=== PATIENT | male | born 1950 | race Caucasian/White ===

== ENCOUNTER 2016-07-16 19:23 | Emergency (ER) | payer OTHER ==
[~2016-07-16] VITALS: Ht 162.6 cm; Wt 72.6 kg
[2016-07-16 19:32] VITALS: BP 169/89
[2016-07-16] MEDS ORDERED: diphenhydrAMINE INJ 50MG/ML VIAL (J1200) IV STA (19:32)
[2016-07-16] MEDS ORDERED: JANU50TA8 PO (19:42)
[2016-07-16] MEDS ORDERED: RANI1TAB6 PO (19:42)
[2016-07-16] MEDS ORDERED: GLIM2TAB PO (19:42)
[2016-07-16] MEDS ORDERED: dexameTHASONE 20 MG/5 ML VIAL (J1100) IV ONE (19:45)
[2016-07-16] MEDS ORDERED: FLUTISP (19:49)
[2016-07-16] MEDS ORDERED: ASPI325T PO (19:49)
[2016-07-16] MEDS ORDERED: RANI150C PO (19:49)
[2016-07-16] MEDS ORDERED: TYLE500T78 PO (19:49)
[2016-07-16] MEDS ORDERED: MUCUTAB PO (19:49)
[2016-07-16] MEDS ORDERED: PLAV75TA38 PO (19:49)
[2016-07-16] MEDS ORDERED: NORC5TAB PO (19:49)
[2016-07-16] MEDS ORDERED: TIOT18INH INH (19:49)
[2016-07-16] MEDS ORDERED: PRAV80TA2 PO (19:49)
[2016-07-16] MEDS ORDERED: LISI-538 PO (19:49)
[2016-07-16] MEDS ORDERED: ZITHTAB PO (21:51)
[2016-07-16] MEDS ORDERED: AUGM500T34 PO (22:47)
== END 2016-07-16 22:59 | disposition home or self-care (01) ==
LOC: M ED 20:47
DX: L50.0 Allergic urticaria (principal); R22.0 Localized swelling, mass and lump, head; T36.8X5A Adverse effect of other systemic antibiotics, initial encounter; Y92.89 Other specified places as the place of occurrence of the external cause; I25.10 Atherosclerotic heart disease of native coronary artery without angina pectoris; E11.9 Type 2 diabetes mellitus without complications; I10 Essential (primary) hypertension; K21.9 Gastro-esophageal reflux disease without esophagitis; Z95.5 Presence of coronary angioplasty implant and graft; F17.200 Nicotine dependence, unspecified, uncomplicated; Z88.5 Allergy status to narcotic agent; Z88.1 Allergy status to other antibiotic agents; Z88.8 Allergy status to other drugs, medicaments and biological substances; Z79.899 Other long term (current) drug therapy; Z79.84 Long term (current) use of oral hypoglycemic drugs; Z79.02 Long term (current) use of antithrombotics/antiplatelets; Z79.82 Long term (current) use of aspirin
CPT/HCPCS: 96374; 96375; 99282; J1100; J1200

== ENCOUNTER → 2016-10-13 | Outpatient (REF) | payer OTHER ==
[~2016-10-13] MED LIST: ASPI325T PO; AUGM500T34 PO; FLUTISP; GLIM2TAB PO; JANU50TA8 PO; LISI-538 PO; MUCUTAB PO; NORC1TAB4 PO; PLAV75TA38 PO; PRAV80TA2 PO; RANI150C PO; RANI1TAB6 PO; TIOT18INH INH; TYLE500T78 PO; ZITHTAB PO
[2016-10-13 18:04] LABS: ANION GAP 8 MEQ/L (8-16); BLOOD UREA NITROGEN 20 MG/DL (7-18); CALCIUM LEVEL 9.2 MG/DL (8.8-10.2); CARBON DIOXIDE LEVEL 27 MEQ/L (21-32); CHLORIDE LEVEL 103 MEQ/L (98-107); CREATININE FOR GFR 1.13 MG/DL (0.70-1.30); GLOMERULAR FILTRATION RATE > 60.0 (>49); GLUCOSE, FASTING 162 MG/DL (80-110); POTASSIUM SERUM 4.5 MEQ/L (3.5-5.1); SODIUM LEVEL 138 MEQ/L (136-145)
[2016-10-13 18:50] LABS: BASO # 0.1 K/mm3 (0.0-0.2); BASO % 1.1 % (0.0-1.0); EOS # 0.2 K/mm3 (0.0-0.50); EOS % 2.3 % (0.0-3.0); LARGE UNSTAINED CELL # 0.3 K/mm3 (0.0-0.4); LARGE UNSTAINED CELL % 3.2 % (0.0-4.0); LYMPH # 2.7 K/mm3 (1.5-4.5); LYMPH % 31.2 % (24.0-44.0); MEAN CORPUSCULAR HEMOGLOBIN 32.2 pg (27.0-33.0); MEAN CORPUSCULAR VOLUME 94.8 fl (80.0-96.0); MONO # 0.9 K/mm3 (0.0-0.8); MONO % 10.6 % (0.0-5.0); NEUTROPHILS # 4.4 K/mm3 (1.8-7.7); NEUTROPHILS % 51.5 % (36.0-66.0); PLATELET COUNT, AUTOMATED 261 k/mm3 (150-450); RED CELL DISTRIBUTION WIDTH 12.5 % (11.5-14.5); WHITE BLOOD COUNT 8.6 K/mm3 (4.0-10.0)
[2016-10-16 00:06] LABS: Lyme Disease IgG/IgM Antibodie <0.91 ISR (0.00-0.90); Lyme Disease IgM Ab Quantitati <0.80 index (0.00-0.79)
[2016-10-17 00:06] LABS: BABESIOSIS LEVEL IGG <1:10 (Neg:<1:10); BABESIOSIS LEVEL IGM <1:10 (Neg:<1:10)
== END ==
LOC: M LAB REF 16:50
PROVIDERS: ATTEND Physician Assistant
DX: J20.9 Acute bronchitis, unspecified (principal)

== ENCOUNTER → 2018-07-28 | Outpatient (CLI) | payer MEDICARE, OTHER ==
[~2018-07-28] MED LIST changes: +ASPI-1 PO; -ASPI325T PO; -NORC1TAB4 PO; +NORC1TAB7 PO; +PLAV1TAB2 PO; -PLAV75TA38 PO
--- NOTE | 2018-07-28 13:59 | REP ---
Chest two views HISTORY: COPD Comparison: 05/08/1979 Linear density is present in the right upper lobe consistent with scar. The left lung is clear. The heart is normal in size. The pulmonary vasculature is normal in appearance. The bony structure is intact. IMPRESSION: No acute disease. Electronically Signed by Lester Hauser MD 07/28/2018 01:50 P
== END ==
LOC: M SMT 11:47
PROVIDERS: ATTEND Internal Medicine Pulmonary Disease
DX: Z87.09 Personal history of other diseases of the respiratory system (principal)

== ENCOUNTER → 2019-06-21 | Outpatient (REF) | payer MEDICARE, OTHER ==
[~2019-06-21] MED LIST changes: -GLIM2TAB PO; +GLIM2TAB4 PO; +RANI-397 PO; -RANI1TAB6 PO
[2019-06-21 13:54] LABS: INFLUENZA A AMPLIFICATION NEGATIVE (NEGATIVE); INFLUENZA B AMPLIFICATION NEGATIVE (NEGATIVE)
== END ==
LOC: M LAB REF 12:17
PROVIDERS: ATTEND Registered Nurse
DX: R50.9 Fever, unspecified (principal); R11.2 Nausea with vomiting, unspecified; R19.7 Diarrhea, unspecified

== ENCOUNTER → 2019-08-11 | Outpatient (REF) | payer MEDICARE, OTHER | LOC: M LAB REF 16:20 | PROVIDERS: ATTEND Family Medicine | DX: E78.5 Hyperlipidemia, unspecified (principal) ==

== ENCOUNTER → 2019-09-26 | Outpatient (CLI) | payer MEDICARE, OTHER ==
[~2019-09-26] MED LIST changes: +AZEL0.055 NARES; +BREO1INH3 INH; +FAMO20TA PO; +MAPA500C PO; +MUCI600T31 PO; +TRES100I SC
== END ==
LOC: M LABSMTC 10:14
PROVIDERS: ATTEND Anesthesiology
DX: Z01.818 Encounter for other preprocedural examination (principal); Z11.59 Encounter for screening for other viral diseases
CPT/HCPCS: C9803; U0003

== ENCOUNTER 2019-09-29 10:07 | Day surgery (SDC) | payer MEDICARE, OTHER ==
[~2019-09-29] VITALS: Ht 162.6 cm; Wt 73.9 kg
[~2019-09-29 10:07] MED LIST changes: +NS 1,000 ML IV ONE
[2019-09-29] MEDS ORDERED: LIDOCAINE 2% 100MG/5ML SDV (FOR ANES.) As Ordered ONE (12:16)
[2019-09-29] MEDS ORDERED: propofoL 200 MG/20 ML VIAL As Ordered ONE (12:16)
--- NOTE | 2019-09-29 12:32 | ROOR ---
Patient Name: Lester Reynaga Procedure Date: 09/29/2019 12:06 PM Date of : 1950 Age: 69 Room: [facility] Gender: Male Note Status: Finalized Procedure: Colonoscopy Indications: High risk colon cancer surveillance: Personal history of colonic polyps Providers: Maciel Cohen Jr, MD Referring MD: Kyle Avelar MD Requesting Provider: Medicines: Propofol per Anesthesia Complications: No immediate complications. Procedure: Pre-Anesthesia Assessment: - Prior to the procedure, a History and Physical was performed, and patient medications and allergies were reviewed. The patient is competent. The risks and benefits of the procedure and the sedation options and risks were discussed with the patient. All questions were answered and informed consent was obtained. Patient identification and proposed procedure were verified by the physician and the nurse in the pre-procedure area and in the procedure room. Mental Status Examination: alert and oriented. Airway Examination: normal oropharyngeal airway and neck mobility. Respiratory Examination: clear to auscultation. CV Examination: normal. ASA Grade Assessment: II - A patient with mild systemic disease. After reviewing the risks and benefits, the patient was deemed in satisfactory condition to undergo the procedure. The anesthesia plan was to use moderate sedation / analgesia (conscious sedation). Immediately prior to administration of medications, the patient was re-assessed for adequacy to receive sedatives. The heart rate, respiratory rate, oxygen saturations, blood pressure, adequacy of pulmonary ventilation, and response to care were monitored throughout the procedure. The physical status of the patient was re-assessed after the procedure. The Colonoscope was introduced through the anus and advanced to the cecum, identified by appendiceal orifice and ileocecal valve. The colonoscopy was performed without difficulty. The patient tolerated the procedure well. The quality of the bowel preparation was poor. Findings: The rectum, recto-sigmoid colon, cecum, appendiceal orifice and ileocecal valve appeared normal. Two sessile polyps were found in the sigmoid colon and descending colon. The polyps were diminutive in size. These polyps were removed with a hot snare. Resection and retrieval were complete. For hemostasis, one hemostatic clip was successfully placed. There was no bleeding at the end of the procedure. Non-bleeding internal hemorrhoids were found during endoscopy. The hemorrhoids were Grade II (internal hemorrhoids that prolapse but reduce spontaneously) and Grade III (internal hemorrhoids that prolapse but require manual reduction). Impression: - Preparation of the colon was poor. - The rectum, recto-sigmoid colon, cecum, appendiceal orifice and ileocecal valve are normal. - Two diminutive polyps in the sigmoid colon and in the descending colon, removed with a hot snare. Resected and retrieved. Clip was placed. - Non-bleeding internal hemorrhoids. Recommendation: - Repeat colonoscopy in 5 years for surveillance. Maciel Cohen MD Maciel Cohen Jr, MD 09/29/2019 12:32:36 PM Electronically signed by Maciel Cohen Jr, MD Number of Addenda: 0 Note Initiated On: 09/29/2019 12:06 PM Estimated Blood Loss: Estimated blood loss: none.
[2019-09-29 12:50] VITALS: BP 130/61
== END 2019-09-29 13:06 | disposition home or self-care (01) ==
LOC: M OPP 10:07
PROVIDERS: ATTEND Surgery
DX: Z12.11 Encounter for screening for malignant neoplasm of colon (principal); Z86.010 Personal history of colon polyps; D12.5 Benign neoplasm of sigmoid colon; D12.4 Benign neoplasm of descending colon; J44.9 Chronic obstructive pulmonary disease, unspecified; E11.9 Type 2 diabetes mellitus without complications; F17.210 Nicotine dependence, cigarettes, uncomplicated; Z79.4 Long term (current) use of insulin; Z79.82 Long term (current) use of aspirin; Z79.899 Other long term (current) drug therapy; Z88.5 Allergy status to narcotic agent; Z88.8 Allergy status to other drugs, medicaments and biological substances; Z95.5 Presence of coronary angioplasty implant and graft

== ENCOUNTER → 2020-01-24 | Outpatient (CLI) | payer MEDICARE, OTHER ==
[~2020-01-24] MED LIST changes: -NS 1,000 ML IV ONE
--- NOTE | 2020-02-01 08:27 | REP ---
CHEST X-RAY: 2-VIEWS HISTORY: Other nonspecific abnormal finding of lung field. COMPARISON: Chest x-ray 07/28/2018. FINDINGS: The lungs are symmetrically aerated and clear. Pleural angles are sharp. Heart size is normal. There is evidence of coronary artery stent material over the anterior margin of the heart on lateral radiograph unchanged. There clips in the right upper quadrant of the abdomen. Pulmonary vasculature is not increased. No significant bony abnormality is seen. IMPRESSION: No acute disease. MTDD
== END ==
LOC: M LAB 07:15
PROVIDERS: ATTEND Internal Medicine Pulmonary Disease
DX: R91.8 Other nonspecific abnormal finding of lung field (principal)

== ENCOUNTER → 2020-01-24 | Outpatient (REF) | payer MEDICARE, OTHER ==
[2020-01-24 18:09] LABS: BASO % 0.3 % (0.0-1.0); EOS # 0.1 10^3/uL (0.0-0.5); EOS % 0.7 % (0.0-3.0); HEMATOCRIT 54.7 % (42.0-52.0); HEMOGLOBIN 17.6 g/dl (13.5-17.5); LYMPH # 2.1 10^3/uL (1.5-5.0); LYMPH % 16.9 % (24.0-44.0); MEAN CORPUSCULAR HEMOGLOBIN 30.4 pg (27.0-33.0); MEAN CORPUSCULAR HGB CONC 32.2 g/dl (32.0-36.5); MEAN CORPUSCULAR VOLUME 94.6 fl (80.0-96.0); MONO # 0.6 10^3/uL (0.0-0.8); NEUTROPHILS # 9.3 10^3/uL (1.5-8.5); NEUTROPHILS % 75.9 % (36.0-66.0); PLATELET COUNT, AUTOMATED 265 10^3/uL (150-450); RED BLOOD COUNT 5.78 10^6/uL (4.30-6.10); WHITE BLOOD COUNT 12.3 10^3/uL (4.0-10.0)
== END ==
LOC: M LAB REF 16:52
PROVIDERS: ATTEND Nurse Practitioner Family
DX: J44.1 Chronic obstructive pulmonary disease with (acute) exacerbation (principal)

== ENCOUNTER → 2020-04-23 | Outpatient (REF) | payer MEDICARE, OTHER | LOC: M LAB REF 11:24 | PROVIDERS: ATTEND Family Medicine | DX: Z01.89 Encounter for other specified special examinations (principal) ==

== ENCOUNTER → 2020-07-20 | Outpatient (CLI) | payer MEDICARE, OTHER ==
[~2020-07-20] MED LIST changes: -LISI-538 PO; +LISI20TA33 PO
--- NOTE | 2020-07-20 15:38 | REP ---
INDICATION: PAIN IN LEG COMPARISON: None. TECHNIQUE: Real time andre scale and Duplex Doppler evaluation of the bilateral lower extremity arterial vasculature using linear high frequency transducer. FINDINGS: Andre scale and duplex doppler images demonstrate slow flow in the proximal right common iliac artery suspicious for stenosis. Common iliac arteries are not well visualized due to bowel gas. There is severe diffuse bilateral plaquing of the lower extremity arterial structures. On the right there are diffuse monophasic waveforms. There is high-grade stenosis with trickle flow of the distal right superficial femoral artery. Diffuse low flow is seen in the calf arteries with high diastolic flow. Approximately 2-1 stenosis is noted of the right profunda. Biphasic waveform is seen in the left common femoral artery and profunda. Monophasic waveforms are seen from the proximal left SFA inferiorly with very slow flow velocities. There is reversal of flow in the left anterior tibial artery, the posterior tibial artery is the only patent artery supplying the foot. AMBROCIO right 0.64 left 0.48. Peak systolic velocities (cm/sec) Distal abdominal aorta: 41 Common iliac artery: Right 47; left 82 External iliac artery: Right 124; left 94 Common femoral artery: Right 169; Left 82 Profunda femoris: Right 293; Left 100 SFA (proximal): Right 70; Left 50 SFA (mid): Right 90; Left 25 SFA (distal): Right 44; Left 32 Popliteal artery: Right 38; Left 13 SHANTA (prox.): Right 18; Left 27 Tibioperoneal trunk: Right 24; Left 27 UTILITY ENGINEER (prox.): Right 76; Left 37 UTILITY ENGINEER (distal): Right 13; Left 20 SHANTA (distal): Right 4; Left reversed, 5 IMPRESSION: Suspect stenosis proximal right common iliac artery. Diffuse severe plaquing bilateral lower extremities. High-grade stenosis with trickle flow distal right SFA. Approximately 2-1 stenosis right profunda. Slow flow velocities throughout the left lower extremity arterial system with reversed flow at the left anterior tibial artery. <Electronically signed by Abelardo Andre > 07/20/20 1832
== END ==
LOC: M RAD 13:06
PROVIDERS: ATTEND Physician Assistant
DX: M79.604 Pain in right leg (principal); M79.605 Pain in left leg; R09.89 Other specified symptoms and signs involving the circulatory and respiratory systems

== ENCOUNTER → 2020-08-01 | Outpatient (CLI) | payer MEDICARE, OTHER ==
[2020-08-01 15:38] LABS: HEMATOCRIT 53.3 % (42.0-52.0); HEMOGLOBIN 17.1 g/dl (13.5-17.5); MEAN CORPUSCULAR HEMOGLOBIN 30.6 pg (27.0-33.0); MEAN CORPUSCULAR HGB CONC 32.1 g/dl (32.0-36.5); MEAN CORPUSCULAR VOLUME 95.3 fl (80.0-96.0); PLATELET COUNT, AUTOMATED 220 10^3/uL (150-450); RED BLOOD COUNT 5.59 10^6/uL (4.30-6.10); WHITE BLOOD COUNT 9.6 10^3/uL (4.0-10.0)
[2020-08-01 16:07] LABS: BLOOD UREA NITROGEN 24 MG/DL (7-18); CALCIUM LEVEL 9.4 MG/DL (8.8-10.2); CARBON DIOXIDE LEVEL 24 MEQ/L (21-32); CHLORIDE LEVEL 106 MEQ/L (98-107); CREATININE FOR GFR 0.98 MG/DL (0.70-1.30); GLOMERULAR FILTRATION RATE > 60.0 (>49); GLUCOSE, FASTING 148 MG/DL (70-100); SODIUM LEVEL 137 MEQ/L (136-145)
== END ==
LOC: M LAB 14:31
PROVIDERS: ATTEND Physician Assistant
DX: I87.2 Venous insufficiency (chronic) (peripheral) (principal)

== ENCOUNTER → 2020-08-08 | Outpatient (CLI) | payer MEDICARE, OTHER ==
[~2020-08-08] MED LIST changes: +ACETAMINOPHEN 325 MG TAB As Ordered ONE; +ISOVUE-300 61% 50ML VIAL As Ordered ONE; +LIDOCAINE 1% MDV 20ML VIAL As Ordered ONE; +MIDAZOLAM INJ 2MG/2ML VIAL (J2250 PER 1MG) As Ordered ONE; +PERCOCET 5MG/325MG TAB As Ordered ONE; +fentaNYL 100 MCG/2 ML INJECTION (J3010) As Ordered ONE
--- NOTE | 2020-08-08 09:52 | ROOPDOC ---
[facility] Report Of Operation Report of Operation DATE OF PROCEDURE: 08/08/20 PREPROCEDURE DIAGNOSES: Atherosclerosis in the [place] arteries with lifestyle limiting claudication, right lower extremity worse than left POSTPROCEDURE DIAGNOSES: Same PROCEDURE: 1. Ultrasound-guided access left common femoral artery 2. Aortoiliofemoral arteriogram 3. Selection left common femoral and superficial femoral artery with left lower extremity runoff 4. Cross chronic total occlusion left superficial femoral artery was selection popliteal artery and arteriogram 5. Selection distal anterior tibial artery and arteriogram 6. Angioplasty left superficial femoral artery with 6 x 200 [place] balloon 7. Stents left superficial femoral artery with 6 x 150 and 7 x 150 Innova stents with 6 x 200 [place] balloon post-dilation 8. Angioplasty left anterior tibial artery and posterior tibial artery with 2.5 x 220 Lenny balloon 9. Angioplasty right common iliac artery and proximal external iliac artery with 8 x 100 [place] balloon 10. Angioplasty left common iliac artery and proximal external iliac artery with 8 x 100 [place] balloon 11. Mynx closure left common femoral artery SURGEON: Conrado Jarrett MD ANESTHESIA: Local anesthesia 8 mL lidocaine. Moderate intravenous conscious sedation was supervised by Dr. Jarrett. The patient was independently monitored by registered nurse under the department of radiology using automated blood pressure, EKG, and pulse oximetry. The detailed sedation record is permanently stored in the hospital information system. The following is a brief sedation record: Start time 08:083, stop time 09:19, Versed 2 mg IV, fentanyl 100 g IV, heparin 4000 units IV. CONTRAST: 46 mL Isovue-300 INDICATION FOR PROCEDURE: This is a very pleasant 70-year-old gentleman with severe atherosclerosis of the bilateral lower extremities, multi-level at the iliacs femorals and tibial vessels. He has lifestyle limiting claudications in both lower extremities, but the right lower extremity is more symptomatic. Risks benefits and alternatives to and arteriogram and potential intervention were explained to the patient and he is agreeable to proceed. Informed consent was obtained. INTERPRETATION: 1. The distal aorta is calcified but widely patent with patent runoff into the bilateral common iliac arteries, but they are both ectatic and mildly stenotic throughout. On the right, there is also heavy plaque but less stenosis through the external iliac artery, but on the left there is heavy plaque and stenosis throughout the left iliac artery, especially near its origin just distal to the bifurcation of the common iliac artery. The hypogastric arteries are diminutive and calcified but patent. 2. The right common femoral artery has heavy calcified plaque and areas of focal stenosis ranging from 30-60%. There is good runoff into a very large profunda which provides extensive collateral flow to the distal superficial femoral artery and the popliteal artery. The SFA is patent proximally but heavily stenotic and has areas of focal stenosis near occlusion throughout the proximal two thirds the vessel. Just distal to the midportion of the vessel it occludes for proximally 4 cm and then has reconstituted flow from collaterals. There is heavy calcified plaque in the area of occlusion and throughout the vessel. The popliteal artery has some mild plaque proximally, but the mid and distal po rtions although somewhat diminutive are patent. The tibial runoff is also compromised. The best of the 3 vessels is the peroneal artery, with good flow all the way to the ankle. However, the right anterior tibial artery and posterior tibial artery has thready flow proximally, and intermittent occlusions with reconstitution all the way to the ankle with scant runoff to the foot. 3. After angioplasty of the superficial femoral artery, there is patent flow in the area of occlusion but multiple flow-limiting areas of residual stenosis and dissection in the areas of heaviest plaque throughout the vessel. After stenting and post dilating with a by 200 balloon, there is widely patent flow through the superficial femoral artery, but it is somewhat slow distally due to poor tibial runoff. 4. After angioplasty of both the posterior tibial artery and anterior tibial artery on the right, there was spasm in the distal vessels and limited runoff. After repeat angioplasty of the very distal right posterior tibial artery into the pedal arch, there is somewhat better flow through this vessel. After selection of the distal anterior tibial artery, we noted that there was no significant pedal runoff at the ankle and we were not able to cross into the dorsal pedis artery. There is a small amount of extravasation at the origin of the dorsal pedis artery after attempts, but this resolved quickly due to lack of flow. Completion tibial arteriogram showed good flow in the proximal aspect of L3 vessels, and good runoff through the posterior tibial and peroneal arteries although some spasm is present in the posterior tibial artery. The anterior tibial artery has sluggish flow but flow does make it to the ankle where there are some collateral vessels proximal to the foot. These collaterals to fill into the more distal foot, although they are very diminutive in size. 5. After angioplasty of the right iliac arteries, there is widely patent flow with minimal residual stenosis, no dissection extravasation noted. After angioplasty of the left iliac arteries, there is still some heavy plaque, but a marked improvement of inflow to the left iliac system. Most likely, we'll make come back to treat the left lower extremity, we will likely need to stents this area, before today the flow was much improved without stenting. No extravasation or embolization. REPORT OF OPERATION: The patient was brought to the angiographic suite in stable condition. His bilateral groins were prepped and draped in a sterile fashion. A timeout was performed. Sedation was administered without complication. His left groin was anesthetized with local anesthesia and a microneedle was used to access left common femoral artery under ultrasound guidance. A wire was passed through this access needle was removed. A 4 Indonesian sheath was placed and flushed with saline. A Glidewire and flushing catheter were advanced into the distal aorta and aortoiliofemoral arteriogram were performed, please interpretation above. With him and up and over the bifurcation selected the right common femoral and superficial femoral artery and right lower extremity arteriograms were performed, please interpretation above. We then advanced a wire down to the occlusion in the right at the vein exchange the sheath for 6 x 45 cm destination taken flushed the sheath was saline. A [place] catheter was used with Glidewire to cross through in the true lumen of the vessel through the occlusion to the popliteal artery. We then confirmed we're in the true lumen with a quick arteriogram at a selection of the popliteal artery. We then advanced the wire and a 6 x 200 [place] balloon was used to three-minute inflations to angioplasty along the length of the vessel. Following this, 6 x 150 Innova stent was placed from the distal SFA to the mid and extended with a 1 cm overlap with a 7 x 150 Innova stent and both stents were postdilated with a 6 x 200 [place] balloon. Following this there is widely patent flow throughout the SFA with no significant residual stenosis noted. No extravasation noted. We then exchange the wire for a 018 wire advantage and advances into the anterior tibial artery. We were able to cross distally and we angioplasty along the length of the vessel with multiple three-minute inflations with a 2-5 x 220 Lenny balloon. Following this, we advanced the wire into the posterior tibial artery and advanced the balloon and did similar three-minute inflations along the length of the vessel. After angioplasty, both vessels were patent, with some spasm, and limited outflow. We then replaced the wire and the posterior tibial artery and advanced and more distally into the pedal arch. We advanced the balloon down further and it is second distal angioplasty. Following this there was definitely improvement in the posterior tibial artery outflow. However, we could not cross into the dorsal pedis from the anterior tibial artery. We tried, and advance the balloon, but upon injection of contrast through the balloon for selection of the distal anterior tibial artery, we saw that there is a small amount of contrast extravasation from our attempts to cross into the dorsal pedis artery and limited collateral flow in the proximal. These collaterals did have minimal outflow more distally in the foot, but not as good as in my dorsal pedis flow would be. Unfortunately, this was as much tibial improvement as we could offer, but it is certainly much better. We then exchange the wire again back to the 035 Glidewire and over this we advanced an 8 x 100 [place] balloon into the right common iliac system and retracted R sheath into the left common iliac system. Three-minute inflation was performed and there was good flow following this with no significant residual stenosis. This seemed to resolve his minimal inflow issues on the right. We then retracted the balloon into the left iliac system and angioplasty for three-minute inflations along the left common iliac artery and external iliac artery proximally. Following this, there was definitely improvement in flow, but still some minimal stenosis at the area of heaviest plaque at the proximal external iliac artery. The more distal external iliac stenoses we did not address today. We will likely need further angioplasty and stenting of the left iliac system which we can do will be come back to treat the left lower extremity arterial disease. We therefore exchange the sheath over the wire for short 6 Indonesian sheath and deployed a Mynx closure device and pressure was held. Good hemostasis was noted. Following this, sterile dressings were applied and the patient was taken to recovery in stable condition. He tolerated the procedure and the sedation well. ESTIMATED BLOOD LOSS: Approximately 4 mL. COMPLICATIONS: none PLAN: It is okay to resume home diet it is okay to resume home diet and medications. Okay to resume Plavix in the morning, 08/09/2020. No lifting greater than 5 pounds for 72 hours, no strenuous exercise for 72 hours. We'll see the patient back in a week to check his groin access site and his perfusion. At that time we will discuss options to set him up for a left lower extremity arteriogram and intervention. We appreciate the opportunity to participate in the care of this patient. CONRADO JARRETT MD Aug 08, 2020 09:52
[2020-08-08 13:47] VITALS: BP 122/55
== END ==
LOC: M IRPRO 06:37
PROVIDERS: ATTEND Surgery Vascular Surgery
DX: I70.213 Atherosclerosis of native arteries of extremities with intermittent claudication, bilateral legs (principal); I70.92 Chronic total occlusion of artery of the extremities
CPT/HCPCS: 37220; 37222; 37226; 37228; 37232; 75630; 75774; 99152; 99153; C1725; C1729; C1760; C1769; C1876; C1887; C1894; J1644; J2250; J3010; Q9967

== ENCOUNTER → 2020-08-09 | Outpatient (CLI) | payer MEDICARE, OTHER ==
[~2020-08-09] MED LIST changes: -ACETAMINOPHEN 325 MG TAB As Ordered ONE; -ISOVUE-300 61% 50ML VIAL As Ordered ONE; +ISOVUE-370 76% 100ML VIAL As Ordered ONE; -LIDOCAINE 1% MDV 20ML VIAL As Ordered ONE; -MIDAZOLAM INJ 2MG/2ML VIAL (J2250 PER 1MG) As Ordered ONE; -PERCOCET 5MG/325MG TAB As Ordered ONE; -fentaNYL 100 MCG/2 ML INJECTION (J3010) As Ordered ONE
--- NOTE | 2020-08-09 11:51 | REP ---
INDICATION: LEG PAIN, S/P FEM LT TIB SHERRY ILIAC ARTERIES. Status post stents. Status post bilateral iliac and right superficial femoral and calf angioplasty on 08 August 2020. COMPARISON: Comparison is made with abdominal CT images from October 28, 2014.. TECHNIQUE: Helical scanning is acquired following the intravenous injection of 100 mL of Isovue 370. 3 mm axial images re-formatted. Coronal and sagittal MPR and coronal MIP images are generated. 3D surface rendered images are generated and reviewed in a rotational format. Curved MPR images are generated and reviewed as well. FINDINGS: Non angiographic incidental abnormalities include bilateral low-density adrenal lesions right larger than left. These are observed on the 2015 study. The left is unchanged the right measures 3.4 cm today and in 2015 it measured 2.6 cm. There are low-density nodules consistent with small benign adrenal adenomas. The gallbladder is surgically absent. There are tiny cortical cysts in each kidney 1 on each side. Dystrophic calcifications are seen in the prostate gland. Arterial vascular findings. The left gastric artery takes a direct aortic origin which is a normal variant. There is a combined celiac, SMA trunk (celiacomesenteric trunk) arising from the aorta several cm distal to the origin of the left gastric artery. There is some atherosclerotic soft plaquing in this common trunk but no high-grade stenosis is seen. The superior mesenteric artery contains some calcification but again no stenosis or occlusion is seen. The inferior mesenteric artery is patent at its origin with evidence of moderate 75-80% stenosis. The renal arteries are duplicated bilaterally. There are small bilateral nonstenotic upper pole branches. Some calcific plaquing is seen at the origin of the lower pole larger renal arteries bilaterally. No high-grade stenosis is seen. The suprarenal and infrarenal abdominal aorta is normal in caliber but heavily calcified. No high-grade aortic stenosis is seen. There is moderate atherosclerotic calcific and soft plaquing of the common iliac arteries bilaterally but no high-grade stenosis is seen. Heavy calcification is seen at the origin of the internal iliac arteries. These arteries are felt to be stenotic bilaterally at their origin but patent. The external iliac arteries are patent. On the right the external iliac artery shows moderate diffuse calcific and soft plaquing. There is approximately 50% narrowing of the external iliac artery in the right groin distally. This continues into the common femoral artery. There is approximately 60% stenosis at the origin of the common femoral artery on the right. Moderate calcific plaquing is seen. A 2nd 50% stenosis is seen in the distal common femoral artery on the right. There is a stent in place in the proximal superficial femoral artery on the right and the vessel appears patent. Patent stented is superficial femoral artery is seen to the popliteal. Popliteal artery is a good caliber and appears patent. There is atherosclerotic calcification at the bifurcation of the tibial-peroneal trunk but the 3 vessel calf runoff is seen to the ankle. On the left, there is atherosclerotic plaquing and calcification in the external iliac artery but no stenotic area greater than 50% is observed. The left common femoral artery is of good caliber although there is calcific plaquing. There is moderate stenosis at the origin of the superficial femoral artery on the left, 50%. The profunda and superficial femoral artery are patent on the left. There is irregular luminal narrowing of the mid superficial femoral artery on the left with 75 80% stenosis. This is somewhat elongate. Below the adductor canal the distal SFA and popliteal are of good caliber. The anterior tibial artery is not opacified in the mid calf. Tibioperoneal trunk and peroneal and posterior tibial arteries are patent to the distal calf. The posterior tibial artery is seen to be patent across the ankle. In general, there is less robust opacification of the calf runoff vessels on the left compared to the right. IMPRESSION: 1. Variant visceral anatomy including direct aortic origin of the left gastric and a celiacomesenteric trunk. Renal arteries are bilaterally duplicated as well. 2. Right lower extremity stenoses including a external iliac artery, right common femoral artery. Patent extensive stent in the right superficial femoral artery with three-vessel runoff. 3. Left common femoral artery stenosis. Multiple superficial femoral artery stenoses expected Ali distally with generally poor distal runoff flow. Anterior tibial artery on the left is not opacified. 4. Bilateral small benign adrenal adenomas and small renal cysts. <Electronically signed by Qasim Lira > 08/09/20 [id number]
== END ==
LOC: M RAD 10:18
PROVIDERS: ATTEND Surgery Vascular Surgery
DX: I70.203 Unspecified atherosclerosis of native arteries of extremities, bilateral legs (principal); N28.1 Cyst of kidney, acquired; M79.606 Pain in leg, unspecified
CPT/HCPCS: 75635; Q9967

== ENCOUNTER → 2020-09-12 | Outpatient (CLI) | payer MEDICARE, OTHER ==
[~2020-09-12] MED LIST changes: -ISOVUE-370 76% 100ML VIAL As Ordered ONE
--- NOTE | 2020-09-12 14:59 | REP ---
INDICATION: ATH DEBRA ART OF EXT WITH INTER JOSUE, SHERRY LEGS COMPARISON: None. TECHNIQUE: Bilateral lower extremity arterial Doppler. FINDINGS: All numeric values represent peak systolic velocities incm/sec. On the right: The ankle brachial index is 1.0 ROLL CUTTER: 236-157 biphasic Profunda: 195 biphasic SFA proximal stent: 108 biphasic SFA mid stent: 12/24/2053 biphasic SFA distal stent: 59-36 biphasic Popliteal :29 biphasic SHANTA proximal: 47 monophasic Tibioperoneal trunk: 58 monophasic SECURITY OPERATIONS MANAGER proximal: 61 monophasic SECURITY OPERATIONS MANAGER distal: 53 monophasic SHANTA distal: 37 monophasic On the left: The ankle brachial index is 0.57 ROLL CUTTER: 84 monophasic Profunda: 54 monophasic SFA proximal: 54 monophasic SFA mid: 12 monophasic SFA distal: 24 monophasic Popliteal: 11 monophasic SHANTA proximal: 44 monophasic Tibioperoneal trunk: 38 monophasic SECURITY OPERATIONS MANAGER proximal: 42 monophasic SECURITY OPERATIONS MANAGER distal: 27 monophasic SHANTA distal: 12 monophasic The technologist noted significant plaque in the right lower extremity from the common femoral artery into the bifurcation. In the proximal SFA to above the knee the stent is patent. Severe plaque was seen on the left with luminal narrowing felt to have increased from the prior exam IMPRESSION: As above <Electronically signed by Nemesio Brandt > 09/12/20 8421
== END ==
LOC: M RAD 12:04
PROVIDERS: ATTEND Physician Assistant
DX: I70.213 Atherosclerosis of native arteries of extremities with intermittent claudication, bilateral legs (principal)

== ENCOUNTER → 2020-12-04 | Outpatient (CLI) | payer MEDICARE, OTHER ==
[2020-12-04 14:36] LABS: INR 0.85
[2020-12-04 14:37] LABS: PARTIAL THROMBOPLASTIN TIME 32.4 SECONDS (25.9-37.0)
[2020-12-04 14:43] LABS: BLOOD UREA NITROGEN 30 MG/DL (7-18); CALCIUM LEVEL 9.3 MG/DL (8.8-10.2); CARBON DIOXIDE LEVEL 23 MEQ/L (21-32); CHLORIDE LEVEL 111 MEQ/L (98-107); CREATININE FOR GFR 1.02 MG/DL (0.70-1.30); GLOMERULAR FILTRATION RATE > 60.0 (>49); GLUCOSE, FASTING 148 MG/DL (70-100); SODIUM LEVEL 141 MEQ/L (136-145)
== END ==
LOC: M LAB 13:37
PROVIDERS: ATTEND Surgery Vascular Surgery
DX: I70.212 Atherosclerosis of native arteries of extremities with intermittent claudication, left leg (principal); D69.8 Other specified hemorrhagic conditions; Z01.818 Encounter for other preprocedural examination

== ENCOUNTER → 2020-12-05 | Outpatient (REF) | payer MEDICARE, OTHER ==
[2020-12-05 11:57] LABS: BASO # 0.1 10^3/uL (0.0-0.2); BASO % 0.4 % (0.0-1.0); EOS # 0.2 10^3/uL (0.0-0.5); EOS % 1.3 % (0.0-3.0); HEMATOCRIT 53.3 % (42.0-52.0); HEMOGLOBIN 16.9 g/dl (13.5-17.5); LYMPH # 2.6 10^3/uL (1.5-5.0); MEAN CORPUSCULAR HEMOGLOBIN 30.3 pg (27.0-33.0); MEAN CORPUSCULAR HGB CONC 31.7 g/dl (32.0-36.5); MEAN CORPUSCULAR VOLUME 95.7 fl (80.0-96.0); MONO # 0.9 10^3/uL (0.0-0.8); MONO % 7.7 % (2.0-8.0); NEUTROPHILS # 7.9 10^3/uL (1.5-8.5); NEUTROPHILS % 67.8 % (36.0-66.0); PLATELET COUNT, AUTOMATED 229 10^3/uL (150-450); RED BLOOD COUNT 5.57 10^6/uL (4.30-6.10); WHITE BLOOD COUNT 11.7 10^3/uL (4.0-10.0)
== END ==
LOC: M LAB 11:28
PROVIDERS: ATTEND Surgery Vascular Surgery
DX: Z01.818 Encounter for other preprocedural examination (principal); I70.212 Atherosclerosis of native arteries of extremities with intermittent claudication, left leg; D69.8 Other specified hemorrhagic conditions

== ENCOUNTER → 2021-01-10 | Outpatient (CLI) | payer MEDICARE, OTHER ==
--- NOTE | 2021-01-10 17:10 | REP ---
INDICATION: ABN IMAG THYROID NODULE. COMPARISON: None. TECHNIQUE: Real-time sonographic evaluation of thyroid performed. FINDINGS: Both lobes of the thyroid are normal in size, right lobe measuring 4.0 x 1.9 x 1.7 cm and left lobe 3.8 x 1.7 x 1.7 cm. There is a subtle slightly hypoechoic nodule in the left lower pole measuring 5 x 9 mm. A cyst in the right upper pole measures 6 x 7 x 5 mm. In the right lower pole there is a complex cystic and solid nodule measuring 11 x 8 x 11 mm. IMPRESSION: Small cystic and solid nodules as discussed in detail above. Utilizing TI-RADS criteria, none of the nodules fulfill size criteria for FNA or follow-up. <Electronically signed by Abelardo Andre > 01/10/21 [id number]
== END ==
LOC: M RAD 13:38
PROVIDERS: ATTEND Family Medicine
DX: E04.2 Nontoxic multinodular goiter (principal)

== ENCOUNTER → 2021-04-29 | Outpatient (REF) | payer MEDICARE, OTHER ==
[2021-04-29 14:09] LABS: ATYPICAL LYMPH 3 % (0-5); BASOPHILS 3 % (0-1); EOSINOPHILS 3 % (0-3); LYMPHOCYTES 67 % (16-44); MONOCYTES 5 % (0-5); NEUTROPHILS 19 % (28-66)
[2021-04-29 14:10] LABS: ANISOCYTOSIS 1+; OVALOCYTES 1+; PLATELET ESTIMATE NORMAL (NORMAL); POIKILOCYTOSIS 1+
== END ==
LOC: M LAB REF 11:49
PROVIDERS: ATTEND Family Medicine
DX: D72.89 Other specified disorders of white blood cells (principal)

== ENCOUNTER → 2021-04-30 | Outpatient (REF) | payer MEDICARE, OTHER ==
[2021-04-30 16:37] LABS: HEMATOCRIT 39.1 % (42.0-52.0); HEMOGLOBIN 12.5 g/dl (13.5-17.5); MEAN CORPUSCULAR VOLUME 93.8 fl (80.0-96.0); PLATELET COUNT, AUTOMATED 301 10^3/uL (150-450); RED BLOOD COUNT 4.17 10^6/uL (4.30-6.10); WHITE BLOOD COUNT 10.6 10^3/uL (4.0-10.0)
[2021-04-30 20:51] LABS: BASOPHILS 1 % (0-1); EOSINOPHILS 2 % (0-3); LYMPHOCYTES 54 % (16-44); METAMYELOCYTES 1 % (0-0); MONOCYTES 8 % (0-5); NEUTROPHILS 32 % (28-66)
[2021-04-30 20:52] LABS: PLATELET ESTIMATE NORMAL (NORMAL)
== END ==
LOC: M LAB REF 16:23
PROVIDERS: ATTEND Family Medicine
DX: D72.89 Other specified disorders of white blood cells (principal); Z79.82 Long term (current) use of aspirin; Z79.899 Other long term (current) drug therapy

== ENCOUNTER → 2021-08-13 | Outpatient (CLI) | payer MEDICARE, OTHER | LOC: M RAD 14:14 | PROVIDERS: ATTEND Internal Medicine Pulmonary Disease | DX: J44.9 Chronic obstructive pulmonary disease, unspecified (principal) ==

== ENCOUNTER → 2021-09-12 | Outpatient (CLI) | payer MEDICARE, OTHER ==
[2021-09-12 17:33] LABS: BASO # 0.1 10^3/uL (0.0-0.2); BASO % 0.7 % (0.0-1.0); EOS # 0.2 10^3/uL (0.0-0.5); EOS % 1.9 % (0.0-3.0); HEMATOCRIT 50.9 % (42.0-52.0); HEMOGLOBIN 15.5 g/dl (13.5-17.5); LYMPH # 3.1 10^3/uL (1.5-5.0); MEAN CORPUSCULAR HGB CONC 30.5 g/dl (32.0-36.5); MEAN CORPUSCULAR VOLUME 82.1 fl (80.0-96.0); MONO # 0.9 10^3/uL (0.0-0.8); MONO % 9.7 % (2.0-8.0); NEUTROPHILS # 5.1 10^3/uL (1.5-8.5); NEUTROPHILS % 54.2 % (36.0-66.0); PLATELET COUNT, AUTOMATED 245 10^3/uL (150-450); WHITE BLOOD COUNT 9.3 10^3/uL (4.0-10.0)
[2021-09-12 17:44] LABS: INR 1.03; PROTHROMBIN TIME 13.9 SECONDS (12.7-14.5)
[2021-09-12 17:45] LABS: PARTIAL THROMBOPLASTIN TIME 41.5 SECONDS (25.9-37.0)
[2021-09-12 17:50] LABS: BLOOD UREA NITROGEN 21 MG/DL (7-18); CALCIUM LEVEL 9.5 MG/DL (8.8-10.2); CARBON DIOXIDE LEVEL 26 MEQ/L (21-32); CHLORIDE LEVEL 107 MEQ/L (98-107); CREATININE FOR GFR 1.07 MG/DL (0.70-1.30); GLOMERULAR FILTRATION RATE > 60.0 (>49); GLUCOSE, FASTING 133 MG/DL (70-100); POTASSIUM SERUM 4.7 MEQ/L (3.5-5.1); SODIUM LEVEL 142 MEQ/L (136-145)
== END ==
LOC: M LAB 16:16
PROVIDERS: ATTEND Surgery Vascular Surgery
DX: I73.9 Peripheral vascular disease, unspecified (principal); T82.858A Stenosis of other vascular prosthetic devices, implants and grafts, initial encounter

== ENCOUNTER → 2022-03-21 | Outpatient (CLI) | payer MEDICARE, OTHER ==
[~2022-03-21] MED LIST changes: +CLOP75TA99 PO; -PLAV1TAB2 PO
== END ==
LOC: M LAB 13:41
PROVIDERS: ATTEND Registered Nurse
DX: R05.9 Cough, unspecified (principal)

== ENCOUNTER 2022-07-06 09:14 | Emergency (ER) | payer MEDICARE, OTHER ==
[~2022-07-06] VITALS: Ht 162.6 cm; Wt 70.5 kg
[~2022-07-06 09:14] MED LIST changes: -FLUTISP; +FLUTISP NARES
[2022-07-06] MEDS ORDERED: methylPREDNISolone 125MG 2ML VIAL IV ONE (09:30)
[2022-07-06 09:52] LABS: BASO % 0.3 % (0.0-1.0); EOS % 0.3 % (0.0-3.0); HEMATOCRIT 50.1 % (42.0-52.0); HEMOGLOBIN 15.9 g/dl (13.5-17.5); LYMPH # 1.1 10^3/uL (1.5-5.0); MEAN CORPUSCULAR HEMOGLOBIN 30.3 pg (27.0-33.0); MEAN CORPUSCULAR HGB CONC 31.7 g/dl (32.0-36.5); MEAN CORPUSCULAR VOLUME 95.4 fl (80.0-96.0); MONO # 0.8 10^3/uL (0.0-0.8); MONO % 12.6 % (2.0-8.0); NEUTROPHILS # 4.3 10^3/uL (1.5-8.5); NEUTROPHILS % 69.3 % (36.0-66.0); PLATELET COUNT, AUTOMATED 183 10^3/uL (150-450); RED BLOOD COUNT 5.25 10^6/uL (4.30-6.10); WHITE BLOOD COUNT 6.3 10^3/uL (4.0-10.0)
[2022-07-06] MEDS: IPRATROPIUM 0.5MG/ALBUTEROL 2.5MG INH SOL UD 3ML (DUONEB) NEB SCH ×3 (09:55→11:31)
[2022-07-06 10:00] VITALS: O2SAT 96
[2022-07-06 10:17] VITALS: BP 135/77
[2022-07-06 10:21] LABS: ALBUMIN 3.9 G/DL (3.2-5.2); ALKALINE PHOSPHATASE 71 U/L (46-116); ALT/SGPT 23 U/L (7.0-40); AST/SGOT 29 U/L (<34); BILIRUBIN,DIRECT 0.1 MG/DL (<0.4); BILIRUBIN,TOTAL 0.4 MG/DL (0.3-1.2); BLOOD UREA NITROGEN 19 MG/DL (9-23); CALCIUM LEVEL 8.9 MG/DL (8.3-10.6); CARBON DIOXIDE LEVEL 24 MMOL/L (20-31); CHLORIDE LEVEL 104 MMOL/L (98-107); CREATININE FOR GFR 0.83 MG/DL (0.70-1.30); GLOMERULAR FILTRATION RATE > 60.0 (>42); GLUCOSE, FASTING 108 MG/DL (74-106); POTASSIUM SERUM 4.7 MMOL/L (3.5-5.1); SODIUM LEVEL 137 MMOL/L (136-145); TOTAL PROTEIN 7.2 G/DL (5.7-8.2)
[2022-07-06] MEDS ORDERED: PRED20TA PO (10:21)
[2022-07-06] MEDS ORDERED: BENZONATATE 100MG CAPSULE PO ONE (10:50)
== END 2022-07-06 11:53 | disposition left against medical advice (07) ==
LOC: EDBD 09:14 → M ED 09:15
DX: J44.1 Chronic obstructive pulmonary disease with (acute) exacerbation (principal); I11.9 Hypertensive heart disease without heart failure; E78.5 Hyperlipidemia, unspecified; E11.9 Type 2 diabetes mellitus without complications; F17.200 Nicotine dependence, unspecified, uncomplicated; I73.9 Peripheral vascular disease, unspecified; Z95.1 Presence of aortocoronary bypass graft; Z88.5 Allergy status to narcotic agent; Z88.1 Allergy status to other antibiotic agents; Z88.8 Allergy status to other drugs, medicaments and biological substances; Z79.82 Long term (current) use of aspirin; Z79.84 Long term (current) use of oral hypoglycemic drugs; Z79.899 Other long term (current) drug therapy; Z79.4 Long term (current) use of insulin
CPT/HCPCS: 36600; 71046; 80048; 80076; 82803; 83880; 85025; 87040; 87486; 87581; 87633; 87798; 93005; 93041; 94640; 94760; 96374; 99284; J2930

== ENCOUNTER 2022-07-08 03:42 | Inpatient (IN) | payer MEDICARE, OTHER ==
[~2022-07-08] VITALS: Ht 162.6 cm; Wt 64.5 kg
[2022-07-08] VITALS (10 sets, daily range): BP systolic 100–133; BP diastolic 59–76
[~2022-07-08 03:42] MED LIST changes: +PRED20TA PO
[2022-07-08] MEDS ORDERED: IPRATROPIUM 0.5MG/ALBUTEROL 2.5MG INH SOL UD 3ML (DUONEB) NEB PRN (04:00)
[2022-07-08 04:26] LABS: BASO % 0.2 % (0.0-1.0); EOS % 0.1 % (0.0-3.0); LYMPH # 3.5 10^3/uL (1.5-5.0); MEAN CORPUSCULAR HEMOGLOBIN 30.1 pg (27.0-33.0); MONO % 12.3 % (2.0-8.0); NEUTROPHILS # 8.7 10^3/uL (1.5-8.5); NEUTROPHILS % 61.9 % (36.0-66.0); PLATELET COUNT, AUTOMATED 237 10^3/uL (150-450); RED BLOOD COUNT 5.98 10^6/uL (4.30-6.10); WHITE BLOOD COUNT 14.1 10^3/uL (4.0-10.0)
[2022-07-08 05:29] LABS: ALKALINE PHOSPHATASE 67 U/L (46-116); ALT/SGPT 17 U/L (7.0-40); AST/SGOT 29 U/L (<34); BILIRUBIN,DIRECT < 0.1 MG/DL (<0.4); BILIRUBIN,TOTAL 0.4 MG/DL (0.3-1.2); BLOOD UREA NITROGEN 35 MG/DL (9-23); CALCIUM LEVEL 8.9 MG/DL (8.3-10.6); CARBON DIOXIDE LEVEL 28 MMOL/L (20-31); CHLORIDE LEVEL 104 MMOL/L (98-107); CK-MB VALUE MASS 3.6 NG/ML (<3.6); CPK CREATINE PHOSPHOKINASE 82 U/L (46-171); CREATININE FOR GFR 0.86 MG/DL (0.70-1.30); GLOMERULAR FILTRATION RATE > 60.0 (>42); GLUCOSE, FASTING 73 MG/DL (74-106); MB/CK RELATIVE INDEX 4.39 (< OR =4); POTASSIUM SERUM 4.9 MMOL/L (3.5-5.1); SODIUM LEVEL 139 MMOL/L (136-145); TOTAL PROTEIN 7.5 G/DL (5.7-8.2)
[2022-07-08 05:30] LABS: MONO # 1.7 10^3/uL (0.0-0.8)
[2022-07-08 06:29] LABS: MB/CK RELATIVE INDEX 4.91 (< OR =4)
[2022-07-08] MEDS ORDERED: methylPREDNISolone 125MG 2ML VIAL IV ONE (07:35)
[2022-07-08] MEDS: ALBUTEROL SULFATE 2.5MG/0.5ML INH NEB SOLN NEB SCH ×4 (08:00→19:09)
[2022-07-08] MEDS ORDERED: DEXTROSE 50% 50ML SYRINGE IV PRN (08:15)
[2022-07-08] MEDS ORDERED: GLUCAGON INJ 1MG VIAL SC PRN (08:15)
[2022-07-08] MEDS ORDERED: GLUCOSE 4GM CHEW TABLET PO PRN (08:15)
[2022-07-08] MEDS ORDERED: CARV25TA PO (08:34)
[2022-07-08] MEDS ORDERED: BENZ200C70 PO (08:34)
[2022-07-08] MEDS ORDERED: LISI5TAB11 PO (08:34)
[2022-07-08] MEDS ORDERED: MONT10TA97 PO (08:34)
[2022-07-08] MEDS ORDERED: PENT400T22 PO (08:34)
[2022-07-08] MEDS ORDERED: GLIM2TAB4 PO (08:34)
[2022-07-08] MEDS ORDERED: GABA-282 PO (08:34)
[2022-07-08] MEDS ORDERED: GLIM2TAB29 PO (08:34)
[2022-07-08] MEDS ORDERED: FARX1TAB3 PO (08:34)
[2022-07-08] MEDS ORDERED: PRED20TA PO (08:35)
[2022-07-08] MEDS ORDERED: HOME MED LIST COMPLETE! XX SCH (08:40)
[2022-07-08] MEDS: FAMOTIDINE 20 MG TAB PO SCH (09:07)
[2022-07-08] MEDS: AZITHROMYCIN 250MG TABLET PO SCH ×2 (09:07→10:32)
[2022-07-08] MEDS: ENOXAPARIN 40MG/0.4ML SYRINGE (J1650 PER 10MG) SC SCH (10:31)
[2022-07-08] MEDS: CLOPIDOGREL 75 MG TAB PO SCH (10:32)
[2022-07-08] MEDS: GABAPENTIN 300 MG CAP PO SCH ×4 (10:32→20:21)
[2022-07-08] MEDS: CARVedilol 12.5 MG TAB PO SCH ×2 (10:34→20:20)
[2022-07-08] MEDS: cefTRIAXone SOD 1 GM in D5W MINI-BAG PLUS 50 ML IV SCH (10:35)
[2022-07-08] MEDS: PENTOXIFYLLINE 400MG TAB PO SCH ×3 (10:42→20:21)
[2022-07-08] MEDS: INSULIN LISPRO (NovoLOG) PER UNIT SC SCH ×3 (12:11→20:41)
[2022-07-08 13:23] LABS: ABG BASE EXCESS -5.2 (-2.0-2.0); ABG HCO3 22.1 MEQ/L (22.0-26.0); ABG O2 SATURATION 96.5 % (95.0-99.0); ABG PARTIAL PRESSURE CO2 49.5 mmHg (35.0-45.0); ABG STANDARD HCO3 20.2 MEQ/L (22.0-26.0); ABG TOTAL CO2 23.6 MEQ/L (23.0-31.0); ABG pH (ARTERIAL) 7.268 UNITS (7.350-7.450)
[2022-07-08] MEDS: methylPREDNISolone 40MG 1ML VIAL IV SCH ×2 (13:29→20:21)
[2022-07-08] MEDS: lisinopriL 5 MG TAB PO SCH (20:20)
[2022-07-08] MEDS: MONTELUKAST 10 MG TAB PO SCH (20:21)
[2022-07-08] MEDS: PRAVASTATIN 20 MG TAB PO SCH (20:21)
[2022-07-09] VITALS (10 sets, daily range): BP systolic 119–163; BP diastolic 60–73
[2022-07-09] MEDS: methylPREDNISolone 40MG 1ML VIAL IV SCH ×3 (02:59→13:06)
[2022-07-09 04:55] LABS: HEMATOCRIT 50.2 % (42.0-52.0); MEAN CORPUSCULAR HEMOGLOBIN 30.2 pg (27.0-33.0); MEAN CORPUSCULAR HGB CONC 30.7 g/dl (32.0-36.5); MEAN CORPUSCULAR VOLUME 98.4 fl (80.0-96.0); PLATELET COUNT, AUTOMATED 161 10^3/uL (150-450); WHITE BLOOD COUNT 5.6 10^3/uL (4.0-10.0)
[2022-07-09 05:02] LABS: HEMOGLOBIN 15.4 g/dl (13.5-17.5)
[2022-07-09 05:34] LABS: BLOOD UREA NITROGEN 44 MG/DL (9-23); CALCIUM LEVEL 8.1 MG/DL (8.3-10.6); CARBON DIOXIDE LEVEL 21 MMOL/L (20-31); CHLORIDE LEVEL 106 MMOL/L (98-107); CREATININE FOR GFR 0.86 MG/DL (0.70-1.30); GLOMERULAR FILTRATION RATE > 60.0 (>42); GLUCOSE, FASTING 202 MG/DL (74-106); POTASSIUM SERUM 5.3 MMOL/L (3.5-5.1); SODIUM LEVEL 137 MMOL/L (136-145)
[2022-07-09 05:45] LABS: MAGNESIUM LEVEL 2.1 MG/DL (1.8-2.4)
[2022-07-09] MEDS ORDERED: SOD POLYSTYRENE SULFONATE SUSP 15GM 60ML UD PO ONE (06:00)
[2022-07-09 06:48] LABS: VENOUS BASE EXCESS -1.9 (-2.0-2.0); VENOUS HCO3 24.6 MEQ/L (23.0-27.0); VENOUS O2 SATURATION 97.1 % (60.0-80.0); VENOUS PARTIAL PRESSURE CO2 48.1 mmHg (38.0-50.0); VENOUS PARTIAL PRESSURE O2 92.5 mmHg (30.0-50.0); VENOUS PH 7.327 UNITS (7.330-7.430); VENOUS STANDARD HCO3 22.9 MEQ/L; VENOUS TOTAL CO2 26.1 MEQ/L (24.0-28.0)
[2022-07-09] MEDS: INSULIN LISPRO (NovoLOG) PER UNIT SC SCH ×4 (07:44→20:54)
[2022-07-09] MEDS: FAMOTIDINE 20 MG TAB PO SCH (08:10)
[2022-07-09] MEDS: PENTOXIFYLLINE 400MG TAB PO SCH ×3 (08:10→20:59)
[2022-07-09] MEDS: GABAPENTIN 300 MG CAP PO SCH ×4 (08:10→21:00)
[2022-07-09] MEDS: CARVedilol 12.5 MG TAB PO SCH ×2 (08:11→20:58)
[2022-07-09] MEDS: CLOPIDOGREL 75 MG TAB PO SCH (08:12)
[2022-07-09] MEDS: cefTRIAXone SOD 1 GM in D5W MINI-BAG PLUS 50 ML IV SCH (08:13)
[2022-07-09] MEDS: ENOXAPARIN 40MG/0.4ML SYRINGE (J1650 PER 10MG) SC SCH (08:13)
[2022-07-09] MEDS: ALBUTEROL SULFATE 2.5MG/0.5ML INH NEB SOLN NEB SCH ×2 (08:14→11:12)
[2022-07-09] MEDS ORDERED: FUROSEMIDE 20MG/2ML VIAL IV ONE (13:00)
[2022-07-09] MEDS ORDERED: ALBUTEROL SULFATE 2.5MG/0.5ML INH NEB SOLN NEB PRN (14:00)
[2022-07-09] MEDS: IPRATROPIUM 0.5MG/ALBUTEROL 2.5MG INH SOL UD 3ML (DUONEB) NEB SCH ×3 (15:59→23:14)
[2022-07-09] MEDS: PRAVASTATIN 20 MG TAB PO SCH (20:55)
[2022-07-09] MEDS: lisinopriL 5 MG TAB PO SCH (20:59)
[2022-07-09] MEDS: MONTELUKAST 10 MG TAB PO SCH (20:59)
[2022-07-09] MEDS: LEVEMIR (INSULIN DETEMIR) 1 UNITS/0.01ML SC SCH (21:00)
[2022-07-10] VITALS: BP 116/58
[2022-07-10] MEDS: methylPREDNISolone 40MG 1ML VIAL IV SCH ×2 (02:27→13:05)
[2022-07-10] MEDS: IPRATROPIUM 0.5MG/ALBUTEROL 2.5MG INH SOL UD 3ML (DUONEB) NEB SCH ×5 (03:15→20:00)
[2022-07-10 04:53] LABS: BASO % 0.2 % (0.0-1.0); HEMATOCRIT 48.6 % (42.0-52.0); HEMOGLOBIN 15.2 g/dl (13.5-17.5); LYMPH # 0.8 10^3/uL (1.5-5.0); LYMPH % 12.6 % (24.0-44.0); MEAN CORPUSCULAR HEMOGLOBIN 29.8 pg (27.0-33.0); MEAN CORPUSCULAR HGB CONC 31.3 g/dl (32.0-36.5); MEAN CORPUSCULAR VOLUME 95.3 fl (80.0-96.0); MONO # 0.7 10^3/uL (0.0-0.8); MONO % 11.8 % (2.0-8.0); NEUTROPHILS # 4.7 10^3/uL (1.5-8.5); NEUTROPHILS % 74.9 % (36.0-66.0); PLATELET COUNT, AUTOMATED 177 10^3/uL (150-450); WHITE BLOOD COUNT 6.3 10^3/uL (4.0-10.0)
[2022-07-10 05:14] LABS: BLOOD UREA NITROGEN 37 MG/DL (9-23); CARBON DIOXIDE LEVEL 33 MMOL/L (20-31); CHLORIDE LEVEL 105 MMOL/L (98-107); CREATININE FOR GFR 0.78 MG/DL (0.70-1.30); GLOMERULAR FILTRATION RATE > 60.0 (>42); GLUCOSE, FASTING 279 MG/DL (74-106); MAGNESIUM LEVEL 2.2 MG/DL (1.8-2.4); POTASSIUM SERUM 4.4 MMOL/L (3.5-5.1); SODIUM LEVEL 140 MMOL/L (136-145)
[2022-07-10 05:50] LABS: ABG BASE EXCESS 2.8 (-2.0-2.0); ABG HCO3 31.3 MEQ/L (22.0-26.0); ABG O2 SATURATION 97.9 % (95.0-99.0); ABG PARTIAL PRESSURE O2 105.2 mmHg (75.0-100.0); ABG TOTAL CO2 33.3 MEQ/L (23.0-31.0); ABG pH (ARTERIAL) 7.303 UNITS (7.350-7.450)
[2022-07-10 06:20] LABS: ABG PARTIAL PRESSURE CO2 64.6 mmHg (35.0-45.0)
[2022-07-10] MEDS: INSULIN LISPRO (NovoLOG) PER UNIT SC SCH ×4 (06:55→20:24)
[2022-07-10 08:00] VITALS: BP 139/66
[2022-07-10] MEDS: AZITHROMYCIN 250MG TABLET PO SCH (09:54)
[2022-07-10] MEDS: FAMOTIDINE 20 MG TAB PO SCH (09:54)
[2022-07-10] MEDS: CLOPIDOGREL 75 MG TAB PO SCH (09:54)
[2022-07-10] MEDS: GABAPENTIN 300 MG CAP PO SCH ×4 (09:54→20:28)
[2022-07-10] MEDS: LEVEMIR (INSULIN DETEMIR) 1 UNITS/0.01ML SC SCH ×2 (09:55→20:23)
[2022-07-10] MEDS: CARVedilol 12.5 MG TAB PO SCH ×2 (09:55→20:27)
[2022-07-10] MEDS: PENTOXIFYLLINE 400MG TAB PO SCH ×3 (09:55→20:28)
[2022-07-10] MEDS: ENOXAPARIN 40MG/0.4ML SYRINGE (J1650 PER 10MG) SC SCH (09:56)
[2022-07-10] MEDS: cefTRIAXone SOD 1 GM in D5W MINI-BAG PLUS 50 ML IV SCH (09:56)
[2022-07-10 12:00] VITALS: BP 144/67
[2022-07-10] MEDS: ADVAIR HFA 115/21MCG INHALER INH SCH ×2 (12:43→21:21)
[2022-07-10] MEDS: TIOTROPIUM INHALER/CAPSULE (SPIRIVA) INH SCH (12:43)
[2022-07-10 16:30] VITALS: BP 144/69
[2022-07-10 18:23] LABS: ABG BASE EXCESS 3.8 (-2.0-2.0); ABG HCO3 30.4 MEQ/L (22.0-26.0); ABG O2 SATURATION 90.9 % (95.0-99.0); ABG PARTIAL PRESSURE CO2 52.9 mmHg (35.0-45.0); ABG PARTIAL PRESSURE O2 57.4 mmHg (75.0-100.0); ABG STANDARD HCO3 27.7 MEQ/L (22.0-26.0); ABG pH (ARTERIAL) 7.377 UNITS (7.350-7.450)
[2022-07-10 20:00] VITALS: BP 140/65
[2022-07-10 20:28] VITALS: BP 140/65
[2022-07-10] MEDS: lisinopriL 5 MG TAB PO SCH (20:28)
[2022-07-10] MEDS: MONTELUKAST 10 MG TAB PO SCH (20:28)
[2022-07-10] MEDS: PRAVASTATIN 20 MG TAB PO SCH (20:28)
[2022-07-11] VITALS: BP 135/70
[2022-07-11] MEDS: methylPREDNISolone 40MG 1ML VIAL IV SCH (02:17)
[2022-07-11] MEDS: IPRATROPIUM 0.5MG/ALBUTEROL 2.5MG INH SOL UD 3ML (DUONEB) NEB SCH ×4 (03:15→11:10)
[2022-07-11 04:00] VITALS: BP 150/71
[2022-07-11 04:50] LABS: BASO % 0.1 % (0.0-1.0); HEMATOCRIT 46.5 % (42.0-52.0); HEMOGLOBIN 14.6 g/dl (13.5-17.5); LYMPH % 14.1 % (24.0-44.0); MEAN CORPUSCULAR HEMOGLOBIN 29.7 pg (27.0-33.0); MEAN CORPUSCULAR HGB CONC 31.4 g/dl (32.0-36.5); MEAN CORPUSCULAR VOLUME 94.7 fl (80.0-96.0); MONO # 0.7 10^3/uL (0.0-0.8); MONO % 10.5 % (2.0-8.0); NEUTROPHILS # 5.2 10^3/uL (1.5-8.5); NEUTROPHILS % 74.4 % (36.0-66.0); PLATELET COUNT, AUTOMATED 179 10^3/uL (150-450); RED BLOOD COUNT 4.91 10^6/uL (4.30-6.10)
[2022-07-11 05:32] LABS: ALKALINE PHOSPHATASE 41 U/L (46-116); ALT/SGPT 23 U/L (7.0-40); AST/SGOT 12 U/L (<34); BILIRUBIN,TOTAL 0.5 MG/DL (0.3-1.2); BLOOD UREA NITROGEN 29 MG/DL (9-23); CALCIUM LEVEL 8.4 MG/DL (8.3-10.6); CARBON DIOXIDE LEVEL 33 MMOL/L (20-31); CHLORIDE LEVEL 103 MMOL/L (98-107); CREATININE FOR GFR 0.61 MG/DL (0.70-1.30); GLOMERULAR FILTRATION RATE > 60.0 (>42); GLUCOSE, FASTING 233 MG/DL (74-106); POTASSIUM SERUM 4.3 MMOL/L (3.5-5.1); SODIUM LEVEL 141 MMOL/L (136-145); TOTAL PROTEIN 5.6 G/DL (5.7-8.2)
[2022-07-11] MEDS: INSULIN LISPRO (NovoLOG) PER UNIT SC SCH (06:15)
[2022-07-11 08:00] VITALS: BP 167/79
[2022-07-11] MEDS: ADVAIR HFA 115/21MCG INHALER INH SCH (08:03)
[2022-07-11] MEDS: TIOTROPIUM INHALER/CAPSULE (SPIRIVA) INH SCH (08:03)
[2022-07-11] MEDS: GABAPENTIN 300 MG CAP PO SCH (08:42)
[2022-07-11] MEDS: CARVedilol 12.5 MG TAB PO SCH (08:42)
[2022-07-11] MEDS: ENOXAPARIN 40MG/0.4ML SYRINGE (J1650 PER 10MG) SC SCH (08:43)
[2022-07-11] MEDS: CLOPIDOGREL 75 MG TAB PO SCH (08:43)
[2022-07-11] MEDS: FAMOTIDINE 20 MG TAB PO SCH (08:43)
[2022-07-11] MEDS: PENTOXIFYLLINE 400MG TAB PO SCH (08:43)
[2022-07-11] MEDS: LEVEMIR (INSULIN DETEMIR) 1 UNITS/0.01ML SC SCH (08:44)
[2022-07-11] MEDS ORDERED: cefTRIAXone SOD 1 GM in D5W MINI-BAG PLUS 50 ML IV SCH (09:00)
[2022-07-11] MEDS ORDERED: COMBAER6 INH (09:58)
[2022-07-11] MEDS ORDERED: CEFP200T PO (09:58)
[2022-07-11] MEDS ORDERED: PRED20TA PO ×4 (10:02→11:34)
[2022-07-11] MEDS ORDERED: AZIT-12 PO (11:34)
[2022-07-11] MEDS ORDERED: IPRA0.00 INH (11:34)
[2022-07-11 12:16] VITALS: BP 138/88
== END 2022-07-11 14:37 | disposition home health service (06) | DRG 189 ==
LOC: EDBD 03:42 → M ED 03:42 → M ED INP 08:07 → ENRESERV 08:52 → M ICU 09:14
PROVIDERS: ADMIT Internal Medicine; ATTEND Internal Medicine
DX: J96.01 Acute respiratory failure with hypoxia (principal); J12.3 Human metapneumovirus pneumonia; J44.1 Chronic obstructive pulmonary disease with (acute) exacerbation; J44.0 Chronic obstructive pulmonary disease with (acute) lower respiratory infection; J96.02 Acute respiratory failure with hypercapnia; I10 Essential (primary) hypertension; E78.5 Hyperlipidemia, unspecified; E11.51 Type 2 diabetes mellitus with diabetic peripheral angiopathy without gangrene; F17.210 Nicotine dependence, cigarettes, uncomplicated; I73.9 Peripheral vascular disease, unspecified; I25.10 Atherosclerotic heart disease of native coronary artery without angina pectoris; Z95.5 Presence of coronary angioplasty implant and graft; Z88.5 Allergy status to narcotic agent; Z88.1 Allergy status to other antibiotic agents; Z88.8 Allergy status to other drugs, medicaments and biological substances; Z79.02 Long term (current) use of antithrombotics/antiplatelets; Z79.4 Long term (current) use of insulin; Z79.84 Long term (current) use of oral hypoglycemic drugs; Z79.899 Other long term (current) drug therapy; Z71.6 Tobacco abuse counseling

== ENCOUNTER → 2022-08-05 | Outpatient (CLI) | payer MEDICARE, OTHER ==
[~2022-08-05] MED LIST changes: +AZIT-12 PO; +BENZ200C70 PO; +CARV25TA PO; +CEFP200T PO; +COMBAER6 INH; +FARX1TAB3 PO; +FLUT50SP17 NARES; -FLUTISP NARES; +GABA-282 PO; +GLIM2TAB29 PO; +IPRA0.00 INH; +LISI5TAB11 PO; +MONT10TA97 PO; +PENT400T22 PO
== END ==
LOC: M LAB 15:27
PROVIDERS: ATTEND Surgery Vascular Surgery
DX: I73.9 Peripheral vascular disease, unspecified (principal)

== ENCOUNTER → 2022-08-14 | Outpatient (CLI) | payer MEDICARE, OTHER ==
[~2022-08-14] MED LIST changes: +ISOVUE-370 76% 100ML VIAL As Ordered ONE
== END ==
LOC: M RAD 12:47
PROVIDERS: ATTEND Surgery Vascular Surgery
DX: I73.9 Peripheral vascular disease, unspecified (principal); I70.8 Atherosclerosis of other arteries; Z90.49 Acquired absence of other specified parts of digestive tract; E27.9 Disorder of adrenal gland, unspecified; N28.1 Cyst of kidney, acquired; M47.9 Spondylosis, unspecified
CPT/HCPCS: 75635; Q9967

== ENCOUNTER → 2022-09-26 | Outpatient (CLI) | payer MEDICARE, OTHER ==
[~2022-09-26] MED LIST changes: -ISOVUE-370 76% 100ML VIAL As Ordered ONE
[2022-09-26 16:46] LABS: HEMATOCRIT 53.3 % (42.0-52.0); HEMOGLOBIN 17.1 g/dl (13.5-17.5); MEAN CORPUSCULAR HEMOGLOBIN 30.7 pg (27.0-33.0); MEAN CORPUSCULAR HGB CONC 32.1 g/dl (32.0-36.5); MEAN CORPUSCULAR VOLUME 95.7 fl (80.0-96.0); PLATELET COUNT, AUTOMATED 189 10^3/uL (150-450); RED BLOOD COUNT 5.57 10^6/uL (4.30-6.10); WHITE BLOOD COUNT 8.6 10^3/uL (4.0-10.0)
[2022-09-26 16:48] LABS: BLOOD UREA NITROGEN 18 MG/DL (9-23); CALCIUM LEVEL 8.7 MG/DL (8.3-10.6); CARBON DIOXIDE LEVEL 28 MMOL/L (20-31); CHLORIDE LEVEL 105 MMOL/L (98-107); CREATININE FOR GFR 0.81 MG/DL (0.70-1.30); GLOMERULAR FILTRATION RATE > 60.0 (>42); GLUCOSE, FASTING 211 MG/DL (74-106); POTASSIUM SERUM 4.4 MMOL/L (3.5-5.1); SODIUM LEVEL 140 MMOL/L (136-145)
[2022-09-26 16:50] LABS: INR 0.82; PROTHROMBIN TIME 11.5 SECONDS (12.5-14.5)
[2022-09-26 16:51] LABS: PARTIAL THROMBOPLASTIN TIME 34.4 SECONDS (24.8-34.2)
== END ==
LOC: M LAB 15:42
PROVIDERS: ATTEND Surgery Vascular Surgery
DX: I73.9 Peripheral vascular disease, unspecified (principal)

== ENCOUNTER → 2022-10-14 | Outpatient (CLI) | payer MEDICARE, OTHER | LOC: M RAD 15:43 | PROVIDERS: ATTEND Internal Medicine Pulmonary Disease | DX: J44.9 Chronic obstructive pulmonary disease, unspecified (principal) ==

== ENCOUNTER 2023-01-07 05:34 | Emergency (ER) | payer MEDICARE, OTHER ==
[~2023-01-07] VITALS: Ht 162.6 cm; Wt 65.9 kg
[2023-01-07 05:35] VITALS: TEMP 98
[2023-01-07] MEDS ORDERED: ACET325C5 PO (05:42)
[2023-01-07] MEDS ORDERED: methylPREDNISolone 125MG 2ML VIAL IV ONE (06:25)
[2023-01-07 06:29] LABS: BASO # 0.1 10^3/uL (0.0-0.2); BASO % 0.6 % (0.0-1.0); EOS # 0.2 10^3/uL (0.0-0.5); EOS % 1.6 % (0.0-3.0); HEMATOCRIT 52.7 % (42.0-52.0); HEMOGLOBIN 16.8 g/dl (13.5-17.5); LYMPH # 2.8 10^3/uL (1.5-5.0); LYMPH % 25.3 % (24.0-44.0); MEAN CORPUSCULAR HEMOGLOBIN 30.6 pg (27.0-33.0); MEAN CORPUSCULAR HGB CONC 31.9 g/dl (32.0-36.5); MONO % 9.5 % (2.0-8.0); NEUTROPHILS # 6.8 10^3/uL (1.5-8.5); NEUTROPHILS % 62.4 % (36.0-66.0); RED BLOOD COUNT 5.49 10^6/uL (4.30-6.10)
[2023-01-07 06:52] LABS: ALBUMIN 3.5 G/DL (3.2-5.2); ALKALINE PHOSPHATASE 53 U/L (46-116); ALT/SGPT 16 U/L (7.0-40); AST/SGOT 13 U/L (<34); BILIRUBIN,TOTAL 0.3 MG/DL (0.3-1.2); BLOOD UREA NITROGEN 20 MG/DL (9-23); CALCIUM LEVEL 8.9 MG/DL (8.3-10.6); CARBON DIOXIDE LEVEL 26 MMOL/L (20-31); CHLORIDE LEVEL 106 MMOL/L (98-107); CK-MB VALUE MASS 2.2 NG/ML (<3.6); CREATININE FOR GFR 0.95 MG/DL (0.70-1.30); GLOMERULAR FILTRATION RATE > 60.0 (>42); GLUCOSE, FASTING 162 MG/DL (74-106); MAGNESIUM LEVEL 1.5 MG/DL (1.8-2.4); POTASSIUM SERUM 4.6 MMOL/L (3.5-5.1); SODIUM LEVEL 143 MMOL/L (136-145); TOTAL PROTEIN 6.1 G/DL (5.7-8.2)
[2023-01-07 06:53] LABS: MB/CK RELATIVE INDEX 5.23 (< OR =4)
[2023-01-07] MEDS: IPRATROPIUM 0.5MG/ALBUTEROL 2.5MG INH SOL UD 3ML (DUONEB) NEB PRN ×2 (07:10→08:06)
[2023-01-07] MEDS ORDERED: ALBU8.5H INH (07:48)
[2023-01-07 08:06] VITALS: O2SAT 89
[2023-01-07 08:16] VITALS: BP 144/69
[2023-01-07 08:26] VITALS: O2SAT 89
== END 2023-01-07 08:33 | disposition home or self-care (01) ==
LOC: M ED 05:34
DX: R06.02 Shortness of breath (principal); J44.1 Chronic obstructive pulmonary disease with (acute) exacerbation; E11.9 Type 2 diabetes mellitus without complications; I10 Essential (primary) hypertension; I25.2 Old myocardial infarction; E78.5 Hyperlipidemia, unspecified; F17.200 Nicotine dependence, unspecified, uncomplicated; Z88.1 Allergy status to other antibiotic agents; Z88.5 Allergy status to narcotic agent; Z88.8 Allergy status to other drugs, medicaments and biological substances; Z79.52 Long term (current) use of systemic steroids; Z79.811 Long term (current) use of aromatase inhibitors; Z79.4 Long term (current) use of insulin; Z79.899 Other long term (current) drug therapy
CPT/HCPCS: 71045; 80053; 82550; 82553; 83735; 83880; 84484; 85025; 87486; 87581; 87633; 87798; 93041; 94640; 94760; 96374; 99284; J2930

== ENCOUNTER → 2023-03-30 | Outpatient (CLI) | payer MEDICARE, OTHER ==
[~2023-03-30] MED LIST changes: +ACET325C5 PO; +ALBU8.5H INH; +PROHANCE 279.3MG/ML 15ML VIAL As Ordered ONE
== END ==
LOC: M RAD 12:27
PROVIDERS: ATTEND Family Medicine
DX: D37.6 Neoplasm of uncertain behavior of liver, gallbladder and bile ducts (principal)
CPT/HCPCS: 74183; A9576

== ENCOUNTER 2023-09-21 01:27 | Emergency (ER) | payer MEDICARE, OTHER ==
[~2023-09-21] VITALS: Ht 162.6 cm; Wt 69.3 kg
[~2023-09-21 01:27] MED LIST changes: -FLUT50SP17 NARES; +FLUTISP NARES; -PROHANCE 279.3MG/ML 15ML VIAL As Ordered ONE
[2023-09-21 02:15] LABS: VENOUS BASE EXCESS -2.1 (-2.0-2.0); VENOUS HCO3 24.3 MMOL/L (23.0-27.0); VENOUS O2 SATURATION 58.3 % (60.0-80.0); VENOUS PARTIAL PRESSURE O2 27.9 mmHg (30.0-50.0); VENOUS PH 7.332 UNITS (7.330-7.430); VENOUS STANDARD HCO3 21.6 MMOL/L; VENOUS TOTAL CO2 25.8 MMOL/L (24.0-28.0)
[2023-09-21 02:20] LABS: BASO # 0.1 10^3/uL (0.0-0.2); BASO % 0.3 % (0.0-1.0); EOS # 0.1 10^3/uL (0.0-0.5); EOS % 0.5 % (0.0-3.0); HEMATOCRIT 54.8 % (42.0-52.0); HEMOGLOBIN 18.3 g/dl (13.5-17.5); LYMPH # 1.5 10^3/uL (1.5-5.0); MEAN CORPUSCULAR HEMOGLOBIN 32.3 pg (27.0-33.0); MEAN CORPUSCULAR HGB CONC 33.4 g/dl (32.0-36.5); MEAN CORPUSCULAR VOLUME 96.6 fl (80.0-96.0); MONO # 1.5 10^3/uL (0.0-0.8); NEUTROPHILS # 13.7 10^3/uL (1.5-8.5); NEUTROPHILS % 80.4 % (36.0-66.0); PLATELET COUNT, AUTOMATED 167 10^3/uL (150-450); RED BLOOD COUNT 5.67 10^6/uL (4.30-6.10); WHITE BLOOD COUNT 17.1 10^3/uL (4.0-10.0)
[2023-09-21] MEDS: IPRATROPIUM 0.5MG/ALBUTEROL 2.5MG INH SOL UD 3ML (DUONEB) NEB ONE ×4 (02:22→07:38)
[2023-09-21 02:46] LABS: ALBUMIN 3.8 G/DL (3.2-5.2); ALKALINE PHOSPHATASE 62 U/L (46-116); ALT/SGPT 16 U/L (7.0-40); AST/SGOT 10 U/L (<34); BILIRUBIN,DIRECT 0.1 MG/DL (<0.4); BILIRUBIN,TOTAL 0.4 MG/DL (0.3-1.2); BLOOD UREA NITROGEN 17 MG/DL (9-23); CALCIUM LEVEL 9.2 MG/DL (8.3-10.6); CARBON DIOXIDE LEVEL 27 MMOL/L (20-31); CHLORIDE LEVEL 106 MMOL/L (98-107); CK-MB VALUE MASS 2.6 NG/ML (<3.6); CREATININE FOR GFR 0.88 MG/DL (0.70-1.30); GLOMERULAR FILTRATION RATE > 60.0 (>42); GLUCOSE, FASTING 151 MG/DL (74-106); POTASSIUM SERUM 4.5 MMOL/L (3.5-5.1); SODIUM LEVEL 140 MMOL/L (136-145); TOTAL PROTEIN 6.7 G/DL (5.7-8.2)
[2023-09-21 02:50] LABS: CPK CREATINE PHOSPHOKINASE 59 U/L (46-171)
[2023-09-21] MEDS: methylPREDNISolone 125MG 2ML VIAL IV ONE (04:09)
[2023-09-21 05:55] LABS: CK-MB VALUE MASS 2.2 NG/ML (<3.6)
[2023-09-21 05:58] LABS: MB/CK RELATIVE INDEX 3.38 (< OR =4)
[2023-09-21 06:44] VITALS: O2SAT 91
[2023-09-21 09:01] VITALS: BP 136/66
[2023-09-21 09:16] VITALS: O2SAT 90
[2023-09-21] MEDS ORDERED: PRED10TA2 PO (09:32)
[2023-09-21 09:45] VITALS: TEMP 98
== END 2023-09-21 09:46 | disposition home or self-care (01) ==
LOC: M ED 01:27
DX: J44.1 Chronic obstructive pulmonary disease with (acute) exacerbation (principal); I49.3 Ventricular premature depolarization; I45.19 Other right bundle-branch block; E11.9 Type 2 diabetes mellitus without complications; I25.2 Old myocardial infarction; I10 Essential (primary) hypertension; E78.5 Hyperlipidemia, unspecified; K21.9 Gastro-esophageal reflux disease without esophagitis; F17.200 Nicotine dependence, unspecified, uncomplicated; Z88.1 Allergy status to other antibiotic agents; Z88.5 Allergy status to narcotic agent; Z88.8 Allergy status to other drugs, medicaments and biological substances; Z79.52 Long term (current) use of systemic steroids; Z79.4 Long term (current) use of insulin; Z79.811 Long term (current) use of aromatase inhibitors; Z79.899 Other long term (current) drug therapy
CPT/HCPCS: 71045; 80048; 80076; 82550; 82553; 82803; 83880; 84484; 85025; 87486; 87581; 87633; 87798; 93005; 94640; 94760; 96374; 99285; J2919

== ENCOUNTER → 2023-12-01 | Outpatient (CLI) | payer MEDICARE, OTHER ==
[~2023-12-01] MED LIST changes: -AZEL0.055 NARES; +AZEL1SPR4 NARES; +PRED10TA2 PO
== END ==
LOC: M RAD 14:19
PROVIDERS: ATTEND Internal Medicine Pulmonary Disease
DX: Z12.2 Encounter for screening for malignant neoplasm of respiratory organs (principal); F17.218 Nicotine dependence, cigarettes, with other nicotine-induced disorders

== ENCOUNTER → 2024-04-13 | Outpatient (CLI) | payer MEDICARE, OTHER ==
[~2024-04-13] MED LIST changes: +GABA-1172 PO; -GABA-282 PO
== END ==
LOC: M PLAIMG 15:01
PROVIDERS: ATTEND Internal Medicine Pulmonary Disease
DX: J44.1 Chronic obstructive pulmonary disease with (acute) exacerbation (principal)

== ENCOUNTER → 2024-04-29 | Outpatient (CLI) | payer MEDICARE, OTHER | LOC: M RAD 14:01 | PROVIDERS: ATTEND Physician Assistant | DX: J44.1 Chronic obstructive pulmonary disease with (acute) exacerbation (principal) ==

== ENCOUNTER 2024-05-25 02:41 | Inpatient (IN) | payer MEDICARE, OTHER ==
[~2024-05-25] VITALS: Ht 162.6 cm; Wt 66.9 kg
[2024-05-25] VITALS (7 sets, daily range): BP systolic 112–124; BP diastolic 56–73; TEMP 97.7–98.5; O2SAT 97–99
[2024-05-25] MEDS: ACETAMINOPHEN *IV* 1,000 MG in IV 1 EA IV ONE (03:22)
[2024-05-25] MEDS: IPRATROPIUM 0.5MG/ALBUTEROL 2.5MG INH SOL UD 3ML (DUONEB) NEB STA (03:24)
[2024-05-25 03:29] LABS: ABG BASE EXCESS -2.4 (-2.0-2.0); ABG HCO3 24.1 MMOL/L (22.0-26.0); ABG O2 SATURATION 99.4 % (95.0-99.0); ABG PARTIAL PRESSURE CO2 47.1 mmHg (35.0-45.0); ABG PARTIAL PRESSURE O2 355.7 mmHg (75.0-100.0); ABG STANDARD HCO3 22.6 MMOL/L. (22.0-26.0); ABG TOTAL CO2 25.5 MMOL/L (23.0-31.0); ABG pH (ARTERIAL) 7.326 UNITS (7.350-7.450)
[2024-05-25 03:39] LABS: CK-MB VALUE MASS 2.5 NG/ML (<3.6)
[2024-05-25 03:41] LABS: BASO % 0.1 % (0.0-1.0); EOS # 0.1 10^3/uL (0.0-0.5); EOS % 0.5 % (0.0-3.0); HEMATOCRIT 47.4 % (42.0-52.0); HEMOGLOBIN 15.4 g/dl (13.5-17.5); LYMPH # 0.8 10^3/uL (1.5-5.0); LYMPH % 8.1 % (24.0-44.0); MEAN CORPUSCULAR HEMOGLOBIN 32.4 pg (27.0-33.0); MEAN CORPUSCULAR HGB CONC 32.5 g/dl (32.0-36.5); MEAN CORPUSCULAR VOLUME 99.6 fl (80.0-96.0); MONO # 1.1 10^3/uL (0.0-0.8); MONO % 10.8 % (2.0-8.0); NEUTROPHILS # 8.1 10^3/uL (1.5-8.5); NEUTROPHILS % 79.3 % (36.0-66.0); PLATELET COUNT, AUTOMATED 161 10^3/uL (150-450); RED BLOOD COUNT 4.76 10^6/uL (4.30-6.10); WHITE BLOOD COUNT 10.2 10^3/uL (4.0-10.0)
[2024-05-25 03:41] LABS: ALBUMIN 3.4 G/DL (3.2-5.2); ALKALINE PHOSPHATASE 52 U/L (40-129); ALT/SGPT 20 U/L (7.0-40); AST/SGOT 29 U/L (<34); BILIRUBIN,DIRECT < 0.1 MG/DL (<0.4); BILIRUBIN,TOTAL 0.3 MG/DL (0.3-1.2); BLOOD UREA NITROGEN 27 MG/DL (9-23); CALCIUM LEVEL 8.9 MG/DL (8.3-10.6); CARBON DIOXIDE LEVEL 31 MMOL/L (20-31); CHLORIDE LEVEL 101 MMOL/L (98-107); CREATININE FOR GFR 0.96 MG/DL (0.70-1.30); GLOMERULAR FILTRATION RATE > 60.0 (>42); GLUCOSE, FASTING 88 MG/DL (74-106); SODIUM LEVEL 140 MMOL/L (136-145); TOTAL PROTEIN 6.9 G/DL (5.7-8.2)
[2024-05-25 03:43] LABS: CPK CREATINE PHOSPHOKINASE 77 U/L (46-171); MB/CK RELATIVE INDEX 3.24 (< OR =4)
[2024-05-25] MEDS ORDERED: AZEL1SPR3 NARES (04:03)
[2024-05-25] MEDS ORDERED: SLOWTAB2 PO (04:03)
[2024-05-25] MEDS ORDERED: PRED5TA PO (04:03)
[2024-05-25] MEDS ORDERED: ASPI81TA26 PO (04:03)
[2024-05-25] MEDS ORDERED: TRES1INJ2 SC (04:03)
[2024-05-25] MEDS ORDERED: BUDE0.5S6 INH (04:03)
[2024-05-25] MEDS ORDERED: SILD100T PO (04:03)
[2024-05-25] MEDS ORDERED: MUCI600T31 PO (04:03)
[2024-05-25] MEDS: PIPERACILLIN/TAZOBACTAM SOD 4.5 GM in DEXTROSE 5% (D5W) ADV/MINI-BAG 50 ML IV ONE (04:20)
[2024-05-25] MEDS: NS 0.9% IV ONE (04:20)
[2024-05-25] MEDS: [UNRECOGNIZED DRUG - OTHER] IV ONE (04:20)
[2024-05-25 05:32] LABS: CK-MB VALUE MASS < 1.0 NG/ML (<3.6)
[2024-05-25 05:41] LABS: CPK CREATINE PHOSPHOKINASE 59 U/L (46-171); MB/CK RELATIVE INDEX 1.69 (< OR =4)
[2024-05-25] MEDS: DOXYCYCLINE HYCLATE 100 MG in DEXTROSE 5% (D5W) MINI-BAG PLU 100 ML IV SCH (06:17)
[2024-05-25] MEDS: methylPREDNISolone 125MG 2ML VIAL IV SCH (06:18)
[2024-05-25] MEDS ORDERED: IPRATROPIUM 0.5MG/ALBUTEROL 2.5MG INH SOL UD 3ML (DUONEB) NEB PRN (06:30)
[2024-05-25] MEDS ORDERED: GUAI120017 PO (07:25)
[2024-05-25] MEDS ORDERED: VENTAER INH (07:25)
[2024-05-25] MEDS ORDERED: COMBAER6 INH (07:25)
[2024-05-25] MEDS ORDERED: LORA-930 PO (07:25)
[2024-05-25] MEDS ORDERED: IPRA0.00 INH (07:25)
[2024-05-25] MEDS ORDERED: ACET1TAB55 PO (07:25)
[2024-05-25] MEDS ORDERED: MAGN71.5 PO (07:25)
[2024-05-25] MEDS ORDERED: HOME MED LIST COMPLETE! XX SCH (07:25)
[2024-05-25] MEDS: IPRATROPIUM 0.5MG/ALBUTEROL 2.5MG INH SOL UD 3ML (DUONEB) NEB SCH (08:25)
[2024-05-25] MEDS: PANTOPRAZOLE 40MG VIAL IV SCH (08:40)
[2024-05-25] MEDS: cefTRIAXone SOD 1 GM in DEXTROSE 5% (D5W) ADV/MINI-BAG 50 ML IV SCH (08:40)
[2024-05-25] MEDS: OSELTAMIVIR PHOSPHATE 75 MG CAP (TAMIFLU) PO SCH (08:40)
[2024-05-25 10:24] LABS: ABG BASE EXCESS -2.5 (-2.0-2.0); ABG HCO3 25.4 MMOL/L (22.0-26.0); ABG O2 SATURATION 93.9 % (95.0-99.0); ABG PARTIAL PRESSURE O2 76.3 mmHg (75.0-100.0); ABG STANDARD HCO3 22.3 MMOL/L. (22.0-26.0); ABG TOTAL CO2 27.1 MMOL/L (23.0-31.0); ABG pH (ARTERIAL) 7.274 UNITS (7.350-7.450)
[2024-05-25] MEDS ORDERED: GLUCOSE 4 GM CHEW PO PRN (10:50)
[2024-05-25] MEDS ORDERED: GLUCAGON INJ 1MG VIAL SC PRN (10:50)
[2024-05-25] MEDS ORDERED: DEXTROSE 50% 50ML SYRINGE IV PRN (10:50)
[2024-05-25] MEDS ORDERED: FLUTICASONE PROP 0.05% NASAL SPRAY 16 GM (FLONASE) NARES PRN (10:55)
[2024-05-25 14:52] LABS: ABG BASE EXCESS -3.6 (-2.0-2.0); ABG HCO3 23.5 MMOL/L (22.0-26.0); ABG O2 SATURATION 97.3 % (95.0-99.0); ABG PARTIAL PRESSURE O2 103.3 mmHg (75.0-100.0); ABG STANDARD HCO3 21.5 MMOL/L. (22.0-26.0)
[2024-05-25] MEDS: CARVedilol 12.5 MG TAB PO SCH (14:53)
[2024-05-25] MEDS: PENTOXIFYLLINE 400MG TAB PO SCH (14:54)
[2024-05-25] MEDS: ASPIRIN 81MG ENTERIC TABLET PO SCH (15:10)
[2024-05-25] MEDS: GABAPENTIN 300 MG CAP PO SCH (15:10)
[2024-05-25] MEDS: CLOPIDOGREL 75 MG TAB PO SCH (15:10)
[2024-05-25] MEDS: lisinopriL 5 MG TAB PO SCH (15:10)
[2024-05-25] MEDS: DAPAGLIFLOZIN PROPANEDIOL 10MG TABLET (FARXIGA) PO SCH (15:10)
[2024-05-25] MEDS: ENOXAPARIN 40MG/0.4ML SYRINGE (J1650 PER 10MG) SC SCH (15:11)
[2024-05-25] MEDS: AZELASTINE 137MCG NASAL SPY 30 ML (ASTELIN) SCH (15:19)
[2024-05-25] MEDS: LEVEMIR (INSULIN DETEMIR) 1 UNITS/0.01ML SC SCH (15:21)
[2024-05-25] MEDS: INSULIN LISPRO (NovoLOG) PER UNIT SC SCH ×2 (15:21→20:21)
[2024-05-25 16:44] LABS: HIV 1&2 SCREEN NEGATIVE (NEGATIVE)
[2024-05-25 16:51] LABS: HEPATITIS C VIRUS ABY INDEX < 0.02 INDEX (<0.8)
[2024-05-25] MEDS: PRAVASTATIN 20 MG TAB PO SCH (21:35)
[2024-05-25] MEDS: MONTELUKAST 10 MG TAB PO SCH (21:36)
[2024-05-26] VITALS (15 sets, daily range): BP systolic 115–136; BP diastolic 56–78; TEMP 96.9–98.1; O2SAT 92–100
[2024-05-26 04:59] LABS: HEMATOCRIT 45.8 % (42.0-52.0); HEMOGLOBIN 14.5 g/dl (13.5-17.5); MEAN CORPUSCULAR HEMOGLOBIN 31.6 pg (27.0-33.0); MEAN CORPUSCULAR HGB CONC 31.7 g/dl (32.0-36.5); MEAN CORPUSCULAR VOLUME 99.8 fl (80.0-96.0); PLATELET COUNT, AUTOMATED 141 10^3/uL (150-450); RED BLOOD COUNT 4.59 10^6/uL (4.30-6.10); WHITE BLOOD COUNT 5.6 10^3/uL (4.0-10.0)
[2024-05-26 05:15] LABS: ABG BASE EXCESS -2.1 (-2.0-2.0); ABG HCO3 24.5 MMOL/L (22.0-26.0); ABG O2 SATURATION 97.8 % (95.0-99.0); ABG PARTIAL PRESSURE O2 122.7 mmHg (75.0-100.0); ABG STANDARD HCO3 22.7 MMOL/L. (22.0-26.0); ABG pH (ARTERIAL) 7.317 UNITS (7.350-7.450)
[2024-05-26 05:27] LABS: BLOOD UREA NITROGEN 26 MG/DL (9-23); CARBON DIOXIDE LEVEL 27 MMOL/L (20-31); CHLORIDE LEVEL 107 MMOL/L (98-107); CREATININE FOR GFR 0.69 MG/DL (0.70-1.30); GLOMERULAR FILTRATION RATE > 60.0 (>42); GLUCOSE, FASTING 121 MG/DL (74-106); MAGNESIUM LEVEL 1.8 MG/DL (1.8-2.4); POTASSIUM SERUM 4.5 MMOL/L (3.5-5.1); SODIUM LEVEL 142 MMOL/L (136-145)
[2024-05-26 11:38] LABS: PROCALCITONIN 0.24 ng/ml
[2024-05-26] MEDS: ADVAIR HFA 230/21MCG INHALER INH SCH (11:40)
[2024-05-26] MEDS: TIOTROPIUM INHALER/CAPSULE (SPIRIVA) INH SCH (11:40)
[2024-05-26] MEDS: IPRATROPIUM 0.5MG/ALBUTEROL 2.5MG INH SOL UD 3ML (DUONEB) NEB SCH (20:06)
[2024-05-26] MEDS: DOXYCYCLINE HYCLATE 100MG TABLET PO SCH (20:46)
[2024-05-27] VITALS (10 sets, daily range): BP systolic 116–147; BP diastolic 58–70; TEMP 96.9–98; O2SAT 86–97
[2024-05-27 04:41] LABS: HEMATOCRIT 45.4 % (42.0-52.0); HEMOGLOBIN 14.7 g/dl (13.5-17.5); MEAN CORPUSCULAR HEMOGLOBIN 31.9 pg (27.0-33.0); MEAN CORPUSCULAR HGB CONC 32.4 g/dl (32.0-36.5); MEAN CORPUSCULAR VOLUME 98.5 fl (80.0-96.0); PLATELET COUNT, AUTOMATED 160 10^3/uL (150-450); RED BLOOD COUNT 4.61 10^6/uL (4.30-6.10); WHITE BLOOD COUNT 7.1 10^3/uL (4.0-10.0)
[2024-05-27 05:08] LABS: BLOOD UREA NITROGEN 26 MG/DL (9-23); CALCIUM LEVEL 7.8 MG/DL (8.3-10.6); CARBON DIOXIDE LEVEL 29 MMOL/L (20-31); CHLORIDE LEVEL 104 MMOL/L (98-107); GLOMERULAR FILTRATION RATE > 60.0 (>42); GLUCOSE, FASTING 184 MG/DL (74-106); MAGNESIUM LEVEL 1.8 MG/DL (1.8-2.4); POTASSIUM SERUM 4.5 MMOL/L (3.5-5.1); SODIUM LEVEL 141 MMOL/L (136-145)
[2024-05-27] MEDS: predniSONE 20 MG TAB PO SCH (08:20)
[2024-05-27] MEDS: PANTOPRAZOLE 40MG TAB (PROTONIX) PO SCH (08:20)
[2024-05-27] MEDS: CEFDINIR 300 MG CAP (OMNICEF) PO SCH (08:20)
[2024-05-27] MEDS: FUROSEMIDE 40MG/4ML VIAL IV ONE (10:27)
[2024-05-27 11:45] LABS: ABG BASE EXCESS 5.1 (-2.0-2.0); ABG HCO3 30.8 MMOL/L (22.0-26.0); ABG O2 SATURATION 91.2 % (95.0-99.0); ABG PARTIAL PRESSURE CO2 49.1 mmHg (35.0-45.0); ABG PARTIAL PRESSURE O2 59.1 mmHg (75.0-100.0); ABG STANDARD HCO3 28.9 MMOL/L. (22.0-26.0); ABG TOTAL CO2 32.4 MMOL/L (23.0-31.0); ABG pH (ARTERIAL) 7.416 UNITS (7.350-7.450)
[2024-05-27] MEDS: IPRATROPIUM 0.5MG/ALBUTEROL 2.5MG INH SOL UD 3ML (DUONEB) NEB SCH (11:56)
[2024-05-27 15:49] LABS: ALKALINE PHOSPHATASE 42 U/L (40-129); ALT/SGPT 24 U/L (7.0-40); AST/SGOT 30 U/L (<34); BILIRUBIN,TOTAL 0.2 MG/DL (0.3-1.2); BLOOD UREA NITROGEN 29 MG/DL (9-23); CALCIUM LEVEL 8.4 MG/DL (8.3-10.6); CARBON DIOXIDE LEVEL 33 MMOL/L (20-31); CHLORIDE LEVEL 98 MMOL/L (98-107); CREATININE FOR GFR 0.91 MG/DL (0.70-1.30); GLOMERULAR FILTRATION RATE > 60.0 (>42); GLUCOSE, FASTING 191 MG/DL (74-106); MAGNESIUM LEVEL 1.6 MG/DL (1.8-2.4); POTASSIUM SERUM 4.4 MMOL/L (3.5-5.1); SODIUM LEVEL 142 MMOL/L (136-145); TOTAL PROTEIN 6.1 G/DL (5.7-8.2)
[2024-05-27] MEDS: MAG SULF 1GM/100ML (MAG RUN) 1 GM in IV 1 EA IV SCH (17:15)
[2024-05-28] VITALS: BP 151/65; TEMP 97.2; O2SAT 95
[2024-05-28 04:00] VITALS: BP 142/63; TEMP 98.5; O2SAT 98
[2024-05-28 05:36] LABS: HEMATOCRIT 45.9 % (42.0-52.0); HEMOGLOBIN 15.1 g/dl (13.5-17.5); MEAN CORPUSCULAR HEMOGLOBIN 32.3 pg (27.0-33.0); MEAN CORPUSCULAR HGB CONC 32.9 g/dl (32.0-36.5); MEAN CORPUSCULAR VOLUME 98.1 fl (80.0-96.0); PLATELET COUNT, AUTOMATED 143 10^3/uL (150-450); RED BLOOD COUNT 4.68 10^6/uL (4.30-6.10); WHITE BLOOD COUNT 4.9 10^3/uL (4.0-10.0)
[2024-05-28 07:43] VITALS: O2SAT 100
[2024-05-28 08:00] VITALS: BP 147/70; TEMP 97.6; O2SAT 100
[2024-05-28 08:15] VITALS: O2SAT 96
[2024-05-28 08:43] VITALS: BP 147/70
[2024-05-28] MEDS ORDERED: CEFD300CAP PO (11:26)
[2024-05-28] MEDS ORDERED: OSEL75CA2 PO (11:26)
[2024-05-28] MEDS ORDERED: PRED20TA PO (11:26)
== END 2024-05-28 13:15 | disposition home health service (06) | DRG 189 ==
LOC: M ED 02:41 → M ED INP 02:42 → M ICU 11:56 → OBSVTOIN 05-26 08:25
PROVIDERS: ADMIT Student in an Organized Health Care Education/Training Program; ATTEND Student in an Organized Health Care Education/Training Program
DX: J96.01 Acute respiratory failure with hypoxia (principal); J10.00 Influenza due to other identified influenza virus with unspecified type of pneumonia; J44.1 Chronic obstructive pulmonary disease with (acute) exacerbation; I25.10 Atherosclerotic heart disease of native coronary artery without angina pectoris; I10 Essential (primary) hypertension; E86.0 Dehydration; E11.51 Type 2 diabetes mellitus with diabetic peripheral angiopathy without gangrene; I73.9 Peripheral vascular disease, unspecified; E78.5 Hyperlipidemia, unspecified; J96.02 Acute respiratory failure with hypercapnia; I95.9 Hypotension, unspecified; F17.210 Nicotine dependence, cigarettes, uncomplicated; Z71.6 Tobacco abuse counseling; Z79.82 Long term (current) use of aspirin; Z79.84 Long term (current) use of oral hypoglycemic drugs; Z79.52 Long term (current) use of systemic steroids; Z79.899 Other long term (current) drug therapy; Z88.1 Allergy status to other antibiotic agents; Z88.5 Allergy status to narcotic agent; Z88.8 Allergy status to other drugs, medicaments and biological substances; Z95.5 Presence of coronary angioplasty implant and graft

== ENCOUNTER 2024-06-01 10:50 | Inpatient (IN) | payer MEDICARE, OTHER ==
[~2024-06-01] VITALS: Ht 162.6 cm; Wt 66.8 kg
[2024-06-01] MEDS: TIOTROPIUM INHALER/CAPSULE (SPIRIVA) INH SCH (09:00)
[2024-06-01] MEDS: AZITHROMYCIN 250MG TABLET PO SCH (09:00)
[2024-06-01] MEDS: ENOXAPARIN 40MG/0.4ML SYRINGE (J1650 PER 10MG) SC SCH (09:00)
[2024-06-01] MEDS: LEVEMIR (INSULIN DETEMIR) 1 UNITS/0.01ML SC SCH (09:00)
[~2024-06-01 10:50] MED LIST changes: +ACET1TAB55 PO; +ASPI81TA26 PO; +AZEL1SPR3 NARES; +BUDE0.5S6 INH; +CEFD300CAP PO; +GUAI120017 PO; +LORA-930 PO; +MAGN71.5 PO; +OSEL75CA2 PO; +PRED5TA PO; +SILD100T PO; +SLOWTAB2 PO; +TRES1INJ2 SC; +VENTAER INH
[2024-06-01 11:30] LABS: VENOUS BASE EXCESS 2.6 (-2.0-2.0); VENOUS HCO3 31.5 MMOL/L (23.0-27.0); VENOUS PARTIAL PRESSURE CO2 64.1 mmHg (38.0-50.0); VENOUS PARTIAL PRESSURE O2 32.4 mmHg (30.0-50.0); VENOUS PH 7.309 UNITS (7.330-7.430); VENOUS STANDARD HCO3 25.7 MMOL/L; VENOUS TOTAL CO2 33.4 MMOL/L (24.0-28.0)
[2024-06-01] MEDS: IPRATROPIUM 0.5MG/ALBUTEROL 2.5MG INH SOL UD 3ML (DUONEB) NEB SCH ×2 (11:31→14:32)
[2024-06-01 11:45] LABS: BASO # 0.1 10^3/uL (0.0-0.2); BASO % 0.5 % (0.0-1.0); EOS % 0.1 % (0.0-3.0); HEMATOCRIT 55.5 % (42.0-52.0); HEMOGLOBIN 18.2 g/dl (13.5-17.5); LYMPH % 7.6 % (24.0-44.0); MEAN CORPUSCULAR HEMOGLOBIN 32.2 pg (27.0-33.0); MEAN CORPUSCULAR HGB CONC 32.8 g/dl (32.0-36.5); MEAN CORPUSCULAR VOLUME 98.1 fl (80.0-96.0); MONO # 0.2 10^3/uL (0.0-0.8); MONO % 1.8 % (2.0-8.0); NEUTROPHILS # 11.3 10^3/uL (1.5-8.5); NEUTROPHILS % 85.5 % (36.0-66.0); PLATELET COUNT, AUTOMATED 171 10^3/uL (150-450); RED BLOOD COUNT 5.66 10^6/uL (4.30-6.10); WHITE BLOOD COUNT 13.2 10^3/uL (4.0-10.0)
[2024-06-01 12:07] LABS: ALBUMIN 3.3 G/DL (3.2-5.2); ALKALINE PHOSPHATASE 45 U/L (40-129); ALT/SGPT 23 U/L (7.0-40); AST/SGOT 19 U/L (<34); BILIRUBIN,DIRECT 0.2 MG/DL (<0.4); BILIRUBIN,TOTAL 0.6 MG/DL (0.3-1.2); BLOOD UREA NITROGEN 22 MG/DL (9-23); CALCIUM LEVEL 9.2 MG/DL (8.3-10.6); CARBON DIOXIDE LEVEL 35 MMOL/L (20-31); CHLORIDE LEVEL 99 MMOL/L (98-107); CREATININE FOR GFR 0.67 MG/DL (0.70-1.30); GLOMERULAR FILTRATION RATE > 60.0 (>42); GLUCOSE, FASTING 217 MG/DL (74-106); POTASSIUM SERUM 5.3 MMOL/L (3.5-5.1); SODIUM LEVEL 139 MMOL/L (136-145); TOTAL PROTEIN 6.7 G/DL (5.7-8.2)
[2024-06-01 12:59] LABS: ABG BASE EXCESS 3.1 (-2.0-2.0); ABG HCO3 29.9 MMOL/L (22.0-26.0); ABG O2 SATURATION 88.5 % (95.0-99.0); ABG PARTIAL PRESSURE CO2 52.7 mmHg (35.0-45.0); ABG STANDARD HCO3 26.9 MMOL/L. (22.0-26.0); ABG TOTAL CO2 31.5 MMOL/L (23.0-31.0); ABG pH (ARTERIAL) 7.371 UNITS (7.350-7.450)
[2024-06-01] MEDS ORDERED: HOME MED LIST COMPLETE! XX SCH (13:00)
[2024-06-01] MEDS: methylPREDNISolone 125MG 2ML VIAL IV ONE (13:11)
[2024-06-01 13:40] LABS: PROCALCITONIN 0.11 ng/ml
[2024-06-01] MEDS ORDERED: GLUCOSE 4 GM CHEW PO PRN (13:55)
[2024-06-01] MEDS ORDERED: DEXTROSE 50% 50ML SYRINGE IV PRN (13:55)
[2024-06-01] MEDS ORDERED: FLUTICASONE PROP 0.05% NASAL SPRAY 16 GM (FLONASE) NARES PRN (13:55)
[2024-06-01] MEDS ORDERED: GLUCAGON INJ 1MG VIAL SC PRN (13:55)
[2024-06-01 15:11] LABS: INR 0.92; PARTIAL THROMBOPLASTIN TIME 31.9 SECONDS (24.8-34.2); PROTHROMBIN TIME 12.7 SECONDS (12.5-14.5)
[2024-06-01 15:21] VITALS: BP 173/93; TEMP 96.8; O2SAT 91
[2024-06-01] MEDS: FUROSEMIDE 20MG/2ML VIAL IV ONE (15:59)
[2024-06-01] MEDS: GABAPENTIN 300 MG CAP PO SCH (16:01)
[2024-06-01] MEDS: PENTOXIFYLLINE 400MG TAB PO SCH (17:15)
[2024-06-01] MEDS: INSULIN LISPRO (NovoLOG) PER UNIT SC SCH ×2 (17:16→21:08)
[2024-06-01] MEDS: ADVAIR HFA 115/21MCG INHALER INH SCH (19:23)
[2024-06-01] MEDS: BUDESONIDE 0.5 MG/2 ML INHALATION SUSPENSION INH SCH (19:23)
[2024-06-01 20:27] VITALS: BP 127/71; TEMP 97.2; O2SAT 91
[2024-06-01] MEDS: methylPREDNISolone 125MG 2ML VIAL IV SCH (21:08)
[2024-06-01] MEDS: guaiFENesin ER TABLET 600 MG TAB PO SCH (21:09)
[2024-06-01] MEDS: MONTELUKAST 10 MG TAB PO SCH (21:09)
[2024-06-01] MEDS: CARVedilol 12.5 MG TAB PO SCH (21:09)
[2024-06-01] MEDS: OSELTAMIVIR PHOSPHATE 75 MG CAP PO SCH (21:09)
[2024-06-01] MEDS: CEFDINIR 300 MG CAP (OMNICEF) PO SCH (21:10)
[2024-06-01] MEDS: PRAVASTATIN 20 MG TAB PO SCH (21:10)
[2024-06-02 04:00] VITALS: BP 159/81; TEMP 97.2; O2SAT 91
[2024-06-02 07:03] LABS: ALBUMIN 2.9 G/DL (3.2-5.2); ALKALINE PHOSPHATASE 36 U/L (40-129); ALT/SGPT 16 U/L (7.0-40); AST/SGOT < 8 U/L (<34); BILIRUBIN,TOTAL 0.6 MG/DL (0.3-1.2); BLOOD UREA NITROGEN 28 MG/DL (9-23); CALCIUM LEVEL 9.2 MG/DL (8.3-10.6); CARBON DIOXIDE LEVEL 36 MMOL/L (20-31); CHLORIDE LEVEL 101 MMOL/L (98-107); CREATININE FOR GFR 0.77 MG/DL (0.70-1.30); GLOMERULAR FILTRATION RATE > 60.0 (>42); GLUCOSE, FASTING 197 MG/DL (74-106); SODIUM LEVEL 143 MMOL/L (136-145); TOTAL PROTEIN 5.9 G/DL (5.7-8.2)
[2024-06-02 07:26] LABS: HEMATOCRIT 51.6 % (42.0-52.0); HEMOGLOBIN 17.2 g/dl (13.5-17.5); MEAN CORPUSCULAR HEMOGLOBIN 32.2 pg (27.0-33.0); MEAN CORPUSCULAR HGB CONC 33.3 g/dl (32.0-36.5); MEAN CORPUSCULAR VOLUME 96.6 fl (80.0-96.0); PLATELET COUNT, AUTOMATED 205 10^3/uL (150-450); RED BLOOD COUNT 5.34 10^6/uL (4.30-6.10); WHITE BLOOD COUNT 7.7 10^3/uL (4.0-10.0)
[2024-06-02 08:21] VITALS: BP 139/78
[2024-06-02] MEDS: lisinopriL 5 MG TAB PO SCH (08:21)
[2024-06-02] MEDS: LORATADINE 10 MG TAB PO SCH (08:22)
[2024-06-02] MEDS: AZELASTINE 137MCG NASAL SPY 30 ML (ASTELIN) SCH (08:22)
[2024-06-02] MEDS: CLOPIDOGREL 75 MG TAB PO SCH (08:22)
[2024-06-02] MEDS: ASPIRIN 81MG ENTERIC TABLET PO SCH (08:22)
[2024-06-02] MEDS: DAPAGLIFLOZIN PROPANEDIOL 10MG TABLET (FARXIGA) PO SCH (08:22)
[2024-06-02] MEDS: LEVEMIR (INSULIN DETEMIR) 1 UNITS/0.01ML SC SCH (08:23)
[2024-06-02] MEDS: NICOTINE 14 MG/24 HR TRANSDERMAL TD SCH (08:23)
[2024-06-02 12:30] VITALS: BP 131/61; TEMP 97; O2SAT 91
[2024-06-02] MEDS: FUROSEMIDE 40 MG TAB PO SCH (15:40)
[2024-06-02] MEDS: LEVEMIR (INSULIN DETEMIR) 1 UNITS/0.01ML SC ONE (15:40)
[2024-06-02 16:37] VITALS: O2SAT 89
[2024-06-02] MEDS: INSULIN LISPRO (NovoLOG) PER UNIT SC SCH (17:48)
[2024-06-02 20:31] VITALS: BP 116/62; TEMP 97.3; O2SAT 89
[2024-06-02] MEDS: methylPREDNISolone 125MG 2ML VIAL IV SCH (21:26)
[2024-06-03 04:16] VITALS: BP 126/69; TEMP 97; O2SAT 93
[2024-06-03 06:00] LABS: HEMOGLOBIN 16.9 g/dl (13.5-17.5); MEAN CORPUSCULAR HEMOGLOBIN 32.1 pg (27.0-33.0); MEAN CORPUSCULAR HGB CONC 33.1 g/dl (32.0-36.5); MEAN CORPUSCULAR VOLUME 96.8 fl (80.0-96.0); PLATELET COUNT, AUTOMATED 191 10^3/uL (150-450); RED BLOOD COUNT 5.27 10^6/uL (4.30-6.10); WHITE BLOOD COUNT 14.1 10^3/uL (4.0-10.0)
[2024-06-03 06:29] LABS: ALBUMIN 3.1 G/DL (3.2-5.2); ALKALINE PHOSPHATASE 41 U/L (40-129); ALT/SGPT 14 U/L (7.0-40); AST/SGOT 9 U/L (<34); BILIRUBIN,TOTAL 0.6 MG/DL (0.3-1.2); BLOOD UREA NITROGEN 34 MG/DL (9-23); CALCIUM LEVEL 8.8 MG/DL (8.3-10.6); CARBON DIOXIDE LEVEL 38 MMOL/L (20-31); CHLORIDE LEVEL 96 MMOL/L (98-107); CREATININE FOR GFR 0.85 MG/DL (0.70-1.30); GLOMERULAR FILTRATION RATE > 60.0 (>42); GLUCOSE, FASTING 325 MG/DL (74-106); POTASSIUM SERUM 4.1 MMOL/L (3.5-5.1); SODIUM LEVEL 142 MMOL/L (136-145); TOTAL PROTEIN 6.2 G/DL (5.7-8.2)
[2024-06-03 07:11] VITALS: O2SAT 92
[2024-06-03 08:00] VITALS: BP 134/70; TEMP 97.2; O2SAT 90
[2024-06-03] MEDS: LEVEMIR (INSULIN DETEMIR) 1 UNITS/0.01ML SC SCH (08:19)
[2024-06-03] MEDS ORDERED: LEVEMIR (INSULIN DETEMIR) 1 UNITS/0.01ML SC SCH ×2 (09:00→21:00)
[2024-06-03 12:00] VITALS: BP 133/70; TEMP 97; O2SAT 93
[2024-06-03] MEDS ORDERED: ENTER DRUG NAME HERE (PATIENT'S OWN MED) SL PRN (16:40)
[2024-06-03] MEDS: INSULIN LISPRO (NovoLOG) PER UNIT SC SCH ×2 (17:29→21:30)
[2024-06-03 18:00] VITALS: O2SAT 92; O2SAT 94
[2024-06-03 20:20] VITALS: BP 124/55; TEMP 97.1; O2SAT 91
[2024-06-03 23:54] LABS: MAGNESIUM LEVEL 1.8 MG/DL (1.8-2.4); POTASSIUM SERUM 3.5 MMOL/L (3.5-5.1)
[2024-06-04] VITALS (8 sets, daily range): BP systolic 123–137; BP diastolic 56–78; TEMP 97–97.5; O2SAT 87–95
[2024-06-04 05:42] LABS: HEMATOCRIT 49.1 % (42.0-52.0); HEMOGLOBIN 16.1 g/dl (13.5-17.5); MEAN CORPUSCULAR HGB CONC 32.8 g/dl (32.0-36.5); MEAN CORPUSCULAR VOLUME 97.6 fl (80.0-96.0); PLATELET COUNT, AUTOMATED 215 10^3/uL (150-450); RED BLOOD COUNT 5.03 10^6/uL (4.30-6.10)
[2024-06-04 06:09] LABS: ALBUMIN 2.8 G/DL (3.2-5.2); ALKALINE PHOSPHATASE 35 U/L (40-129); ALT/SGPT 13 U/L (7.0-40); AST/SGOT < 8 U/L (<34); BILIRUBIN,TOTAL 0.7 MG/DL (0.3-1.2); BLOOD UREA NITROGEN 37 MG/DL (9-23); CALCIUM LEVEL 8.9 MG/DL (8.3-10.6); CARBON DIOXIDE LEVEL 37 MMOL/L (20-31); CHLORIDE LEVEL 98 MMOL/L (98-107); CREATININE FOR GFR 0.65 MG/DL (0.70-1.30); GLOMERULAR FILTRATION RATE > 60.0 (>42); GLUCOSE, FASTING 242 MG/DL (74-106); POTASSIUM SERUM 3.4 MMOL/L (3.5-5.1); SODIUM LEVEL 141 MMOL/L (136-145); TOTAL PROTEIN 5.7 G/DL (5.7-8.2)
[2024-06-04] MEDS: INSULIN LISPRO (NovoLOG) PER UNIT SC SCH ×2 (08:11→08:12)
[2024-06-04] MEDS: POTASSIUM CHLORIDE 10MEQ SR TABLET PO ONE (11:54)
[2024-06-04] MEDS: methylPREDNISolone 125MG 2ML VIAL IV SCH (11:55)
[2024-06-04] MEDS: NICOTINE 2 MG PO PRN (11:56)
[2024-06-05] VITALS (17 sets, daily range): BP systolic 124–149; BP diastolic 57–92; TEMP 97.2–97.5; O2SAT 83–95
[2024-06-05 06:15] LABS: HEMATOCRIT 51.8 % (42.0-52.0); HEMOGLOBIN 16.8 g/dl (13.5-17.5); MEAN CORPUSCULAR HEMOGLOBIN 31.5 pg (27.0-33.0); MEAN CORPUSCULAR HGB CONC 32.4 g/dl (32.0-36.5); MEAN CORPUSCULAR VOLUME 97.2 fl (80.0-96.0); PLATELET COUNT, AUTOMATED 172 10^3/uL (150-450); RED BLOOD COUNT 5.33 10^6/uL (4.30-6.10); WHITE BLOOD COUNT 16.4 10^3/uL (4.0-10.0)
[2024-06-05 06:40] LABS: ALBUMIN 2.9 G/DL (3.2-5.2); ALKALINE PHOSPHATASE 37 U/L (40-129); ALT/SGPT 19 U/L (7.0-40); AST/SGOT 10 U/L (<34); BILIRUBIN,TOTAL 0.8 MG/DL (0.3-1.2); BLOOD UREA NITROGEN 38 MG/DL (9-23); CALCIUM LEVEL 8.3 MG/DL (8.3-10.6); CARBON DIOXIDE LEVEL 38 MMOL/L (20-31); CHLORIDE LEVEL 95 MMOL/L (98-107); CREATININE FOR GFR 0.79 MG/DL (0.70-1.30); GLOMERULAR FILTRATION RATE > 60.0 (>42); GLUCOSE, FASTING 219 MG/DL (74-106); SODIUM LEVEL 140 MMOL/L (136-145); TOTAL PROTEIN 5.7 G/DL (5.7-8.2)
[2024-06-06] VITALS (19 sets, daily range): BP systolic 117–131; BP diastolic 58–72; TEMP 97.3; O2SAT 84–93
[2024-06-06 05:48] LABS: HEMATOCRIT 51.1 % (42.0-52.0); HEMOGLOBIN 16.6 g/dl (13.5-17.5); MEAN CORPUSCULAR HEMOGLOBIN 31.7 pg (27.0-33.0); MEAN CORPUSCULAR HGB CONC 32.5 g/dl (32.0-36.5); MEAN CORPUSCULAR VOLUME 97.7 fl (80.0-96.0); PLATELET COUNT, AUTOMATED 190 10^3/uL (150-450); RED BLOOD COUNT 5.23 10^6/uL (4.30-6.10); WHITE BLOOD COUNT 17.9 10^3/uL (4.0-10.0)
[2024-06-06 06:19] LABS: ALBUMIN 2.8 G/DL (3.2-5.2); ALKALINE PHOSPHATASE 42 U/L (40-129); ALT/SGPT 32 U/L (7.0-40); AST/SGOT 12 U/L (<34); BILIRUBIN,TOTAL 0.8 MG/DL (0.3-1.2); BLOOD UREA NITROGEN 38 MG/DL (9-23); CALCIUM LEVEL 8.6 MG/DL (8.3-10.6); CARBON DIOXIDE LEVEL 37 MMOL/L (20-31); CHLORIDE LEVEL 97 MMOL/L (98-107); CREATININE FOR GFR 0.72 MG/DL (0.70-1.30); GLOMERULAR FILTRATION RATE > 60.0 (>42); GLUCOSE, FASTING 266 MG/DL (74-106); POTASSIUM SERUM 3.8 MMOL/L (3.5-5.1); SODIUM LEVEL 139 MMOL/L (136-145); TOTAL PROTEIN 5.5 G/DL (5.7-8.2)
[2024-06-06] MEDS: FUROSEMIDE 20MG/2ML VIAL IV ONE (09:55)
[2024-06-06] MEDS: methylPREDNISolone 125MG 2ML VIAL IV SCH (17:02)
[2024-06-06] MEDS: INSULIN LISPRO (NovoLOG) PER UNIT SC SCH (17:03)
[2024-06-06] MEDS: LEVEMIR (INSULIN DETEMIR) 1 UNITS/0.01ML SC SCH (21:16)
[2024-06-07 04:37] VITALS: BP 119/62; TEMP 97.2; O2SAT 90
[2024-06-07 06:59] LABS: ALKALINE PHOSPHATASE 50 U/L (40-129); ALT/SGPT 35 U/L (7.0-40); AST/SGOT 16 U/L (<34); BLOOD UREA NITROGEN 39 MG/DL (9-23); CALCIUM LEVEL 9.4 MG/DL (8.3-10.6); CARBON DIOXIDE LEVEL > 40.0 MMOL/L (20-31); CHLORIDE LEVEL 94 MMOL/L (98-107); GLOMERULAR FILTRATION RATE > 60.0 (>42); GLUCOSE, FASTING 205 MG/DL (74-106); POTASSIUM SERUM 3.9 MMOL/L (3.5-5.1); SODIUM LEVEL 142 MMOL/L (136-145)
[2024-06-07 07:20] LABS: HEMATOCRIT 56.1 % (42.0-52.0); MEAN CORPUSCULAR HEMOGLOBIN 31.7 pg (27.0-33.0); MEAN CORPUSCULAR HGB CONC 32.1 g/dl (32.0-36.5); MEAN CORPUSCULAR VOLUME 98.8 fl (80.0-96.0); PLATELET COUNT, AUTOMATED 197 10^3/uL (150-450); RED BLOOD COUNT 5.68 10^6/uL (4.30-6.10); WHITE BLOOD COUNT 27.7 10^3/uL (4.0-10.0)
[2024-06-07 07:30] VITALS: O2SAT 93
[2024-06-07] MEDS: SYMBICORT 160/4.5MCG INHALER 6GM INH SCH (08:35)
[2024-06-07] MEDS: BUDESONIDE 0.5 MG/2 ML INHALATION SUSPENSION NEB SCH ×2 (08:35→11:10)
[2024-06-07 08:49] VITALS: O2SAT 78
[2024-06-07 08:50] VITALS: O2SAT 82
[2024-06-07 08:52] VITALS: O2SAT 88
[2024-06-07] MEDS: IPRATROPIUM 0.5MG/ALBUTEROL 2.5MG INH SOL UD 3ML (DUONEB) NEB PRN (11:10)
[2024-06-07 12:00] VITALS: BP 129/66; TEMP 97.5; O2SAT 93
[2024-06-07] MEDS: ADVAIR HFA 230/21MCG INHALER INH SCH (18:50)
[2024-06-07] MEDS ORDERED: SYMBICORT 160/4.5MCG INHALER 6GM INH SCH (20:00)
[2024-06-08 01:18] VITALS: BP 126/63; TEMP 97.8; O2SAT 92
[2024-06-08] MEDS: SENOKOT S TAB PO SCH (09:00)
[2024-06-08] MEDS: FUROSEMIDE 40MG/4ML VIAL IV SCH (09:13)
[2024-06-08] MEDS ORDERED: MOM 30ML SUSPENSION UDC PO PRN (09:55)
[2024-06-08 12:00] VITALS: BP 116/74; TEMP 97; O2SAT 95
[2024-06-08 20:00] VITALS: BP 131/66; TEMP 97.3; O2SAT 96
[2024-06-08] MEDS: LEVEMIR (INSULIN DETEMIR) 1 UNITS/0.01ML SC SCH (20:43)
[2024-06-09 04:00] VITALS: BP 121/65; TEMP 97.2; O2SAT 95
[2024-06-09 08:28] LABS: BASO # 0.1 10^3/uL (0.0-0.2); BASO % 0.2 % (0.0-1.0); HEMOGLOBIN 16.8 g/dl (13.5-17.5); LYMPH # 0.6 10^3/uL (1.5-5.0); LYMPH % 2.5 % (24.0-44.0); MEAN CORPUSCULAR HEMOGLOBIN 31.1 pg (27.0-33.0); MEAN CORPUSCULAR HGB CONC 31.1 g/dl (32.0-36.5); MEAN CORPUSCULAR VOLUME 99.8 fl (80.0-96.0); MONO # 0.8 10^3/uL (0.0-0.8); MONO % 3.6 % (2.0-8.0); NEUTROPHILS # 20.9 10^3/uL (1.5-8.5); NEUTROPHILS % 91.4 % (36.0-66.0); PLATELET COUNT, AUTOMATED 198 10^3/uL (150-450); RED BLOOD COUNT 5.41 10^6/uL (4.30-6.10); WHITE BLOOD COUNT 22.9 10^3/uL (4.0-10.0)
[2024-06-09 09:34] LABS: BLOOD UREA NITROGEN 35 MG/DL (9-23); CALCIUM LEVEL 8.9 MG/DL (8.3-10.6); CARBON DIOXIDE LEVEL > 40.0 MMOL/L (20-31); CHLORIDE LEVEL 96 MMOL/L (98-107); CREATININE FOR GFR 0.67 MG/DL (0.70-1.30); GLOMERULAR FILTRATION RATE > 60.0 (>42); GLUCOSE, FASTING 195 MG/DL (74-106); POTASSIUM SERUM 4.3 MMOL/L (3.5-5.1); SODIUM LEVEL 141 MMOL/L (136-145)
[2024-06-09 12:00] VITALS: BP 146/77; TEMP 97.2; O2SAT 98
[2024-06-09 13:30] VITALS: O2SAT 94
[2024-06-09] MEDS: methylPREDNISolone 40MG 1ML VIAL IV SCH (16:48)
[2024-06-09 20:00] VITALS: BP 121/61; TEMP 97.5; O2SAT 89
[2024-06-10 06:05] LABS: BASO # 0.1 10^3/uL (0.0-0.2); BASO % 0.3 % (0.0-1.0); EOS % 0.1 % (0.0-3.0); HEMATOCRIT 47.8 % (42.0-52.0); HEMOGLOBIN 15.3 g/dl (13.5-17.5); LYMPH # 0.7 10^3/uL (1.5-5.0); LYMPH % 3.6 % (24.0-44.0); MEAN CORPUSCULAR HEMOGLOBIN 31.4 pg (27.0-33.0); MONO % 5.1 % (2.0-8.0); NEUTROPHILS # 16.7 10^3/uL (1.5-8.5); NEUTROPHILS % 86.4 % (36.0-66.0); PLATELET COUNT, AUTOMATED 171 10^3/uL (150-450); RED BLOOD COUNT 4.88 10^6/uL (4.30-6.10); WHITE BLOOD COUNT 19.3 10^3/uL (4.0-10.0)
[2024-06-10 06:25] LABS: BLOOD UREA NITROGEN 33 MG/DL (9-23); CALCIUM LEVEL 8.6 MG/DL (8.3-10.6); CARBON DIOXIDE LEVEL 40 MMOL/L (20-31); CHLORIDE LEVEL 98 MMOL/L (98-107); CREATININE FOR GFR 0.64 MG/DL (0.70-1.30); GLOMERULAR FILTRATION RATE > 60.0 (>42); GLUCOSE, FASTING 224 MG/DL (74-106); SODIUM LEVEL 142 MMOL/L (136-145)
[2024-06-10] MEDS ORDERED: SENN-52 PO (09:26)
[2024-06-10] MEDS ORDERED: PRED10TA2 PO (09:26)
[2024-06-10] MEDS: ACETAMINOPHEN 325 MG TAB PO PRN (11:04)
== END 2024-06-10 14:43 | disposition home health service (06) | DRG 189 ==
LOC: EDBD 10:50 → M ED 10:50 → M ED INP 13:52 → M MSPAV 15:15
PROVIDERS: ADMIT Internal Medicine; ATTEND Internal Medicine Nephrology
PROC: B246ZZZ Ultrasonography of Right and Left Heart (ICD-10-PCS; principal; 2024-06-01)
DX: J96.01 Acute respiratory failure with hypoxia (principal); I50.23 Acute on chronic systolic (congestive) heart failure; J44.1 Chronic obstructive pulmonary disease with (acute) exacerbation; E87.29 Other acidosis; E87.5 Hyperkalemia; F17.210 Nicotine dependence, cigarettes, uncomplicated; J96.02 Acute respiratory failure with hypercapnia; J10.1 Influenza due to other identified influenza virus with other respiratory manifestations; F17.290 Nicotine dependence, other tobacco product, uncomplicated; I25.10 Atherosclerotic heart disease of native coronary artery without angina pectoris; I25.2 Old myocardial infarction; E11.51 Type 2 diabetes mellitus with diabetic peripheral angiopathy without gangrene; I11.0 Hypertensive heart disease with heart failure; I73.9 Peripheral vascular disease, unspecified; E78.5 Hyperlipidemia, unspecified; E11.42 Type 2 diabetes mellitus with diabetic polyneuropathy; Z95.828 Presence of other vascular implants and grafts; Z95.5 Presence of coronary angioplasty implant and graft; Z90.49 Acquired absence of other specified parts of digestive tract; Z79.82 Long term (current) use of aspirin; Z79.84 Long term (current) use of oral hypoglycemic drugs; Z79.4 Long term (current) use of insulin; Z79.52 Long term (current) use of systemic steroids; Z79.899 Other long term (current) drug therapy; Z88.1 Allergy status to other antibiotic agents; Z88.5 Allergy status to narcotic agent; Z88.8 Allergy status to other drugs, medicaments and biological substances; Z71.6 Tobacco abuse counseling

== ENCOUNTER 2024-06-13 04:37 | Inpatient (IN) | payer MEDICARE, OTHER ==
[~2024-06-13] VITALS: Ht 162.6 cm; Wt 65.6 kg
[~2024-06-13 04:37] MED LIST changes: +SENN-52 PO
[2024-06-13 06:03] LABS: BASO # 0.1 10^3/uL (0.0-0.2); BASO % 0.2 % (0.0-1.0); EOS % 0.2 % (0.0-3.0); HEMATOCRIT 48.4 % (42.0-52.0); HEMOGLOBIN 15.4 g/dl (13.5-17.5); LYMPH # 1.1 10^3/uL (1.5-5.0); LYMPH % 5.4 % (24.0-44.0); MEAN CORPUSCULAR HEMOGLOBIN 32.2 pg (27.0-33.0); MEAN CORPUSCULAR HGB CONC 31.8 g/dl (32.0-36.5); MEAN CORPUSCULAR VOLUME 101.3 fl (80.0-96.0); MONO # 0.8 10^3/uL (0.0-0.8); MONO % 4.1 % (2.0-8.0); NEUTROPHILS % 87.9 % (36.0-66.0); RED BLOOD COUNT 4.78 10^6/uL (4.30-6.10); WHITE BLOOD COUNT 20.5 10^3/uL (4.0-10.0)
[2024-06-13 06:05] LABS: VENOUS BASE EXCESS 8.2 (-2.0-2.0); VENOUS O2 SATURATION 71.1 % (60.0-80.0); VENOUS PARTIAL PRESSURE CO2 78.2 mmHg (38.0-50.0); VENOUS PARTIAL PRESSURE O2 39.7 mmHg (30.0-50.0); VENOUS PH 7.304 UNITS (7.330-7.430); VENOUS STANDARD HCO3 31.2 MMOL/L; VENOUS TOTAL CO2 40.4 MMOL/L (24.0-28.0)
[2024-06-13 06:30] LABS: CK-MB VALUE MASS 2.6 NG/ML (<3.6)
[2024-06-13 06:36] LABS: ALBUMIN 2.4 G/DL (3.2-5.2); ALKALINE PHOSPHATASE 57 U/L (40-129); ALT/SGPT 53 U/L (7.0-40); AST/SGOT 22 U/L (<34); BILIRUBIN,DIRECT 0.2 MG/DL (<0.4); BILIRUBIN,TOTAL 0.6 MG/DL (0.3-1.2); BLOOD UREA NITROGEN 23 MG/DL (9-23); CALCIUM LEVEL 8.8 MG/DL (8.3-10.6); CARBON DIOXIDE LEVEL 36 MMOL/L (20-31); CHLORIDE LEVEL 96 MMOL/L (98-107); CPK CREATINE PHOSPHOKINASE 54 U/L (46-171); CREATININE FOR GFR 0.57 MG/DL (0.70-1.30); GLOMERULAR FILTRATION RATE > 60.0 (>42); GLUCOSE, FASTING 135 MG/DL (74-106); MB/CK RELATIVE INDEX 4.81 (< OR =4); POTASSIUM SERUM 4.9 MMOL/L (3.5-5.1); SODIUM LEVEL 140 MMOL/L (136-145)
[2024-06-13 08:43] LABS: INR 0.86; PARTIAL THROMBOPLASTIN TIME 29.2 SECONDS (24.8-34.2); PROTHROMBIN TIME 12.1 SECONDS (12.5-14.5)
[2024-06-13 08:51] LABS: CK-MB VALUE MASS 1.6 NG/ML (<3.6)
[2024-06-13 08:58] LABS: MB/CK RELATIVE INDEX 4.21 (< OR =4)
[2024-06-13] MEDS: guaiFENesin ER TABLET 600 MG TAB PO SCH (09:00)
[2024-06-13] MEDS: lisinopriL 5 MG TAB PO SCH (09:00)
[2024-06-13] MEDS ORDERED: SENN-50 PO (09:06)
[2024-06-13] MEDS ORDERED: HOME MED LIST COMPLETE! XX SCH (09:10)
[2024-06-13] MEDS ORDERED: VANCOMYCIN 1000MG/20ML VIAL IP ONE (09:35)
[2024-06-13] MEDS: ACETAMINOPHEN *IV* 1,000 MG in IV 1 EA IV ONE (09:55)
[2024-06-13] MEDS: CEFEPIME HCL 1 GM in DEXTROSE 5% (D5W) ADV/MINI-BAG 50 ML IV ONE (10:12)
[2024-06-13] MEDS: VANCOMYCIN HCL 1,000 MG, VIAL MATE ADAPTER 1 EACH in NS 250 ML IV ONE (11:20)
[2024-06-13] MEDS ORDERED: MOM 30ML SUSPENSION UDC PO PRN (11:35)
[2024-06-13] MEDS ORDERED: ALBUTEROL SULFATE 2.5MG/0.5ML INH NEB SOLN NEB PRN (11:45)
[2024-06-13] MEDS ORDERED: methylPREDNISolone 40MG 1ML VIAL IV SCH (11:45)
[2024-06-13 12:00] LABS: ABG BASE EXCESS 6.5 (-2.0-2.0); ABG HCO3 31.7 MMOL/L (22.0-26.0); ABG PARTIAL PRESSURE CO2 47.3 mmHg (35.0-45.0); ABG PARTIAL PRESSURE O2 80.2 mmHg (75.0-100.0); ABG STANDARD HCO3 30.4 MMOL/L. (22.0-26.0); ABG TOTAL CO2 33.1 MMOL/L (23.0-31.0); ABG pH (ARTERIAL) 7.444 UNITS (7.350-7.450)
[2024-06-13 12:12] LABS: PROCALCITONIN 0.2 ng/ml
[2024-06-13] MEDS: methylPREDNISolone 40MG 1ML VIAL IV SCH (13:54)
[2024-06-13] MEDS: PIPERACILLIN/TAZOBACTAM SOD 4.5 GM in DEXTROSE 5% (D5W) ADV/MINI-BAG 50 ML IV SCH (14:32)
[2024-06-13 15:33] VITALS: O2SAT 95
[2024-06-13] MEDS: IPRATROPIUM 0.5MG/ALBUTEROL 2.5MG INH SOL UD 3ML (DUONEB) NEB SCH (15:38)
[2024-06-13] MEDS: ACETAMINOPHEN 325 MG TAB PO PRN (17:09)
[2024-06-13] MEDS: VANCOMYCIN HCL 750 MG, VIAL MATE ADAPTER 1 EACH in NS 250 ML IV SCH (18:00)
[2024-06-13] MEDS: BUDESONIDE 0.5 MG/2 ML INHALATION SUSPENSION INH SCH (19:21)
[2024-06-13] MEDS: GLYCOPYRROLATE INJ 0.2 MG/ML 2 ML VIAL NEB SCH (19:21)
[2024-06-13] MEDS: FORMOTEROL FUMARATE 20 MCG/2 ML INHALATION SOLUTION (PERFOROMIST) INH SCH (19:21)
[2024-06-13] MEDS ORDERED: LORATADINE 10 MG TAB PO PRN (20:05)
[2024-06-13] MEDS ORDERED: DEXTROSE 50% 50ML SYRINGE IV PRN (20:10)
[2024-06-13] MEDS ORDERED: GLUCAGON INJ 1MG VIAL SC PRN (20:10)
[2024-06-13] MEDS ORDERED: GLUCOSE 4 GM CHEW PO PRN (20:10)
[2024-06-13] MEDS: DOCUSATE SODIUM 100MG CAPSULE PO SCH (20:10)
[2024-06-13] MEDS: INSULIN LISPRO (NovoLOG) PER UNIT SC SCH (20:36)
[2024-06-13] MEDS: PENTOXIFYLLINE 400MG TAB PO SCH (20:44)
[2024-06-13] MEDS: CLOPIDOGREL 75 MG TAB PO SCH (20:44)
[2024-06-13] MEDS: CARVedilol 12.5 MG TAB PO SCH (20:45)
[2024-06-13] MEDS: GABAPENTIN 300 MG CAP PO SCH (20:45)
[2024-06-13] MEDS: PRAVASTATIN 20 MG TAB PO SCH (20:45)
[2024-06-13 21:00] VITALS: BP 161/72; TEMP 97.8; O2SAT 93
[2024-06-13 22:20] VITALS: O2SAT 96
[2024-06-13 23:00] VITALS: O2SAT 96
[2024-06-13 23:24] VITALS: BP 103/62; TEMP 97; O2SAT 97
[2024-06-14] VITALS (21 sets, daily range): BP systolic 97–123; BP diastolic 53–65; TEMP 97–97.5; O2SAT 89–99
[2024-06-14 06:38] LABS: BASO % 0.2 % (0.0-1.0); HEMATOCRIT 42.3 % (42.0-52.0); LYMPH # 0.5 10^3/uL (1.5-5.0); LYMPH % 2.8 % (24.0-44.0); MEAN CORPUSCULAR HEMOGLOBIN 31.4 pg (27.0-33.0); MEAN CORPUSCULAR HGB CONC 31.4 g/dl (32.0-36.5); MONO # 0.2 10^3/uL (0.0-0.8); MONO % 1.1 % (2.0-8.0); NEUTROPHILS # 17.3 10^3/uL (1.5-8.5); NEUTROPHILS % 94.5 % (36.0-66.0); PLATELET COUNT, AUTOMATED 122 10^3/uL (150-450); RED BLOOD COUNT 4.23 10^6/uL (4.30-6.10); WHITE BLOOD COUNT 18.3 10^3/uL (4.0-10.0)
[2024-06-14 07:01] LABS: HEMOGLOBIN 13.3 g/dl (13.5-17.5)
[2024-06-14 07:14] LABS: ALBUMIN 1.9 G/DL (3.2-5.2); ALKALINE PHOSPHATASE 53 U/L (40-129); ALT/SGPT 33 U/L (7.0-40); AST/SGOT 12 U/L (<34); BILIRUBIN,TOTAL 0.7 MG/DL (0.3-1.2); BLOOD UREA NITROGEN 21 MG/DL (9-23); CARBON DIOXIDE LEVEL 32 MMOL/L (20-31); CHLORIDE LEVEL 99 MMOL/L (98-107); CREATININE FOR GFR 0.56 MG/DL (0.70-1.30); GLOMERULAR FILTRATION RATE > 60.0 (>42); GLUCOSE, FASTING 89 MG/DL (74-106); MAGNESIUM LEVEL 1.8 MG/DL (1.8-2.4); POTASSIUM SERUM 4.5 MMOL/L (3.5-5.1); SODIUM LEVEL 140 MMOL/L (136-145); TOTAL PROTEIN 5.2 G/DL (5.7-8.2)
[2024-06-14] MEDS: INSULIN LISPRO (NovoLOG) PER UNIT SC SCH (07:30)
[2024-06-14] MEDS: ASPIRIN 81MG ENTERIC TABLET PO SCH (09:58)
[2024-06-14] MEDS: MONTELUKAST 10 MG TAB PO SCH (10:04)
[2024-06-14] MEDS: LACTOBACILLUS ACIDOPHILUS CAP (BACID) PO SCH (10:04)
[2024-06-14] MEDS: ENOXAPARIN 40MG/0.4ML SYRINGE (J1650 PER 10MG) SC SCH (10:05)
[2024-06-14] MEDS: DOXYCYCLINE HYCLATE 100MG TABLET PO SCH (10:06)
[2024-06-14 12:34] LABS: PROCALCITONIN 0.3 ng/ml
[2024-06-14 12:36] LABS: C REACTIVE PROTEIN QUANTITATIV 26.46 MG/DL (<1.0)
[2024-06-14] MEDS: NICOTINE 21MG/24HR 1 EA TRANSDERMAL TD SCH (21:45)
[2024-06-15 04:30] VITALS: BP 134/66; TEMP 98.2; O2SAT 96
[2024-06-15 08:00] VITALS: O2SAT 97
[2024-06-15 08:09] LABS: BASO % 0.1 % (0.0-1.0); EOS % 0.1 % (0.0-3.0); HEMATOCRIT 42.6 % (42.0-52.0); HEMOGLOBIN 13.5 g/dl (13.5-17.5); LYMPH # 0.3 10^3/uL (1.5-5.0); LYMPH % 2.1 % (24.0-44.0); MEAN CORPUSCULAR HEMOGLOBIN 31.8 pg (27.0-33.0); MEAN CORPUSCULAR HGB CONC 31.7 g/dl (32.0-36.5); MEAN CORPUSCULAR VOLUME 100.2 fl (80.0-96.0); MONO # 0.3 10^3/uL (0.0-0.8); NEUTROPHILS # 14.5 10^3/uL (1.5-8.5); NEUTROPHILS % 94.2 % (36.0-66.0); PLATELET COUNT, AUTOMATED 186 10^3/uL (150-450); RED BLOOD COUNT 4.25 10^6/uL (4.30-6.10); WHITE BLOOD COUNT 15.4 10^3/uL (4.0-10.0)
[2024-06-15 08:14] LABS: ERYTHROCYTE SEDIMENTATION RATE 82 mm/hr (0-20)
[2024-06-15 08:35] LABS: C REACTIVE PROTEIN QUANTITATIV 16.59 MG/DL (<1.0)
[2024-06-15 08:38] VITALS: BP 116/58; TEMP 97.2; O2SAT 94
[2024-06-15 08:41] LABS: PROCALCITONIN 0.28 ng/ml
[2024-06-15 09:00] VITALS: O2SAT 93
[2024-06-15 10:00] VITALS: O2SAT 96
[2024-06-15 11:57] VITALS: BP 110/56; TEMP 98; O2SAT 94
[2024-06-15] MEDS ORDERED: NICOTINE 21MG/24HR 1 EA TRANSDERMAL TD SCH (12:45)
[2024-06-15] MEDS: LEVEMIR (INSULIN DETEMIR) 1 UNITS/0.01ML SC ONE (13:24)
[2024-06-15] MEDS: INSULIN LISPRO (NovoLOG) PER UNIT SC STA (13:24)
[2024-06-15 13:33] LABS: HEMOGLOBIN A1c 9.1 % (4.0-6.0)
[2024-06-15] MEDS: NICOTINE 21MG/24HR 1 EA TRANSDERMAL TD SCH (13:52)
[2024-06-15] MEDS ORDERED: CEFT1INJ5 IV (14:37)
[2024-06-15] MEDS ORDERED: PRED20TA PO (14:37)
[2024-06-15] MEDS ORDERED: DOXY-440 PO (14:37)
[2024-06-15] MEDS ORDERED: RISATAB3 PO (14:37)
[2024-06-15] MEDS ORDERED: NICO21PAT TD (14:42)
[2024-06-15] MEDS ORDERED: BUDE0.5S6 INH (14:42)
[2024-06-15] MEDS ORDERED: INSUHUMDS SC (14:42)
[2024-06-15] MEDS ORDERED: GLYC5INJ NEB (14:42)
[2024-06-15] MEDS ORDERED: PERF20NE2 INH (14:42)
[2024-06-15] MEDS ORDERED: Insulin Detemir SC (14:42)
[2024-06-15] MEDS ORDERED: INSULIN LISPRO (NovoLOG) PER UNIT SC SCH (17:30)
[2024-06-16] MEDS ORDERED: LEVEMIR (INSULIN DETEMIR) 1 UNITS/0.01ML SC SCH (09:00)
[2024-06-17 19:46] LABS: URINE STREP PNEUMONIAE ANTIGEN DETECTED (NOT DETECT)
== END 2024-06-15 15:56 | DRG 193 ==
LOC: M ED 04:37 → EDBD 04:37 → M ED INP 11:25 → M PCU 20:59
PROVIDERS: ADMIT Student in an Organized Health Care Education/Training Program; ATTEND Student in an Organized Health Care Education/Training Program
DX: J18.9 Pneumonia, unspecified organism (principal); J96.21 Acute and chronic respiratory failure with hypoxia; J96.22 Acute and chronic respiratory failure with hypercapnia; E87.29 Other acidosis; J44.1 Chronic obstructive pulmonary disease with (acute) exacerbation; J44.0 Chronic obstructive pulmonary disease with (acute) lower respiratory infection; G72.81 Critical illness myopathy; R78.81 Bacteremia; I25.10 Atherosclerotic heart disease of native coronary artery without angina pectoris; I25.2 Old myocardial infarction; E11.51 Type 2 diabetes mellitus with diabetic peripheral angiopathy without gangrene; I10 Essential (primary) hypertension; E78.5 Hyperlipidemia, unspecified; M25.511 Pain in right shoulder; F17.210 Nicotine dependence, cigarettes, uncomplicated; E11.40 Type 2 diabetes mellitus with diabetic neuropathy, unspecified; R53.1 Weakness; R29.6 Repeated falls; E11.65 Type 2 diabetes mellitus with hyperglycemia; Z66 Do not resuscitate; M25.552 Pain in left hip; Z79.82 Long term (current) use of aspirin; Z79.4 Long term (current) use of insulin; Z79.02 Long term (current) use of antithrombotics/antiplatelets; Z79.899 Other long term (current) drug therapy; Z88.1 Allergy status to other antibiotic agents; Z88.5 Allergy status to narcotic agent; Z88.8 Allergy status to other drugs, medicaments and biological substances; Z95.5 Presence of coronary angioplasty implant and graft; Z90.49 Acquired absence of other specified parts of digestive tract; Z87.891 Personal history of nicotine dependence

== ENCOUNTER 2024-06-15 15:21 | Inpatient (IN) | payer MEDICARE, OTHER ==
[~2024-06-15] VITALS: Ht 162.6 cm; Wt 65.6 kg
[2024-06-15 14:05] VITALS: BP 148/74; TEMP 97; O2SAT 99
[~2024-06-15 15:21] MED LIST changes: +CEFT1INJ5 IV; +DOXY-440 PO; +GLYC5INJ NEB; +INSUHUMDS SC; +Insulin Detemir SC; +NICO21PAT TD; +PERF20NE2 INH; +RISATAB3 PO; +SENN-50 PO
[2024-06-15 16:05] VITALS: BP 148/74; TEMP 97; O2SAT 99
[2024-06-15] MEDS ORDERED: GLUCAGON INJ 1MG VIAL SC PRN (16:55)
[2024-06-15] MEDS ORDERED: DEXTROSE 50% 50ML SYRINGE IV PRN (16:55)
[2024-06-15] MEDS ORDERED: LORATADINE 10 MG TAB PO PRN (16:55)
[2024-06-15] MEDS ORDERED: ACETAMINOPHEN 500 MG TAB PO PRN (16:55)
[2024-06-15] MEDS ORDERED: GLUCOSE 4 GM CHEW PO PRN (16:55)
[2024-06-15] MEDS ORDERED: MOM 30ML SUSPENSION UDC PO PRN (17:15)
[2024-06-15] MEDS ORDERED: BISACODYL 10MG SUPP PR PRN (17:15)
[2024-06-15] MEDS ORDERED: BISACODYL 5MG TAB PO PRN (17:15)
[2024-06-15] MEDS ORDERED: MAALOX 30 ML SUSP *UDC PO PRN (17:15)
[2024-06-15] MEDS ORDERED: SIMETHICONE 80MG CHEW TAB PO PRN (17:15)
[2024-06-15] MEDS ORDERED: ONDANSETRON 4MG ORAL DISINTEGRATING TAB PO PRN (17:20)
[2024-06-15] MEDS: GABAPENTIN 300 MG CAP PO SCH (18:34)
[2024-06-15] MEDS: LACTOBACILLUS ACIDOPHILUS CAP (BACID) PO SCH (18:34)
[2024-06-15] MEDS: INSULIN LISPRO (NovoLOG) PER UNIT SC SCH ×2 (18:35→20:51)
[2024-06-15 20:00] VITALS: BP 152/70; TEMP 97.3; O2SAT 93
[2024-06-15] MEDS: GLYCOPYRROLATE INJ 0.2 MG/ML 2 ML VIAL NEB SCH (20:28)
[2024-06-15] MEDS: BUDESONIDE 0.5 MG/2 ML INHALATION SUSPENSION INH SCH (20:29)
[2024-06-15] MEDS: TIOTROPIUM INHALER/CAPSULE (SPIRIVA) INH SCH (20:30)
[2024-06-15] MEDS: FORMOTEROL FUMARATE 20 MCG/2 ML INHALATION SOLUTION (PERFOROMIST) INH SCH (20:31)
[2024-06-15] MEDS: predniSONE 20 MG TAB PO SCH (20:48)
[2024-06-15] MEDS: PENTOXIFYLLINE 400MG TAB PO SCH (20:49)
[2024-06-15] MEDS: CARVedilol 12.5 MG TAB PO SCH (20:49)
[2024-06-15] MEDS: MAGNESIUM OXIDE 400MG TAB (MAG-OX) PO SCH (20:50)
[2024-06-15] MEDS: DOXYCYCLINE HYCLATE 100MG TABLET PO SCH (20:50)
[2024-06-15] MEDS: PRAVASTATIN 20 MG TAB PO SCH (20:50)
[2024-06-15] MEDS ORDERED: INSULIN LISPRO (NovoLOG) PER UNIT SC SCH (21:00)
[2024-06-16 04:00] VITALS: BP 149/63; TEMP 97.6; O2SAT 100
[2024-06-16] MEDS ORDERED: cefTRIAXone SOD 1GM VIAL IV SCH (09:00)
[2024-06-16 10:11] LABS: ALBUMIN 2.2 G/DL (3.2-5.2); ALKALINE PHOSPHATASE 54 U/L (40-129); ALT/SGPT 48 U/L (7.0-40); AST/SGOT 45 U/L (<34); BILIRUBIN,TOTAL 0.5 MG/DL (0.3-1.2); BLOOD UREA NITROGEN 24 MG/DL (9-23); CALCIUM LEVEL 8.3 MG/DL (8.3-10.6); CARBON DIOXIDE LEVEL 32 MMOL/L (20-31); CHLORIDE LEVEL 98 MMOL/L (98-107); CREATININE FOR GFR 0.67 MG/DL (0.70-1.30); GLOMERULAR FILTRATION RATE > 60.0 (>42); GLUCOSE, FASTING 398 MG/DL (74-106); POTASSIUM SERUM 5.1 MMOL/L (3.5-5.1); SODIUM LEVEL 137 MMOL/L (136-145); TOTAL PROTEIN 6.1 G/DL (5.7-8.2)
[2024-06-16] MEDS: DOCUSATE SODIUM 100MG CAPSULE PO SCH (10:27)
[2024-06-16] MEDS: DAPAGLIFLOZIN PROPANEDIOL 10MG TABLET (FARXIGA) PO SCH (10:27)
[2024-06-16] MEDS: CLOPIDOGREL 75 MG TAB PO SCH (10:27)
[2024-06-16] MEDS: AZELASTINE 137MCG NASAL SPY 30 ML (ASTELIN) SCH (10:29)
[2024-06-16] MEDS: NICOTINE 21MG/24HR 1 EA TRANSDERMAL TD SCH (10:29)
[2024-06-16] MEDS: cefTRIAXone SOD 2 GM in DEXTROSE 5% (D5W) ADV/MINI-BAG 50 ML IV SCH (10:30)
[2024-06-16] MEDS: ENOXAPARIN 40MG/0.4ML SYRINGE (J1650 PER 10MG) SC SCH (10:30)
[2024-06-16] MEDS: LEVEMIR (INSULIN DETEMIR) 1 UNITS/0.01ML SC SCH (10:31)
[2024-06-16] MEDS: ASPIRIN 81MG ENTERIC TABLET PO SCH (10:32)
[2024-06-16] MEDS: MONTELUKAST 10 MG TAB PO SCH (10:32)
[2024-06-16 12:00] VITALS: BP 123/6; TEMP 97; O2SAT 96
[2024-06-16 13:12] LABS: BASO % 0.1 % (0.0-1.0); EOS % 0.1 % (0.0-3.0); HEMATOCRIT 39.8 % (42.0-52.0); HEMOGLOBIN 13.1 g/dl (13.5-17.5); LYMPH # 0.4 10^3/uL (1.5-5.0); LYMPH % 3.1 % (24.0-44.0); MEAN CORPUSCULAR HEMOGLOBIN 32.3 pg (27.0-33.0); MEAN CORPUSCULAR HGB CONC 32.9 g/dl (32.0-36.5); MONO # 0.5 10^3/uL (0.0-0.8); MONO % 3.4 % (2.0-8.0); NEUTROPHILS # 12.8 10^3/uL (1.5-8.5); NEUTROPHILS % 92.4 % (36.0-66.0); PLATELET COUNT, AUTOMATED 168 10^3/uL (150-450); RED BLOOD COUNT 4.06 10^6/uL (4.30-6.10); WHITE BLOOD COUNT 13.8 10^3/uL (4.0-10.0)
[2024-06-16 20:00] VITALS: BP 164/74; TEMP 96.6; O2SAT 94
[2024-06-17 04:00] VITALS: BP 139/70; TEMP 96.9; O2SAT 98
[2024-06-17] MEDS: FLUTICASONE PROP 0.05% NASAL SPRAY 16 GM (FLONASE) NARES PRN (07:45)
[2024-06-17] MEDS: LEVEMIR (INSULIN DETEMIR) 1 UNITS/0.01ML SC ONE (07:49)
[2024-06-17] MEDS: INSULIN LISPRO (NovoLOG) PER UNIT SC SCH (07:50)
[2024-06-17] MEDS ORDERED: NICOTINE PO PRN (10:40)
[2024-06-17 12:14] VITALS: BP 150/70; TEMP 96.9; O2SAT 94
[2024-06-17 12:24] LABS: HEMOGLOBIN A1c 9.3 % (4.0-6.0)
[2024-06-17 12:31] LABS: BLOOD UREA NITROGEN 28 MG/DL (9-23); CALCIUM LEVEL 8.3 MG/DL (8.3-10.6); CARBON DIOXIDE LEVEL 32 MMOL/L (20-31); CHLORIDE LEVEL 102 MMOL/L (98-107); CREATININE FOR GFR 0.69 MG/DL (0.70-1.30); GLOMERULAR FILTRATION RATE > 60.0 (>42); GLUCOSE, FASTING 297 MG/DL (74-106); POTASSIUM SERUM 4.7 MMOL/L (3.5-5.1); SODIUM LEVEL 141 MMOL/L (136-145)
[2024-06-17 19:53] VITALS: BP 148/69; TEMP 97.1; O2SAT 94
[2024-06-17] MEDS: IPRATROPIUM 0.5MG/ALBUTEROL 2.5MG INH SOL UD 3ML (DUONEB) INH PRN (20:28)
[2024-06-18 04:00] VITALS: BP 158/74; TEMP 96.6; O2SAT 95
[2024-06-18 06:30] LABS: HEMATOCRIT 39.6 % (42.0-52.0); HEMOGLOBIN 12.6 g/dl (13.5-17.5); MEAN CORPUSCULAR HEMOGLOBIN 31.7 pg (27.0-33.0); MEAN CORPUSCULAR HGB CONC 31.8 g/dl (32.0-36.5); MEAN CORPUSCULAR VOLUME 99.5 fl (80.0-96.0); RED BLOOD COUNT 3.98 10^6/uL (4.30-6.10); WHITE BLOOD COUNT 9.9 10^3/uL (4.0-10.0)
[2024-06-18] MEDS: LEVEMIR (INSULIN DETEMIR) 1 UNITS/0.01ML SC SCH (07:52)
[2024-06-18 12:00] VITALS: BP 154/69; TEMP 97.3; O2SAT 95
[2024-06-18 20:00] VITALS: BP 144/63; TEMP 97.1; O2SAT 95
[2024-06-18] MEDS: predniSONE 20 MG TAB PO SCH (21:02)
[2024-06-19 04:00] VITALS: BP 166/72; TEMP 97.6; O2SAT 97
[2024-06-19 07:07] LABS: BASO % 0.1 % (0.0-1.0); HEMATOCRIT 41.1 % (42.0-52.0); LYMPH # 0.4 10^3/uL (1.5-5.0); LYMPH % 3.6 % (24.0-44.0); MEAN CORPUSCULAR HEMOGLOBIN 32.2 pg (27.0-33.0); MEAN CORPUSCULAR HGB CONC 31.6 g/dl (32.0-36.5); MEAN CORPUSCULAR VOLUME 101.7 fl (80.0-96.0); MONO # 0.3 10^3/uL (0.0-0.8); MONO % 2.6 % (2.0-8.0); NEUTROPHILS # 9.5 10^3/uL (1.5-8.5); NEUTROPHILS % 90.9 % (36.0-66.0); PLATELET COUNT, AUTOMATED 131 10^3/uL (150-450); RED BLOOD COUNT 4.04 10^6/uL (4.30-6.10); WHITE BLOOD COUNT 10.5 10^3/uL (4.0-10.0)
[2024-06-19 07:12] LABS: ERYTHROCYTE SEDIMENTATION RATE 41 mm/hr (0-20)
[2024-06-19 07:34] LABS: C REACTIVE PROTEIN QUANTITATIV 1.07 MG/DL (<1.0)
[2024-06-19 07:46] LABS: PROCALCITONIN 0.13 ng/ml
[2024-06-19 07:48] LABS: HEMOGLOBIN A1c 9.5 % (4.0-6.0)
[2024-06-19 07:53] LABS: BLOOD UREA NITROGEN 22 MG/DL (9-23); CALCIUM LEVEL 7.9 MG/DL (8.3-10.6); CARBON DIOXIDE LEVEL 37 MMOL/L (20-31); CHLORIDE LEVEL 98 MMOL/L (98-107); CREATININE FOR GFR 0.54 MG/DL (0.70-1.30); GLOMERULAR FILTRATION RATE > 60.0 (>42); GLUCOSE, FASTING 341 MG/DL (74-106); SODIUM LEVEL 139 MMOL/L (136-145)
[2024-06-19] MEDS: LEVEMIR (INSULIN DETEMIR) 1 UNITS/0.01ML SC ONE ×2 (08:13→12:35)
[2024-06-19] MEDS: INSULIN LISPRO (NovoLOG) PER UNIT SC SCH ×2 (08:14→12:34)
[2024-06-19] MEDS: CEFUROXIME 500 MG TAB PO SCH (08:15)
[2024-06-19] MEDS ORDERED: CEFDINIR 300 MG CAP (OMNICEF) PO SCH (09:00)
[2024-06-19 12:00] VITALS: BP 131/63; TEMP 97.3; O2SAT 96
[2024-06-19 19:59] VITALS: BP 155/74; TEMP 96.8; O2SAT 94
[2024-06-20 03:53] VITALS: BP 175/77; TEMP 98.6; O2SAT 94
[2024-06-20 04:02] VITALS: BP 145/70
[2024-06-20] MEDS: LEVEMIR (INSULIN DETEMIR) 1 UNITS/0.01ML SC ONE (07:24)
[2024-06-20] MEDS: INSULIN LISPRO (NovoLOG) PER UNIT SC STA ×3 (07:24→14:59)
[2024-06-20] MEDS: INSULIN LISPRO (NovoLOG) PER UNIT SC SCH (08:23)
[2024-06-20] MEDS ORDERED: LEVEMIR (INSULIN DETEMIR) 1 UNITS/0.01ML SC SCH (09:00)
[2024-06-20 10:50] LABS: ACETONE/KETONE 0.12 MMOL/L (0.02-0.27)
[2024-06-20 10:56] LABS: BLOOD UREA NITROGEN 23 MG/DL (9-23); CALCIUM LEVEL 8.1 MG/DL (8.3-10.6); CARBON DIOXIDE LEVEL 35 MMOL/L (20-31); CHLORIDE LEVEL 96 MMOL/L (98-107); CREATININE FOR GFR 0.69 MG/DL (0.70-1.30); GLOMERULAR FILTRATION RATE > 60.0 (>42); GLUCOSE, FASTING 424 MG/DL (74-106); POTASSIUM SERUM 4.3 MMOL/L (3.5-5.1); SODIUM LEVEL 138 MMOL/L (136-145)
[2024-06-20 12:00] VITALS: BP 143/66; TEMP 96.9; O2SAT 93
[2024-06-20] MEDS: INSULIN LISPRO (NovoLOG) PER UNIT SC ONE (12:04)
[2024-06-20 14:16] LABS: BLOOD UREA NITROGEN 21 MG/DL (9-23); CALCIUM LEVEL 7.9 MG/DL (8.3-10.6); CARBON DIOXIDE LEVEL 35 MMOL/L (20-31); CHLORIDE LEVEL 100 MMOL/L (98-107); CREATININE FOR GFR 0.69 MG/DL (0.70-1.30); GLOMERULAR FILTRATION RATE > 60.0 (>42); GLUCOSE, FASTING 309 MG/DL (74-106); POTASSIUM SERUM 4.5 MMOL/L (3.5-5.1); SODIUM LEVEL 142 MMOL/L (136-145)
[2024-06-20 20:00] VITALS: BP 160/72; TEMP 97.4; O2SAT 98
[2024-06-21 04:00] VITALS: BP 135/74; TEMP 97; O2SAT 95
[2024-06-21 06:06] LABS: HEMATOCRIT 43.9 % (42.0-52.0); MEAN CORPUSCULAR HGB CONC 31.9 g/dl (32.0-36.5); MEAN CORPUSCULAR VOLUME 100.5 fl (80.0-96.0); RED BLOOD COUNT 4.37 10^6/uL (4.30-6.10); WHITE BLOOD COUNT 14.3 10^3/uL (4.0-10.0)
[2024-06-21] MEDS ORDERED: LEVEMIR (INSULIN DETEMIR) 1 UNITS/0.01ML SC SCH (09:00)
[2024-06-21] MEDS: INSULIN LISPRO (NovoLOG) PER UNIT SC SCH ×2 (11:58)
[2024-06-21 12:00] VITALS: BP 140/74; TEMP 97; O2SAT 89
[2024-06-21] MEDS: GLIMEPIRIDE 2 MG TAB PO SCH (12:00)
[2024-06-21] MEDS: LanTUS (INSULIN GLARGINE INJ) 1 UNITS/0.01 ML SC ONE (14:24)
[2024-06-21] MEDS: INSULIN LISPRO (NovoLOG) PER UNIT SC STA (14:24)
[2024-06-21 20:00] VITALS: BP 139/65; TEMP 97.6; O2SAT 94
[2024-06-21] MEDS: predniSONE 10MG TAB PO SCH (20:22)
[2024-06-22 04:00] VITALS: BP 142/70; TEMP 97.6; O2SAT 93
[2024-06-22] MEDS: LanTUS (INSULIN GLARGINE INJ) 1 UNITS/0.01 ML SC SCH ×2 (07:42→20:47)
[2024-06-22] MEDS: INSULIN LISPRO (NovoLOG) PER UNIT SC ONE (10:14)
[2024-06-22 12:00] VITALS: BP 130/53; TEMP 97.3; O2SAT 95
[2024-06-22] MEDS: ENTER DRUG NAME HERE (PATIENT'S OWN MED) PO PRN (12:01)
[2024-06-22] MEDS: metFORMIN (GLUCOPHAGE) 1000MG TABLET PO ONE (12:01)
[2024-06-22] MEDS: INSULIN LISPRO (NovoLOG) PER UNIT SC SCH (12:15)
[2024-06-22] MEDS: metFORMIN (GLUCOPHAGE) 1000MG TABLET PO SCH (17:30)
[2024-06-22 20:00] VITALS: BP 143/71; TEMP 97.2; O2SAT 95
[2024-06-23 04:00] VITALS: BP 140/70; TEMP 97.3; O2SAT 93
[2024-06-23] MEDS: LanTUS (INSULIN GLARGINE INJ) 1 UNITS/0.01 ML SC ONE (11:59)
[2024-06-23 12:00] VITALS: BP 124/59; TEMP 98.3; O2SAT 97
[2024-06-23] MEDS ORDERED: CARV12.5 PO (16:45)
[2024-06-23] MEDS ORDERED: AMOX875T2 PO (16:45)
[2024-06-23] MEDS ORDERED: GLIM2TAB29 PO (16:45)
[2024-06-23] MEDS ORDERED: AMLO1TAB25 PO (16:45)
[2024-06-23] MEDS ORDERED: JANU50TA8 PO (16:45)
[2024-06-23] MEDS ORDERED: TRES1INJ2 SC (16:45)
[2024-06-23] MEDS ORDERED: PRED20TA PO (16:45)
[2024-06-23] MEDS ORDERED: PRED10TA2 PO (16:45)
[2024-06-23] MEDS ORDERED: GABA-1172 PO (16:45)
[2024-06-23 19:45] VITALS: BP 149/68; TEMP 97.3; O2SAT 94
[2024-06-23] MEDS: LanTUS (INSULIN GLARGINE INJ) 1 UNITS/0.01 ML SC SCH (20:30)
[2024-06-24 04:00] VITALS: BP 122/58; TEMP 97; O2SAT 94
[2024-06-24 07:09] LABS: HEMATOCRIT 41.6 % (42.0-52.0); HEMOGLOBIN 13.4 g/dl (13.5-17.5); MEAN CORPUSCULAR HEMOGLOBIN 32.4 pg (27.0-33.0); MEAN CORPUSCULAR HGB CONC 32.2 g/dl (32.0-36.5); MEAN CORPUSCULAR VOLUME 100.7 fl (80.0-96.0); PLATELET COUNT, AUTOMATED 130 10^3/uL (150-450); RED BLOOD COUNT 4.13 10^6/uL (4.30-6.10); WHITE BLOOD COUNT 13.1 10^3/uL (4.0-10.0)
[2024-06-24] MEDS: LanTUS (INSULIN GLARGINE INJ) 1 UNITS/0.01 ML SC SCH ×2 (07:35→21:25)
[2024-06-24 12:00] VITALS: BP 142/66; TEMP 96.6; O2SAT 92
[2024-06-24] MEDS: INSULIN LISPRO (NovoLOG) PER UNIT SC SCH ×2 (12:38→17:40)
[2024-06-24 19:58] VITALS: BP 140/65; TEMP 96; O2SAT 95
[2024-06-24] MEDS ORDERED: LanTUS (INSULIN GLARGINE INJ) 1 UNITS/0.01 ML SC SCH (21:00)
[2024-06-24] MEDS: predniSONE 20 MG TAB PO SCH (21:23)
[2024-06-25 04:00] VITALS: BP 129/58; TEMP 97.1; O2SAT 94
[2024-06-25] MEDS: LanTUS (INSULIN GLARGINE INJ) 1 UNITS/0.01 ML SC SCH (08:44)
[2024-06-25 12:00] VITALS: BP 130/72; TEMP 97.1; O2SAT 96
[2024-06-25 19:39] VITALS: BP 135/62; TEMP 97.1; O2SAT 99
[2024-06-25 19:52] VITALS: BP 133/60; TEMP 97; O2SAT 99
[2024-06-26 04:00] VITALS: BP_SYST 130; BP_SYST 137; BP_DIAS 61; BP_DIAS 65; TEMP 96.8; TEMP 98.8; O2SAT 94; O2SAT 97
[2024-06-26 12:00] VITALS: BP 127/61; TEMP 97.1; O2SAT 96
[2024-06-26 19:46] VITALS: BP 146/67; TEMP 96.7; O2SAT 96
[2024-06-26] MEDS: guaiFENesin ER TABLET 600 MG TAB PO PRN (20:15)
[2024-06-27 03:53] VITALS: BP 134/59; TEMP 97; O2SAT 95
[2024-06-27] MEDS ORDERED: INSULIN LISPRO (NovoLOG) PER UNIT SC SCH (07:30)
[2024-06-27 07:43] LABS: HEMATOCRIT 44.3 % (42.0-52.0); HEMOGLOBIN 13.6 g/dl (13.5-17.5); MEAN CORPUSCULAR HEMOGLOBIN 31.9 pg (27.0-33.0); MEAN CORPUSCULAR HGB CONC 30.7 g/dl (32.0-36.5); MEAN CORPUSCULAR VOLUME 103.7 fl (80.0-96.0); PLATELET COUNT, AUTOMATED 129 10^3/uL (150-450); RED BLOOD COUNT 4.27 10^6/uL (4.30-6.10)
[2024-06-27] MEDS: INSULIN LISPRO (NovoLOG) PER UNIT SC SCH (08:02)
[2024-06-27 12:00] VITALS: BP 132/64; TEMP 97; O2SAT 98
[2024-06-27 21:20] VITALS: BP 157/70; TEMP 96.8; O2SAT 97
[2024-06-27] MEDS: predniSONE 10MG TAB PO SCH (21:27)
[2024-06-27] MEDS: LanTUS (INSULIN GLARGINE INJ) 1 UNITS/0.01 ML SC SCH (21:29)
[2024-06-28 04:57] VITALS: BP 123/63; TEMP 96.8; O2SAT 93
[2024-06-28 07:52] VITALS: BP 120/80
[2024-06-28 12:11] VITALS: BP 125/61; TEMP 97.3; O2SAT 95
== END 2024-06-28 14:30 | disposition home health service (06) | DRG 194 ==
LOC: M PM&R 16:05
PROVIDERS: ADMIT Physical Medicine & Rehabilitation; ATTEND Student in an Organized Health Care Education/Training Program
DX: J18.9 Pneumonia, unspecified organism (principal); J44.1 Chronic obstructive pulmonary disease with (acute) exacerbation; J44.0 Chronic obstructive pulmonary disease with (acute) lower respiratory infection; R53.81 Other malaise; I25.10 Atherosclerotic heart disease of native coronary artery without angina pectoris; E11.40 Type 2 diabetes mellitus with diabetic neuropathy, unspecified; I10 Essential (primary) hypertension; E11.51 Type 2 diabetes mellitus with diabetic peripheral angiopathy without gangrene; E78.5 Hyperlipidemia, unspecified; E11.65 Type 2 diabetes mellitus with hyperglycemia; K59.00 Constipation, unspecified; H53.8 Other visual disturbances; M62.81 Muscle weakness (generalized); Z66 Do not resuscitate; Z74.09 Other reduced mobility; Z74.1 Need for assistance with personal care; Z88.1 Allergy status to other antibiotic agents; Z88.5 Allergy status to narcotic agent; Z88.8 Allergy status to other drugs, medicaments and biological substances; Z87.891 Personal history of nicotine dependence; Z95.820 Peripheral vascular angioplasty status with implants and grafts; Z90.49 Acquired absence of other specified parts of digestive tract; Z95.5 Presence of coronary angioplasty implant and graft; Z79.4 Long term (current) use of insulin; Z79.82 Long term (current) use of aspirin; Z79.02 Long term (current) use of antithrombotics/antiplatelets; Y95 Nosocomial condition

== ENCOUNTER → 2024-07-20 | Outpatient (REF) | payer MEDICARE, OTHER ==
[~2024-07-20] MED LIST changes: +AMLO1TAB25 PO; +AMOX875T2 PO; +CARV12.5 PO
[2024-07-20 11:56] LABS: BASO # 0.1 10^3/uL (0.0-0.2); BASO % 0.7 % (0.0-1.0); EOS % 0.3 % (0.0-3.0); HEMATOCRIT 45.2 % (42.0-52.0); HEMOGLOBIN 14.1 g/dl (13.5-17.5); LYMPH # 2.9 10^3/uL (1.5-5.0); LYMPH % 29.8 % (24.0-44.0); MEAN CORPUSCULAR HGB CONC 31.2 g/dl (32.0-36.5); MEAN CORPUSCULAR VOLUME 102.7 fl (80.0-96.0); MONO # 1.1 10^3/uL (0.0-0.8); NEUTROPHILS # 5.3 10^3/uL (1.5-8.5); NEUTROPHILS % 54.6 % (36.0-66.0); PLATELET COUNT, AUTOMATED 186 10^3/uL (150-450); WHITE BLOOD COUNT 9.6 10^3/uL (4.0-10.0)
[2024-07-20 12:33] LABS: HEMOGLOBIN A1c 7.1 % (4.0-6.0)
[2024-07-20 12:36] LABS: ALBUMIN 2.9 G/DL (3.2-5.2); ALKALINE PHOSPHATASE 82 U/L (40-129); ALT/SGPT 15 U/L (7.0-40); AST/SGOT 14 U/L (<34); BILIRUBIN,TOTAL 0.4 MG/DL (0.3-1.2); BLOOD UREA NITROGEN 10 MG/DL (9-23); CARBON DIOXIDE LEVEL 34 MMOL/L (20-31); CHLORIDE LEVEL 100 MMOL/L (98-107); GLOMERULAR FILTRATION RATE > 60.0 (>42); GLUCOSE, FASTING 90 MG/DL (74-106); POTASSIUM SERUM 4.4 MMOL/L (3.5-5.1); SODIUM LEVEL 141 MMOL/L (136-145); TOTAL PROTEIN 6.7 G/DL (5.7-8.2)
== END ==
LOC: M LAB REF 11:14
PROVIDERS: ATTEND Family Medicine
DX: I10 Essential (primary) hypertension (principal); Z79.4 Long term (current) use of insulin

== ENCOUNTER → 2024-07-28 | Outpatient (CLI) | payer MEDICARE, OTHER ==
[~2024-07-28] MED LIST changes: +ISOVUE-370 76% 100ML VIAL As Ordered ONE
== END ==
LOC: M RAD 15:26
PROVIDERS: ATTEND Surgery Vascular Surgery
DX: I73.9 Peripheral vascular disease, unspecified (principal); I70.1 Atherosclerosis of renal artery; I70.8 Atherosclerosis of other arteries
CPT/HCPCS: 75635; Q9967

== ENCOUNTER 2024-08-10 15:30 | Inpatient (IN) | payer MEDICARE, OTHER ==
[~2024-08-10] VITALS: Ht 162.6 cm; Wt 64.5 kg
[~2024-08-10 15:30] MED LIST changes: -ISOVUE-370 76% 100ML VIAL As Ordered ONE
[2024-08-10 16:34] LABS: BASO % 0.1 % (0.0-1.0); EOS % 0.1 % (0.0-3.0); HEMATOCRIT 42.8 % (42.0-52.0); HEMOGLOBIN 13.6 g/dl (13.5-17.5); LYMPH # 2.5 10^3/uL (1.5-5.0); LYMPH % 24.4 % (24.0-44.0); MEAN CORPUSCULAR HGB CONC 31.8 g/dl (32.0-36.5); MEAN CORPUSCULAR VOLUME 97.5 fl (80.0-96.0); MONO # 0.5 10^3/uL (0.0-0.8); MONO % 4.9 % (2.0-8.0); NEUTROPHILS % 69.6 % (36.0-66.0); PLATELET COUNT, AUTOMATED 180 10^3/uL (150-450); RED BLOOD COUNT 4.39 10^6/uL (4.30-6.10)
[2024-08-10 17:01] LABS: LIPASE 19 U/L (12-53)
[2024-08-10 17:03] LABS: ALKALINE PHOSPHATASE 59 U/L (40-129); ALT/SGPT < 9 U/L (7.0-40); AST/SGOT 13 U/L (<34); BILIRUBIN,DIRECT 0.2 MG/DL (<0.4); BILIRUBIN,TOTAL 0.5 MG/DL (0.3-1.2); BLOOD UREA NITROGEN 11 MG/DL (9-23); CARBON DIOXIDE LEVEL 30 MMOL/L (20-31); CHLORIDE LEVEL 100 MMOL/L (98-107); CREATININE FOR GFR 0.62 MG/DL (0.70-1.30); GLOMERULAR FILTRATION RATE > 90.0 (>42); GLUCOSE, FASTING 131 MG/DL (74-106); MAGNESIUM LEVEL 1.4 MG/DL (1.8-2.4); POTASSIUM SERUM 4.3 MMOL/L (3.5-5.1); SODIUM LEVEL 140 MMOL/L (136-145); TOTAL PROTEIN 6.3 G/DL (5.7-8.2)
[2024-08-10] MEDS: NS (Normal Saline) 0.9% 1,000 ML IV ONE (17:20)
[2024-08-10] MEDS ORDERED: ISOVUE-370 76% 100ML VIAL As Ordered ONE (19:23)
[2024-08-10] MEDS: MAG SULF 1GM/100ML (MAG RUN) 1 GM in IV 1 EA IV ONE (21:42)
[2024-08-10] MEDS ORDERED: TRAM50TA2 PO (22:42)
[2024-08-10] MEDS ORDERED: NICO21DI37 TOP (22:42)
[2024-08-10] MEDS ORDERED: GLIM2TAB29 PO (22:42)
[2024-08-10] MEDS ORDERED: ONDA-83 PO (22:42)
[2024-08-10] MEDS ORDERED: HOME MED LIST COMPLETE! XX SCH (22:45)
[2024-08-10] MEDS: IPRATROPIUM 0.5MG/ALBUTEROL 2.5MG INH SOL UD 3ML NEB ONE (23:31)
[2024-08-11] MEDS: IPRATROPIUM 0.5MG/ALBUTEROL 2.5MG INH SOL UD 3ML NEB PRN (03:08)
[2024-08-11] MEDS ORDERED: LOPERAMIDE 2 MG CAPLET PO PRN (03:15)
[2024-08-11] MEDS ORDERED: GLUCOSE 4 GM CHEW PO PRN (03:15)
[2024-08-11] MEDS ORDERED: GLUCAGON INJ 1MG VIAL SC PRN (03:15)
[2024-08-11] MEDS ORDERED: MAALOX 30 ML SUSP *UDC PO PRN (03:15)
[2024-08-11] MEDS: NS (Normal Saline) 0.9% 1,000 ML IV SCH (04:04)
[2024-08-11] MEDS: AZITHROMYCIN 250MG TABLET PO SCH (04:04)
[2024-08-11] MEDS: DEXTROSE 50% 50ML SYRINGE IV PRN (04:04)
[2024-08-11 05:16] VITALS: BP 137/72; TEMP 98.5; O2SAT 93
[2024-08-11 05:26] LABS: BASO % 0.3 % (0.0-1.0); EOS # 0.1 10^3/uL (0.0-0.5); EOS % 0.7 % (0.0-3.0); HEMATOCRIT 39.1 % (42.0-52.0); HEMOGLOBIN 12.7 g/dl (13.5-17.5); LYMPH # 2.1 10^3/uL (1.5-5.0); LYMPH % 19.6 % (24.0-44.0); MEAN CORPUSCULAR HEMOGLOBIN 31.7 pg (27.0-33.0); MEAN CORPUSCULAR HGB CONC 32.5 g/dl (32.0-36.5); MEAN CORPUSCULAR VOLUME 97.5 fl (80.0-96.0); MONO # 0.9 10^3/uL (0.0-0.8); MONO % 8.2 % (2.0-8.0); NEUTROPHILS # 7.5 10^3/uL (1.5-8.5); NEUTROPHILS % 70.8 % (36.0-66.0); PLATELET COUNT, AUTOMATED 150 10^3/uL (150-450); RED BLOOD COUNT 4.01 10^6/uL (4.30-6.10); WHITE BLOOD COUNT 10.6 10^3/uL (4.0-10.0)
[2024-08-11 05:52] LABS: THYROID STIMULATING HORMONE 0.564 uIU/ML (0.55-4.78)
[2024-08-11 05:59] LABS: BLOOD UREA NITROGEN 8 MG/DL (9-23); CALCIUM LEVEL 8.2 MG/DL (8.3-10.6); CARBON DIOXIDE LEVEL 29 MMOL/L (20-31); CHLORIDE LEVEL 104 MMOL/L (98-107); CREATININE FOR GFR 0.47 MG/DL (0.70-1.30); GLOMERULAR FILTRATION RATE > 90.0 (>42); GLUCOSE, FASTING 179 MG/DL (74-106); SODIUM LEVEL 141 MMOL/L (136-145)
[2024-08-11 06:00] LABS: POTASSIUM SERUM 3.1 MMOL/L (3.5-5.1)
[2024-08-11] MEDS: ACETAMINOPHEN 325 MG TAB PO PRN (06:12)
[2024-08-11 08:00] VITALS: BP 146/78; TEMP 97.3; O2SAT 93
[2024-08-11] MEDS: HEPARIN SOD (PORCINE) 5000UNITS/ML 1ML VIAL/SYRINGE SC SCH (08:41)
[2024-08-11] MEDS: POTASSIUM CHLORIDE 10MEQ SR TABLET PO ONE (08:42)
[2024-08-11] MEDS: NYSTATIN 100,000 UNITS/GM TOPICAL PWD 15GM TOP SCH (09:00)
[2024-08-11] MEDS ORDERED: LevoFLOXacin 750 MG TABLET PO SCH (09:15)
[2024-08-11] MEDS ORDERED: IPRATROPIUM 0.5MG/ALBUTEROL 2.5MG INH SOL UD 3ML NEB PRN (09:15)
[2024-08-11] MEDS ORDERED: IPRATROPIUM 0.5MG/ALBUTEROL 2.5MG INH SOL UD 3ML INH PRN (09:20)
[2024-08-11] MEDS ORDERED: COMBIVENT RESPIMAT 100-20MCG INHALER 4GM INH PRN (09:20)
[2024-08-11] MEDS ORDERED: FLUTICASONE PROP 0.05% NASAL SPRAY 16 GM (FLONASE) NARES PRN (09:20)
[2024-08-11] MEDS ORDERED: LORATADINE 10 MG TAB PO PRN (09:20)
[2024-08-11] MEDS ORDERED: ONDANSETRON 4MG TAB PO PRN (09:20)
[2024-08-11 09:36] VITALS: BP 144/79
[2024-08-11 09:43] LABS: MAGNESIUM LEVEL 1.5 MG/DL (1.8-2.4)
[2024-08-11 10:48] LABS: HEMOGLOBIN A1c 6.3 % (4.0-6.0)
[2024-08-11] MEDS ORDERED: MAG SULF 1GM/100ML (MAG RUN) 1 GM in IV 1 EA IV ONE (10:55)
[2024-08-11] MEDS: MAG SULF 1GM/100ML (MAG RUN) 1 GM in IV 1 EA IV SCH (11:01)
[2024-08-11] MEDS: LACTOBACILLUS ACIDOPHILUS CAP (BACID) PO SCH (11:01)
[2024-08-11] MEDS: ASPIRIN 81MG ENTERIC TABLET PO SCH (11:01)
[2024-08-11] MEDS: PENTOXIFYLLINE 400MG TAB PO SCH (11:02)
[2024-08-11] MEDS: predniSONE 20 MG TAB PO SCH (11:02)
[2024-08-11] MEDS: CLOPIDOGREL 75 MG TAB PO SCH (11:02)
[2024-08-11] MEDS: CARVedilol 12.5 MG TAB PO SCH (11:03)
[2024-08-11] MEDS: MONTELUKAST 10 MG TAB PO SCH (11:03)
[2024-08-11] MEDS: lisinopriL 5 MG TAB PO SCH (11:03)
[2024-08-11] MEDS: BUDESONIDE 0.5 MG/2 ML INHALATION SUSPENSION INH SCH (11:11)
[2024-08-11] MEDS: TIOTROPIUM BROM 2.5MCG/ACTUATION 4GM INH IH SCH (11:11)
[2024-08-11] MEDS: INSULIN LISPRO (NovoLOG) PER UNIT SC SCH ×2 (11:55→21:00)
[2024-08-11 12:00] VITALS: BP 137/74; TEMP 97.9; O2SAT 90
[2024-08-11 12:01] LABS: PROCALCITONIN 0.13 ng/ml
[2024-08-11] MEDS: DOXYCYCLINE HYCLATE 100MG TABLET PO SCH (12:08)
[2024-08-11] MEDS: GABAPENTIN 300 MG CAP PO SCH (12:08)
[2024-08-11] MEDS: guaiFENesin ER TABLET 600 MG TAB PO SCH (12:08)
[2024-08-11] MEDS: NICOTINE 21MG/24HR 1 EA TRANSDERMAL TOP SCH (12:08)
[2024-08-11] MEDS: AMOXICILLIN 875 MG TAB PO SCH (12:13)
[2024-08-11] MEDS: PANTOPRAZOLE 40MG TAB (PROTONIX) PO SCH (14:32)
[2024-08-11 15:46] VITALS: BP 137/74; TEMP 97.9; O2SAT 95
[2024-08-11] MEDS: IPRATROPIUM 0.5MG/ALBUTEROL 2.5MG INH SOL UD 3ML NEB SCH (16:18)
[2024-08-11 17:14] LABS: HEMATOCRIT 39.4 % (42.0-52.0); HEMOGLOBIN 12.7 g/dl (13.5-17.5); MEAN CORPUSCULAR HEMOGLOBIN 31.8 pg (27.0-33.0); MEAN CORPUSCULAR HGB CONC 32.2 g/dl (32.0-36.5); MEAN CORPUSCULAR VOLUME 98.5 fl (80.0-96.0); PLATELET COUNT, AUTOMATED 173 10^3/uL (150-450); WHITE BLOOD COUNT 6.9 10^3/uL (4.0-10.0)
[2024-08-11 17:39] LABS: BLOOD UREA NITROGEN 7 MG/DL (9-23); CALCIUM LEVEL 7.9 MG/DL (8.3-10.6); CARBON DIOXIDE LEVEL 27 MMOL/L (20-31); CHLORIDE LEVEL 104 MMOL/L (98-107); CREATININE FOR GFR 0.55 MG/DL (0.70-1.30); GLOMERULAR FILTRATION RATE > 90.0 (>42); GLUCOSE, FASTING 232 MG/DL (74-106); POTASSIUM SERUM 4.4 MMOL/L (3.5-5.1); SODIUM LEVEL 138 MMOL/L (136-145)
[2024-08-11 20:28] VITALS: BP 115/63; TEMP 97.5; O2SAT 95
[2024-08-11] MEDS: PRAVASTATIN 20 MG TAB PO SCH (21:12)
[2024-08-12 00:11] VITALS: BP 132/72; TEMP 97.7; O2SAT 95
[2024-08-12 03:38] VITALS: BP 129/65; TEMP 97.9; O2SAT 95
[2024-08-12 06:17] LABS: HEMATOCRIT 36.2 % (42.0-52.0); HEMOGLOBIN 11.7 g/dl (13.5-17.5); MEAN CORPUSCULAR HEMOGLOBIN 31.6 pg (27.0-33.0); MEAN CORPUSCULAR HGB CONC 32.3 g/dl (32.0-36.5); MEAN CORPUSCULAR VOLUME 97.8 fl (80.0-96.0); PLATELET COUNT, AUTOMATED 154 10^3/uL (150-450); WHITE BLOOD COUNT 7.8 10^3/uL (4.0-10.0)
[2024-08-12 06:47] VITALS: BP 168/86; TEMP 97.9; O2SAT 96
[2024-08-12 07:07] LABS: BLOOD UREA NITROGEN 8 MG/DL (9-23); CALCIUM LEVEL 7.8 MG/DL (8.3-10.6); CARBON DIOXIDE LEVEL 28 MMOL/L (20-31); CHLORIDE LEVEL 105 MMOL/L (98-107); GLOMERULAR FILTRATION RATE > 90.0 (>42); GLUCOSE, FASTING 216 MG/DL (74-106); MAGNESIUM LEVEL 1.8 MG/DL (1.8-2.4); POTASSIUM SERUM 3.7 MMOL/L (3.5-5.1); SODIUM LEVEL 141 MMOL/L (136-145)
[2024-08-12] MEDS: MAG SULF 1GM/100ML (MAG RUN) 1 GM in IV 1 EA IV ONE (07:45)
[2024-08-12 07:48] VITALS: BP 156/79
[2024-08-12 08:00] VITALS: BP 156/79; TEMP 97.5; O2SAT 96
[2024-08-12] MEDS ORDERED: DOXY100C3 PO (10:50)
[2024-08-12] MEDS ORDERED: PROBCAP19 PO (10:50)
[2024-08-12] MEDS ORDERED: AMOX875T PO (10:50)
[2024-08-12] MEDS ORDERED: MUCI120T PO (10:58)
[2024-08-12 12:00] VITALS: TEMP 97.5; O2SAT 97
[2024-08-12] MEDS ORDERED: PRED20TA PO (16:02)
[2024-08-12] MEDS ORDERED: IPRA0.00 INH (16:05)
[2024-08-12] MEDS ORDERED: PRED10TA2 PO (16:33)
[2024-08-12] MEDS ORDERED: guaiFENesin ER TABLET 600 MG TAB PO SCH (21:00)
== END 2024-08-12 17:06 | disposition home health service (06) | DRG 393 ==
LOC: M ED 15:30 → EDBD 15:30 → M ED INP 08-11 03:12 → M MSPAV 08-11 05:10
PROVIDERS: ADMIT Student in an Organized Health Care Education/Training Program; ATTEND Internal Medicine
DX: K52.1 Toxic gastroenteritis and colitis (principal); J18.9 Pneumonia, unspecified organism; E87.20 Acidosis, unspecified; I10 Essential (primary) hypertension; I25.10 Atherosclerotic heart disease of native coronary artery without angina pectoris; E78.00 Pure hypercholesterolemia, unspecified; F17.200 Nicotine dependence, unspecified, uncomplicated; E87.6 Hypokalemia; E83.42 Hypomagnesemia; J40 Bronchitis, not specified as acute or chronic; E78.5 Hyperlipidemia, unspecified; E11.40 Type 2 diabetes mellitus with diabetic neuropathy, unspecified; J44.9 Chronic obstructive pulmonary disease, unspecified; E11.51 Type 2 diabetes mellitus with diabetic peripheral angiopathy without gangrene; T36.95XA Adverse effect of unspecified systemic antibiotic, initial encounter; Z79.82 Long term (current) use of aspirin; Z95.5 Presence of coronary angioplasty implant and graft; Z79.4 Long term (current) use of insulin; Z79.02 Long term (current) use of antithrombotics/antiplatelets; Z79.899 Other long term (current) drug therapy; Z88.1 Allergy status to other antibiotic agents; Z88.5 Allergy status to narcotic agent; Z88.8 Allergy status to other drugs, medicaments and biological substances

== ENCOUNTER → 2024-08-23 | Outpatient (REF) | payer MEDICARE, OTHER ==
[~2024-08-23] MED LIST changes: +AMOX875T PO; +DOXY100C3 PO; +MUCI120T PO; +NICO21DI37 TOP; +ONDA-83 PO; +PROBCAP19 PO; +TRAM50TA2 PO
[2024-08-23 14:49] LABS: HEMATOCRIT 42.3 % (42.0-52.0); MEAN CORPUSCULAR HEMOGLOBIN 31.2 pg (27.0-33.0); MEAN CORPUSCULAR HGB CONC 30.7 g/dl (32.0-36.5); MEAN CORPUSCULAR VOLUME 101.4 fl (80.0-96.0); PLATELET COUNT, AUTOMATED 250 10^3/uL (150-450); RED BLOOD COUNT 4.17 10^6/uL (4.30-6.10); WHITE BLOOD COUNT 10.3 10^3/uL (4.0-10.0)
[2024-08-23 15:03] LABS: INR 0.87; PARTIAL THROMBOPLASTIN TIME 32.5 SECONDS (24.8-34.2); PROTHROMBIN TIME 12.1 SECONDS (12.5-14.5)
[2024-08-23 15:24] LABS: BLOOD UREA NITROGEN 8 MG/DL (9-23); CALCIUM LEVEL 8.3 MG/DL (8.3-10.6); CARBON DIOXIDE LEVEL 32 MMOL/L (20-31); CHLORIDE LEVEL 103 MMOL/L (98-107); CREATININE FOR GFR 0.47 MG/DL (0.70-1.30); GLOMERULAR FILTRATION RATE > 90.0 (>42); GLUCOSE, FASTING 89 MG/DL (74-106); POTASSIUM SERUM 3.7 MMOL/L (3.5-5.1); SODIUM LEVEL 144 MMOL/L (136-145)
== END ==
LOC: M SHH 14:40
PROVIDERS: ATTEND Physician Assistant
DX: Z01.818 Encounter for other preprocedural examination (principal); D68.9 Coagulation defect, unspecified

== ENCOUNTER → 2024-10-26 | Outpatient (REF) | payer MEDICARE, OTHER ==
[~2024-10-26] MED LIST changes: -PRAV80TA2 PO; +PRAV80TA75 PO
[2024-10-26 11:14] LABS: BASO # 0.0 10^3/uL (0.0-0.2); BASO % 0.4 % (0.0-1.0); EOS # 0.2 10^3/uL (0.0-0.5); EOS % 1.8 % (0.0-3.0); LYMPH # 2.7 10^3/uL (1.5-5.0); LYMPH % 28.5 % (24.0-44.0); MONO # 0.7 10^3/uL (0.0-0.8); MONO % 7.5 % (2.0-8.0); NEUTROPHILS # 5.7 10^3/uL (1.5-8.5); NEUTROPHILS % 61.3 % (36.0-66.0); PLATELET COUNT, AUTOMATED 157 10^3/uL (150-450)
[2024-10-26 11:50] LABS: ALT/SGPT 16 U/L (7.0-40); AST/SGOT 21 U/L (<34); CALCIUM LEVEL 9.1 MG/DL (8.3-10.6); CARBON DIOXIDE LEVEL 29 MMOL/L (20-31); CHLORIDE LEVEL 101 MMOL/L (98-107); CHOLESTEROL LEVEL 130 MG/DL (<200); CHOLESTEROL RISK RATIO 3.69 (<5); CREATININE FOR GFR 0.59 MG/DL (0.70-1.30); GLOMERULAR FILTRATION RATE > 90.0 (>42); LDL CHOLESTEROL 41.4 MG/DL (<100); MAGNESIUM LEVEL 1.6 MG/DL (1.8-2.4); NON-HDL-C 94.8 MG/DL; POTASSIUM SERUM 4.8 MMOL/L (3.5-5.1); SODIUM LEVEL 140 MMOL/L (136-145); TRIGLYCERIDES LEVEL 267 MG/DL (<150)
[2024-10-26 12:01] LABS: ESTIMATED AVERAGE GLUCOSE 137.0 MG/DL (60-110)
== END ==
LOC: M SHH 10:58
PROVIDERS: ATTEND Family Medicine
DX: J44.9 Chronic obstructive pulmonary disease, unspecified (principal); I73.9 Peripheral vascular disease, unspecified; E11.621 Type 2 diabetes mellitus with foot ulcer

== ENCOUNTER 2024-12-28 02:27 | Observation (INO) | payer MEDICARE, OTHER ==
[~2024-12-28] VITALS: Ht 162.6 cm; Wt 55.9 kg
[~2024-12-28 02:27] MED LIST changes: +SLOW1TAB3 PO; -SLOWTAB2 PO
[2024-12-28 03:28] LABS: BASO # 0.1 10^3/uL (0.0-0.2); BASO % 0.7 % (0.0-1.0); EOS # 0.3 10^3/uL (0.0-0.5); EOS % 2.5 % (0.0-3.0); LYMPH # 2.9 10^3/uL (1.5-5.0); LYMPH % 26.1 % (24.0-44.0); MONO # 1.0 10^3/uL (0.0-0.8); MONO % 9.1 % (2.0-8.0); NEUTROPHILS # 6.8 10^3/uL (1.5-8.5); NEUTROPHILS % 61.0 % (36.0-66.0); PLATELET COUNT, AUTOMATED 315 10^3/uL (150-450)
[2024-12-28 03:50] LABS: ALT/SGPT 12 U/L (7.0-40); AST/SGOT 13 U/L (<34); CALCIUM LEVEL 8.9 MG/DL (8.3-10.6); CARBON DIOXIDE LEVEL 27 MMOL/L (20-31); CHLORIDE LEVEL 104 MMOL/L (98-107); CK-MB VALUE MASS 4.2 NG/ML (<3.6); CPK CREATINE PHOSPHOKINASE 17 U/L (46-171); CREATININE FOR GFR 0.82 MG/DL (0.70-1.30); GLOMERULAR FILTRATION RATE > 90.0 (>42); MB/CK RELATIVE INDEX 24.70 (< OR =4); POTASSIUM SERUM 4.4 MMOL/L (3.5-5.1); SODIUM LEVEL 139 MMOL/L (136-145)
[2024-12-28 04:58] LABS: KETONE, URINE AUTO RFX NEGATIVE (NEGATIVE); LEUKOCYTE ESTERASE UR AUTO RFX 2+ (NEGATIVE); NITRITE, URINE AUTO RFX NEGATIVE (NEGATIVE); RBC, URINE AUTO RFX 4 /HPF (0-3); SQUAM EPITHELIAL CELL UR AURFX 3 /HPF (0-6); WBC, URINE AUTO RFX 14 /HPF (0-3)
[2024-12-28] MEDS: NS 500 ML IV ONE (06:23)
[2024-12-28] MEDS: cefTRIAXone SOD 1 GM in DEXTROSE 5% (D5W) ADV/MINI-BAG 50 ML IV ONE (06:23)
[2024-12-28] MEDS: [UNRECOGNIZED DRUG - OTHER] IV STA (08:11)
[2024-12-28] MEDS: NS 0.9% IV STA (08:11)
[2024-12-28] MEDS ORDERED: AMLO1TAB24 PO (09:47)
[2024-12-28] MEDS ORDERED: FURO20TA2 PO (09:47)
[2024-12-28] MEDS ORDERED: HYDR-3713 PO (09:47)
[2024-12-28] MEDS ORDERED: AZEL1SPR3 NARES (09:47)
[2024-12-28] MEDS ORDERED: MUCI120T PO (09:47)
[2024-12-28] MEDS ORDERED: PROB1TAB2 PO (09:47)
[2024-12-28] MEDS ORDERED: HOME MED LIST COMPLETE! XX SCH (09:50)
[2024-12-28 12:25] VITALS: BP 131/79; TEMP 97.7; O2SAT 92
[2024-12-28] MEDS ORDERED: LORATADINE 10 MG TAB PO PRN (12:35)
[2024-12-28] MEDS ORDERED: COMBIVENT RESPIMAT 100-20 MCG INHALER 4 GM INH PRN (12:35)
[2024-12-28] MEDS ORDERED: FLUTICASONE PROPIONATE 0.05% NASAL SPRAY 16 GM NARES PRN (12:35)
[2024-12-28] MEDS ORDERED: IPRATROPIUM 0.5 MG/ALBUTEROL 2.5 MG INH SOL UD 3 ML INH PRN (12:35)
[2024-12-28] MEDS ORDERED: ONDANSETRON 4MG TAB PO PRN (12:35)
[2024-12-28] MEDS: GABAPENTIN 300 MG CAP PO SCH (13:01)
[2024-12-28] MEDS: MONTELUKAST 10 MG TAB PO SCH (13:01)
[2024-12-28] MEDS: ACETAMINOPHEN 325 MG TAB PO SCH (13:02)
[2024-12-28] MEDS: DAPAGLIFLOZIN PROPANEDIOL 10 MG TABLET PO SCH (13:49)
[2024-12-28] MEDS: ASPIRIN 81 MG ENTERIC TABLET PO SCH (13:49)
[2024-12-28] MEDS: CLOPIDOGREL 75 MG TAB PO SCH (13:49)
[2024-12-28] MEDS: PENTOXIFYLLINE 400 MG PO SCH (17:06)
[2024-12-28] MEDS: traMADol 50 MG TAB PO PRN (17:07)
[2024-12-28] MEDS: BUDESONIDE 0.5 MG/2 ML INHALATION SUSPENSION INH SCH (20:24)
[2024-12-28 20:45] VITALS: BP 127/78; TEMP 97.6; O2SAT 92
[2024-12-28] MEDS ORDERED: NICOTINE 21 MG/24 HR 1 EA TRANSDERMAL TOP SCH (21:00)
[2024-12-28] MEDS: PRAVASTATIN 20 MG TAB PO SCH (22:54)
[2024-12-28] MEDS: amLODIPine 5 MG TAB PO SCH (22:54)
[2024-12-28] MEDS: NICOTINE 21 MG/24 HR 1 EA TRANSDERMAL TOP SCH (22:59)
[2024-12-29] MEDS ORDERED: GLUCAGON INJ 1 MG VIAL SC PRN
[2024-12-29] MEDS ORDERED: GLUCOSE 4 GM CHEW PO PRN
[2024-12-29] MEDS ORDERED: DEXTROSE 50% 50 ML SYRINGE IV PRN
[2024-12-29] MEDS: INSULIN GLARGINE-YFGN 1 UNITS/0.01 ML SC SCH (00:39)
[2024-12-29 03:36] VITALS: BP 126/67; TEMP 98; O2SAT 96
[2024-12-29] MEDS: cefTRIAXone SOD 1 GM in DEXTROSE 5% (D5W) ADV/MINI-BAG 50 ML IV SCH (06:01)
[2024-12-29] MEDS: INSULIN LISPRO (NovoLOG) PER UNIT SC SCH (08:03)
[2024-12-29 08:05] LABS: BASO # 0.1 10^3/uL (0.0-0.2); BASO % 0.7 % (0.0-1.0); EOS # 0.3 10^3/uL (0.0-0.5); EOS % 2.7 % (0.0-3.0); LYMPH # 2.9 10^3/uL (1.5-5.0); LYMPH % 30.8 % (24.0-44.0); MONO # 0.7 10^3/uL (0.0-0.8); MONO % 7.8 % (2.0-8.0); NEUTROPHILS # 5.4 10^3/uL (1.5-8.5); NEUTROPHILS % 57.4 % (36.0-66.0); PLATELET COUNT, AUTOMATED 266 10^3/uL (150-450)
[2024-12-29 08:06] VITALS: BP 115/58
[2024-12-29 08:13] LABS: ERYTHROCYTE SEDIMENTATION RATE 26 mm/hr (0-20)
[2024-12-29 08:34] LABS: C REACTIVE PROTEIN QUANTITATIV 0.64 MG/DL (<1.0); CALCIUM LEVEL 8.4 MG/DL (8.3-10.6); CARBON DIOXIDE LEVEL 28 MMOL/L (20-31); CHLORIDE LEVEL 108 MMOL/L (98-107); CREATININE FOR GFR 0.66 MG/DL (0.70-1.30); GLOMERULAR FILTRATION RATE > 90.0 (>42); POTASSIUM SERUM 4.5 MMOL/L (3.5-5.1); SODIUM LEVEL 144 MMOL/L (136-145)
[2024-12-29] MEDS ORDERED: CEFD300CAP PO (10:17)
[2024-12-29 12:00] VITALS: BP 140/78; TEMP 97.5; O2SAT 95
[2024-12-29] MEDS ORDERED: INSULIN LISPRO (NovoLOG) PER UNIT SC SCH (21:00)
== END 2024-12-29 13:26 | disposition home or self-care (01) ==
LOC: M ED 02:27 → M ED INP 09:28 → INTOOBSV 09:28 → M MSPAV 12:10
PROVIDERS: ADMIT General Practice; ATTEND General Practice
DX: N39.0 Urinary tract infection, site not specified (principal); G93.41 Metabolic encephalopathy; E87.20 Acidosis, unspecified; R94.30 Abnormal result of cardiovascular function study, unspecified; R05.3 Chronic cough; I25.10 Atherosclerotic heart disease of native coronary artery without angina pectoris; E11.51 Type 2 diabetes mellitus with diabetic peripheral angiopathy without gangrene; I10 Essential (primary) hypertension; E78.5 Hyperlipidemia, unspecified; J44.9 Chronic obstructive pulmonary disease, unspecified; E88.810 Metabolic syndrome; G62.9 Polyneuropathy, unspecified; I25.2 Old myocardial infarction; Z95.5 Presence of coronary angioplasty implant and graft; J30.2 Other seasonal allergic rhinitis; Z86.711 Personal history of pulmonary embolism; Z90.49 Acquired absence of other specified parts of digestive tract; Z95.828 Presence of other vascular implants and grafts; Z87.891 Personal history of nicotine dependence; Z79.899 Other long term (current) drug therapy; Z79.82 Long term (current) use of aspirin; Z79.02 Long term (current) use of antithrombotics/antiplatelets; Z79.51 Long term (current) use of inhaled steroids; Z79.52 Long term (current) use of systemic steroids; Z88.1 Allergy status to other antibiotic agents; Z88.5 Allergy status to narcotic agent
CPT/HCPCS: 36415; 70450; 71045; 74176; 80048; 80076; 81001; 82140; 82550; 82553; 83605; 84443; 84484; 85025; 85652; 86140; 87040; 87086; 87486; 87581; 87633; 87798; 93005; 93041; 94640; 94760; 96361; 96365; 96376; 97116; 97161; 97165; 97530; 99285; G0378; J0696; J1815; J7512

== ENCOUNTER → 2025-02-21 | Outpatient (CLI) | payer MEDICARE, OTHER ==
[~2025-02-21] MED LIST changes: +AMLO1TAB24 PO; +FURO20TA2 PO; +HYDR-3713 PO; +PROB1TAB2 PO
== END ==
LOC: M RAD 13:36
PROVIDERS: ATTEND Internal Medicine Pulmonary Disease
DX: R91.8 Other nonspecific abnormal finding of lung field (principal)

== ENCOUNTER → 2025-03-13 | Outpatient (REF) | payer MEDICARE, OTHER | LOC: M LAB REF 15:12 | PROVIDERS: ATTEND Podiatrist Foot & Ankle Surgery | DX: A49.02 Methicillin resistant Staphylococcus aureus infection, unspecified site (principal) ==